=== PATIENT | male | born 1955 | race Caucasian/White ===

== ENCOUNTER 2025-11-07 12:31 | Inpatient (IN) ==
--- NOTE | 2025-11-07 13:14 | XRay Report ---
SINGLE VIEW CHEST CLINICAL HISTORY: Dyspnea FINDINGS: An AP, portable, semierect chest radiograph is compared to chest x-ray and chest CT dated . A 2-lead cardiac pacemaker is in place. Leads project over the right atrial appendage and r ight ventricle. The heart is enlarged and no definite atherosclerotic calcification of the thoracic a abrahan. There is pulmonary vascular congestion with interstitial edema. Small pleural effusions are jose antonio pected with bibasilar consolidation. No pneumothorax is seen. The skeletal structures are osteopenic. The bony thorax is grossly intact. Arthritic change is seen in the shoulders. IMPRESSION: 1. Cardiomegaly and cardiac pacemaker with evidence of congestive failure and pulmonary edema. 2. Small pleural effusions with dependent consolidation. ACT 112: Negative or not required by law. Electronically signed by: Jeramy Orona M.D. 11/07/2025 1:12 PM
--- NOTE | 2025-11-07 13:16 | Emergency Department Note ---
Impression & Plan Acute on chronic hypoxic respiratory failure, Decompensated heart failure with preserved ejection fraction (HFpEF), Anemia, MARIAA (acute kidney injury) ED Provider Note NAME: SAMANTA SPIVEY AGE: 70 SEX: M : 1955 ARRIVES VIA: Ambulance INFORMANT: Patient, ED PROVIDER(S): Sean Souza MD CHIEF COMPLAINT: Shortness of breath MEDICAL DECISION MAKING: Blood work shows a white count of 7 with a hemoglobin of 8.2, platelet count kidney function is elevated at 1.88. Troponin of 34 with a BNP of 218. Patient did receive IV Lasix. Given patient's concern of shortness of breath and possible volume overload such as CHF exacerbation I did speak the on-call hospitalist service and the patient was admitted to medicine service. Critical Care: I have personally spent 35 minutes of critical care time in direct management of this patient. This includes bedside care, interpretation of diagnostic studies, and testing, discussion with consultants, patient, and family members, and other require inpatient management activities. This 35 minutes is in excess of all separately billable procedures. Discussion w/ other healthcare providers: Teresa Dickerson PA-C with Dr. Chen patient presents Prior /Outside records reviewed: None Differential diagnosis: Differential disc Diagnostics, as interpreted by me: ECG: V paced rhythm, rate 79 wide QRS left lower branch block pattern. No obvious STEMI based on Sgarbossa criteria Cardiac monitoring: An order was placed for continuous cardiac monitoring. The monitor shows a rate of with rhythm. Patient was placed on pulse oximetry Medical decision rules: None Imaging studies: I informally interpreted the patient's chest x-ray concerning for pulmonary edema with formal report to follow. HPI: Patient presents into the ER via ambulance for shortness of breath. He stated that he couldn't breath which prompted calling 911. Reports that he can breathe better now. He reports that in the ambulance they gave him oxygen. He says that his shortness of breath started 5-6 weeks ago and was also in the hospital and was diagnosed with COPD and pneumonia. For the past 5-6 weeks he has been using 2L of oxygen at home. He does have a pacemaker but is not sure if it has an IED with it. Denies any added salt in diet. He also states that he can lay on his back. He does admit to leg swelling but could not tell me if it is at baseline or not. Denies fever, chest pain, PND, lightheadedness, blurry vision, N/V/D, and orthostatic hypotension. PAST MEDICAL HISTORY: See Below PAST SURGICAL HISTORY: See Below SOCIAL HISTORY: See Below HOME MEDICATIONS: See Below ALLERGIES: See Below VITALS: See Below PHYSICAL EXAMINATION: GENERAL: NAD, non-toxic. Nasal cannula in place. EYE EXAM: Normal conjunctiva. PERRL, no anisocoria and EOM's grossly intact w/o pain. OROPHARYNX: Moist mucus membranes, grossly normal dentition. NECK: Trachea midline, no stridor. LUNGS: Bibasilar crackles. Normal chest wall mechanics. HEART: NSR, no MRG. ABDOMEN: Abdomen soft, non-tender, no masses, no rebound or guarding. BACK: No CVA TTP. SKIN: No rashes and no bruising. UPPER EXTREMITIES: Upper extremities are grossly normal. LOWER EXTREMITIES: Grossly normal, 1+ metric lower extremity edema without Ney erythema. Thema NEURO EXAM: Awake and alert, follows commands, no obvious facial asymmetry, normal speech, moves all 4 extremities. Past Med/Surg History Problem List (Updated 11/11/25 @ 12:53 by Sean Souza MD) MARIAA (acute kidney injury) (Acute) Acute on chronic diastolic heart failure with preserved ejection fraction Acute on chronic hypoxic respiratory failure (Acute) Chronic hypoxic respiratory failure Anemia (Acute) Decompensated heart failure with preserved ejection fraction (HFpEF) (Acute) Medical History COPD (chronic obstructive pulmonary disease) CKD (chronic kidney disease), stage III History of subdural hematoma History of CVA (cerebrovascular accident) Combined systolic and diastolic congestive heart failure Paroxysmal atrial fibrillation DM (diabetes mellitus), type 2 Surgical History Pacemaker 2019 [place] [facility] [place] Pres[facility] of Watchman left atrial appendage closure device Perc closure transcath left atrial appendage w/endocardial implant (Bilateral) by Dr. Meeks 03/02/25 Incisional hernia s/p repair 04[place]11 [place] [facility] [place]P cardiac pacemaker procedure History of craniotomy Social History Smoking Status: Never smoker Hx Alcohol Use: No Hx Substance Use: No Preferred Language: Burkinan Communication Ability: Effective Creeler Required: No Beliefs That Will Affect Care: None Current Living Situation: Alone Current Living Situation Comment: Lives Alone Other Information That Helps Us Care for You: No Feels Safe at Home: Yes Safety Concerns: Feels Safe At This Time Assistive Devices: None Assistive Devices Comment: oxygen 2L at baseline Allergies Allergies Allergy/AdvReac Type Severity Reaction Status Date / Time Penicillins Allergy Unknown UNKNOWN Verified 07/02/15 00:43 Home Meds Home Medications Medication Instructions Recorded Confirmed amlodipine 10 mg tablet 10 mg PO DAILY 11/07/25 11/07/25 ascorbic acid (vitamin C) 500 mg 500 mg PO DAILY 11/07/25 11/07/25 chewable tablet (Vitamin C) aspirin 81 mg chewable tablet 81 mg PO DAILY 11/07/25 11/07/25 atorvastatin 40 mg tablet 40 mg PO DAILY 11/07/25 11/07/25 carvedilol 25 mg tablet 25 mg PO BID 11/07/25 11/07/25 cetirizine 10 mg tablet 10 mg PO DAILY 11/07/25 11/07/25 clopidogrel 75 mg tablet 75 mg PO DAILY 11/07/25 11/07/25 empagliflozin 25 mg tablet 25 mg PO DAILY 11/07/25 11/07/25 (Jardiance) famotidine 20 mg tablet 20 mg PO BID 11/07/25 11/07/25 ferrous sulfate 325 mg (65 mg 325 mg PO TID 11/07/25 11/07/25 iron) tablet folic acid 1 mg tablet 1 mg PO DAILY 11/07/25 11/07/25 furosemide 20 mg tablet 20 mg PO DAILY Edema 11/07/25 11/07/25 insulin degludec 100 unit/mL (3 18 unit subcut DAILY 11/07/25 11/07/25 mL) subcutaneous pen (Tresiba FlexTouch U-100 insulin) montelukast 10 mg tablet 10 mg PO HS 11/07/25 11/07/25 omeprazole 20 mg capsule,delayed 20 mg PO DAILY 11/07/25 11/07/25 release semaglutide 0.25 mg or 0.5 mg (2 0.5 mg subcut WK 11/07/25 11/07/25 mg/3 mL) subcutaneous pen injector (Ozempic) tiotropium bromide 2.5 2 inh inhalation DAILY 11/07/25 11/07/25 mcg/actuation mist for inhalation (Spiriva Respimat) Results & Data (ED) Vital Signs Vital Signs - 24 hr 11/07/25 12:45 11/07/25 12:45 11/07/25 12:45 Temperature 36.5 C Temperature Source Oral Pulse Rate Pulse Rate [Apical] 74 Pulse Rhythm Pulse Rhythm [Apical] Regular Pulse Strength Pulse Strength [Apical] Normal Respiratory Rate 19 Respiratory Effort / Characteristics Spontaneous Labored Spontaneous Labored Respiratory Depth Normal Respiratory Pattern Regular Regular Blood Pressure Blood Pressure [Right Arm] 142/74 H Blood Pressure Mean Blood Pressure Mean [Right Arm] 96 Blood Pressure Position Blood Pressure Position [Right Arm] Sitting Pulse Oximetry 93 93 Oxygen Delivery Method Nasal Cannula Nasal Cannula Nasal Cannula Oxygen Flow Rate 4 4 4 Sepsis Recent Fever Within 48 Hours Sepsis New/Unexplained Change in Mental Status Sepsis Action Taken by Nursing 11/07/25 12:47 11/07/25 12:53 11/07/25 13:02 Temperature 36.6 C Temperature Source Oral Pulse Rate 61 74 62 Pulse Rate [Apical] Pulse Rhythm Regular Regular Pulse Rhythm [Apical] Pulse Strength Normal Pulse Strength [Apical] Respiratory Rate 19 23 Respiratory Effort / Characteristics Spontaneous Labored Respiratory Depth Normal Respiratory Pattern Regular Blood Pressure 142/74 H Blood Pressure [Right Arm] Blood Pressure Mean 96 Blood Pressure Mean [Right Arm] Blood Pressure Position Sitting Blood Pressure Position [Right Arm] Pulse Oximetry 93 93 Oxygen Delivery Method Nasal Cannula Nasal Cannula Oxygen Flow Rate 4 4 Sepsis Recent Fever Within 48 Hours No Sepsis New/Unexplained Change in Mental Status N/A Sepsis Action Taken by Nursing No Action Required Home Medications Current Medication List: was personally reviewed by me Laboratory Data Attestation: I reviewed the patient's lab results. 11/11/25 05:14 11/11/25 05:14 Lab Results 11/07/25 Range/Units 12:50 WBC 7.29 (4.8-10.8) K/ul RBC 2.58 L (4.70-6.10) M/uL Hgb 8.2 L (14.0-18.0) g/dL Hct 26.5 L (42.0-52.0) % MCV 102.7 H (80.0-100.0) fL MCH 31.8 (25.0-34.0) pg MCHC 30.9 L (32.0-36.0) g/dL RDW Std Deviation 57.1 H (36.4-46.3) fL RDW Coeff of [place] 15.3 H (11.5-14.5) % Plt Count 220 (130-400) K/uL MPV 10.4 (9.4-12.4) fL Immature Gran % (Auto) 0.4 % Neut % (Auto) 79.5 % Lymph % (Auto) 8.8 % Hayes % (Auto) 8.2 % Eos % (Auto) 2.6 % Baso % (Auto) 0.5 % Neut # (Auto) 5.79 (1.40-6.50) K/uL Lymph # (Auto) 0.64 L (1.20-3.40) K/uL Hayes # (Auto) 0.60 H (0.11-0.59) K/uL Eos # (Auto) 0.19 (0.00-0.50) K/uL Baso # (Auto) 0.04 (0.00-0.20) K/uL Immature Gran # (Auto) 0.03 (0.01-0.20) K/uL Sodium 147 H (136-145) mmol/L Potassium 4.9 (3.5-5.1) mmol/L Chloride 112 H (98-107) mmol/L Carbon Dioxide 32 (21-32) mmol/L Anion Gap 3 (3-11) BUN 31 H (6-23) mg/dl Creatinine 1.88 H (0.6-1.4) mg/dl Est Cr Clr Drug Dosing 45.8 ml/min eGFR 37.96 BUN/Creatinine Ratio 16.5 (10-20) Glucose 119 H (70-99(Fasting)) mg/dl Calcium 8.8 (8.6-10.3) mg/dl Total Bilirubin 0.6 (0.2-1.0) mg/dl AST 14 (13-39) U/L ALT 10 (7-52) U/L Alkaline Phosphatase 92 (34-104) U/L Troponin I High Sens 34.1 H (0-20) pg/ml B-Natriuretic Peptide 218 H (0-100) pg/ml Total Protein 5.8 L (6.0-8.3) gm/dl Albumin 3.5 (3.4-5.0) gm/dl Globulin 2.3 L (2.5-4.0) gm/dl Albumin/Globulin Ratio 1.5 (0.9-2) Administered Medications Albuterol (Albut/Ipratrop 3mg/0.5mg Neb 3 Ml Vial) 3 ml NEB Q6R [facility]; Protocol Stop: 12/08/25 12:59 Last Admin: 11/11/25 07:23 Dose: 3 ml Documented By: Admin: 11/11/25 01:47 Dose: Not Given Documented By: Admin: 11/10/25 20:06 Dose: 3 ml Documented By: Admin: 11/10/25 12:07 Dose: 3 ml Documented By: Admin: 11/10/25 07:09 Dose: 3 ml Documented By: Admin: 11/10/25 01:06 Dose: Not Given Documented By: Admin: 11/09/25 20:40 Dose: 3 ml Documented By: Admin: 11/09/25 13:22 Dose: 3 ml Documented By: Admin: 11/09/25 07:05 Dose: 3 ml Documented By: Admin: 11/09/25 00:11 Dose: 3 ml Documented By: Admin: 11/08/25 19:43 Dose: 3 ml Documented By: Admin: 11/08/25 11:59 Dose: 3 ml Documented By: MARK Amlodipine Besylate (Amlodipine Besylate 5 Mg Tab) 5 mg PO DAILY [facility] Stop: 12/10/25 08:59 Last Admin: 11/11/25 08:58 Dose: 5 mg Documented By: Admin: 11/10/25 08:56 Dose: 5 mg Documented By: GIANFRANCO Ascorbic Acid (Ascorbic Acid 500 Mg Tab) 500 mg PO DAILY [facility] Stop: 12/08/25 08:59 Last Admin: 11/11/25 08:59 Dose: 500 mg Documented By: Admin: 11/10/25 08:56 Dose: 500 mg Documented By: Admin: 11/09/25 08:54 Dose: 500 mg Documented By: MARIA R Admin: 11/08/25 09:46 Dose: 500 mg Documented By: FRANTZ Aspirin (Aspirin 81 Mg Chew) 81 mg PO DAILY [facility] Stop: 12/08/25 08:59 Last Admin: 11/11/25 09:06 Dose: 81 mg Documented By: Admin: 11/10/25 08:57 Dose: 81 mg Documented By: Admin: 11/09/25 09:01 Dose: 81 mg Documented By: MARIA R Admin: 11/08/25 09:45 Dose: 81 mg Documented By: FRANTZ Atorvastatin Calcium (Atorvastatin 40 Mg Tab) 40 mg PO DAILY [facility] Stop: 12/08/25 08:59 Last Admin: 11/11/25 08:59 Dose: 40 mg Documented By: Admin: 11/10/25 08:57 Dose: 40 mg Documented By: Admin: 11/09/25 08:54 Dose: 40 mg Documented By: MARIA R Admin: 11/08/25 09:46 Dose: 40 mg Documented By: FRANTZ Carvedilol (Carvedilol 25 Mg Tab) 25 mg PO BIDM [facility] Stop: 12/07/25 20:59 Last Admin: 11/11/25 08:58 Dose: 25 mg Documented By: Admin: 11/10/25 17:43 Dose: 25 mg Documented By: Admin: 11/10/25 08:56 Dose: 25 mg Documented By: Admin: 11/09/25 17:54 Dose: 25 mg Documented By: MARIA R Cetirizine HCl (Cetirizine Hcl 10 Mg Tablet) 10 mg PO DAILY [facility] Stop: 12/08/25 08:59 Last Admin: 11/11/25 08:58 Dose: 10 mg Documented By: Admin: 11/10/25 08:57 Dose: 10 mg Documented By: Admin: 11/09/25 08:54 Dose: 10 mg Documented By: MARIA R Admin: 11/08/25 09:46 Dose: 10 mg Documented By: FRANTZ Famotidine (Famotidine 20 Mg Tab) 20 mg PO BID [facility] Stop: 12/07/25 20:59 Last Admin: 11/11/25 09:06 Dose: 20 mg Documented By: Admin: 11/10/25 20:59 Dose: 20 mg Documented By: Admin: 11/10/25 08:58 Dose: 20 mg Documented By: Admin: 11/09/25 20:21 Dose: 20 mg Documented By: Admin: 11/09/25 09:01 Dose: 20 mg Documented By: MARIA R Admin: 11/08/25 19:41 Dose: 20 mg Documented By: Admin: 11/08/25 09:46 Dose: 20 mg Documented By: Admin: 11/07/25 22:00 Dose: 20 mg Documented By: MCKENZIE Ferrous Sulfate (Ferrous Sulfate 325 Mg Tab) 325 mg PO DAILY [facility] Stop: 12/08/25 08:59 Last Admin: 11/11/25 08:58 Dose: 325 mg Documented By: Admin: 11/10/25 08:56 Dose: 325 mg Documented By: Admin: 11/09/25 08:53 Dose: 325 mg Documented By: MARIA R Admin: 11/08/25 09:47 Dose: 325 mg Documented By: FRANTZ Folic Acid (Folic Acid 1 Mg Tab) 1 mg PO DAILY [facility] Stop: 12/08/25 08:59 Last Admin: 11/11/25 08:58 Dose: 1 mg Documented By: Admin: 11/10/25 08:57 Dose: 1 mg Documented By: Admin: 11/09/25 08:54 Dose: 1 mg Documented By: MARIA R Admin: 11/08/25 09:47 Dose: 1 mg Documented By: FRANTZ Furosemide (Furosemide 40 Mg/4 Ml Vial) 40 mg IV BID [facility] Stop: 12/11/25 08:59 Last Admin: 11/11/25 09:00 Dose: 40 mg Documented By: Insulin Aspart (Insulin Aspart Per Unit Charge) 0 units SC ACHS [facility] Stop: 12/07/25 16:29 Last Admin: 11/11/25 12:27 Dose: 10 units Documented By: EUNICE Co-signed By: MICKIE Admin: 11/11/25 08:00 Dose: 5 units Documented By: EUNICE Co-signed By: RUTHANN Admin: 11/10/25 20:52 Dose: Not Given Documented By: Admin: 11/10/25 17:43 Dose: 4 units Documented By: GIANFRANCO Co-signed By: ASHWIN Admin: 11/10/25 12:37 Dose: Not Given Documented By: Admin: 11/10/25 08:53 Dose: 3 units Documented By: GIANFRANCO Co-signed By: MAGNO Admin: 11/09/25 20:19 Dose: Not Given Documented By: Admin: 11/09/25 17:53 Dose: 2 units Documented By: MARIA R Co-signed By: ASHWIN Admin: 11/09/25 12:29 Dose: 3 units Documented By: WS Co-signed By: EP Admin: 11/09/25 08:56 Dose: 3 units Documented By: MARIA R Co-signed By: EP Admin: 11/08/25 21:21 Dose: 1 units Documented By: CONSTANTINO Co-signed By: ZAIN Admin: 11/08/25 17:41 Dose: 1 units Documented By: CECILIA Co-signed By: NM Admin: 11/08/25 13:01 Dose: Not Given Documented By: FRANTZ Co-signed By: CARLITOS Admin: 11/08/25 09:02 Dose: Not Given Documented By: AK Co-signed By: GIANFRANCO Admin: 11/07/25 21:47 Dose: Not Given Documented By: Admin: 11/07/25 18:11 Dose: 1 units Documented By: Co-signed By: dst Insulin Glargine (Lantus Per Unit Charge) 10 units SQ DAILY [facility] Stop: 12/11/25 08:59 Last Admin: 11/11/25 09:08 Dose: 10 units Documented By: EUNICE Co-signed By: RUTHANN Miscellaneous (Carbohydrates For Hypoglycemia ) 15 - 30 gm PO UD PRN PRN Reason: Hypoglycemia Protocol Stop: 12/07/25 15:25 Last Admin: 11/08/25 02:00 Dose: 30 gm Documented By: [facility] Admin: 11/07/25 21:09 Dose: 24 gm Documented By: [facility] Admin: 11/07/25 20:38 Dose: 30 gm Documented By: [facility] Montelukast Sodium (Montelukast Sodium 10 Mg Tablet) 10 mg PO HS [facility] Stop: 12/07/25 20:59 Last Admin: 11/10/25 21:01 Dose: 10 mg Documented By: DAFrancine Admin: 11/09/25 20:21 Dose: 10 mg Documented By: Admin: 11/08/25 19:41 Dose: 10 mg Documented By: Admin: 11/07/25 22:00 Dose: 10 mg Documented By: [facility] Pantoprazole Sodium (Pantoprazole 40 Mg Tab) 40 mg PO DAILY [facility] Stop: 12/08/25 08:59 Last Admin: 11/11/25 08:58 Dose: 40 mg Documented By: Admin: 11/10/25 08:57 Dose: 40 mg Documented By: Admin: 11/09/25 08:54 Dose: 40 mg Documented By: MARIA R Admin: 11/08/25 09:47 Dose: 40 mg Documented By: FRANTZ Umeclidinium [place] (Umeclidinium [place] 62.5mcg/Blister 7 Puffs/Inhaler) 1 puffs INH DAILY [facility] Stop: 12/08/25 08:59 Last Admin: 11/11/25 08:55 Dose: 1 puffs Documented By: Admin: 11/10/25 08:57 Dose: 1 puffs Documented By: Admin: 11/09/25 09:02 Dose: 1 puffs Documented By: MARIA R Admin: 11/08/25 09:47 Dose: 1 puffs Documented By: FRANTZ Discontinued Medications Amlodipine Besylate (Amlodipine Besylate 5 Mg Tab) 10 mg PO DAILY [facility] Stop: 12/08/25 08:59 Last Admin: 11/09/25 08:54 Dose: 10 mg Documented By: MARIA R Admin: 11/08/25 09:46 Dose: 10 mg Documented By: FRANTZ Carvedilol (Carvedilol 25 Mg Tab) 25 mg PO BID [facility] Stop: 12/07/25 20:59 Last Admin: 11/09/25 08:53 Dose: 25 mg Documented By: MARIA R Admin: 11/08/25 19:41 Dose: 25 mg Documented By: Admin: 11/08/25 09:46 Dose: 25 mg Documented By: Admin: 11/07/25 22:00 Dose: 25 mg Documented By: MCKENZIE Empagliflozin (Empagliflozin 25 Mg Tab) 25 mg PO DAILY [facility] Stop: 12/08/25 08:59 Last Admin: 11/09/25 08:54 Dose: 25 mg Documented By: MARIA R Furosemide (Furosemide 40 Mg/4 Ml Vial) 40 mg IV ONE ONE Stop: 11/07/25 13:36 Last Admin: 11/07/25 15:57 Dose: Not Given Documented By: MARTIN Furosemide (Furosemide 40 Mg/4 Ml Vial) 40 mg IV ONE ONE Stop: 11/07/25 15:55 Last Admin: 11/07/25 16:04 Dose: 40 mg Documented By: MARTIN Furosemide (Furosemide Inj 20 Mg/2 Ml Vial) 20 mg IV ONE ONE Stop: 11/07/25 21:01 Last Admin: 11/07/25 22:00 Dose: 20 mg Documented By: MCKENZIE Furosemide (Furosemide 40 Mg/4 Ml Vial) 40 mg IV DAILY [facility] Stop: 12/08/25 08:59 Last Admin: 11/08/25 09:51 Dose: 40 mg Documented By: FRANTZ Furosemide (Furosemide 40 Mg/4 Ml Vial) 40 mg IV ONE ONE Stop: 11/08/25 16:28 Last Admin: 11/08/25 17:34 Dose: 40 mg Documented By: CECILIA Furosemide (Furosemide 40 Mg/4 Ml Vial) 40 mg IV ONE ONE Stop: 11/10/25 16:13 Last Admin: 11/10/25 17:43 Dose: 40 mg Documented By: GIANFRANCO Furosemide (Furosemide Inj 20 Mg/2 Ml Vial) 20 mg IV ONE ONE Stop: 11/11/25 00:21 Last Admin: 11/11/25 00:49 Dose: 20 mg Documented By: MAICO Dextrose (D5w) 1,000 mls @ 40 mls/hr IV .Q24H [facility] Stop: 11/11/25 03:14 Last Infusion: 11/09/25 00:49 Dose: Infused Documented By: Infusion: 11/08/25 17:27 Dose: 0 mls/hr Documented By: Admin: 11/08/25 04:15 Dose: 40 mls/hr Documented By: MCKENZIE Iron Sucrose 300 mg/ Sodium (Chloride) 265 mls @ 176.667 mls/hr IV TODAY ONE Stop: 11/09/25 10:44 Last Admin: 11/09/25 10:47 Dose: Not Given Documented By: MARIA R Methylprednisolone 40 mg/ (Syringe) 0.64 mls @ 1.5 mls/min IV BID [facility] Stop: 12/10/25 20:59 Last Admin: 11/11/25 08:57 Dose: 1.5 mls/min Documented By: Admin: 11/10/25 21:00 Dose: 1.5 mls/min Documented By: MAICO Insulin Glargine (Lantus Per Unit Charge) 5 units SQ DAILY [facility] Stop: 12/09/25 08:59 Last Admin: 11/10/25 08:53 Dose: 5 units Documented By: GIANFRANCO Co-signed By: MAGNO Admin: 11/09/25 08:57 Dose: 5 units Documented By: MARIA R Co-signed By: ASHWIN Imaging Data Radiologist's Impression: Chest X-Ray 11/07/25 12:55 SINGLE VIEW CHEST CLINICAL HISTORY: Dyspnea FINDINGS: An AP, portable, semierect chest radiograph is compared to chest x-ray and chest CT dated 07/02/2015. A 2-lead cardiac pacemaker is in place. Leads project over the right atrial appendage and right ventricle. The heart is enlarged and no definite atherosclerotic calcification of the thoracic aorta. There is pulmonary vascular congestion with interstitial edema. Small pleural effusions are suspected with bibasilar consolidation. No pneumothorax is seen. The skeletal structures are osteopenic. The bony thorax is grossly intact. Arthritic change is seen in the shoulders. IMPRESSION: 1. Cardiomegaly and cardiac pacemaker with evidence of congestive failure and pulmonary edema. 2. Small pleural effusions with dependent consolidation. ACT 112: Negative or not required by law. Electronically signed by: Jeramy Orona M.D. 11/07/2025 1:12 PM Discharge Plan Visit Data Chief Complaint: Shortness of Breath/Dyspnea Stated Complaint: FLUID RETENTION ED Provider: Sean Souza Discharge Problem: Acute on chronic hypoxic respiratory failure, Decompensated heart failure with preserved ejection fraction (HFpEF), Anemia, MARIAA (acute kidney injury) Patient Disposition: Admitted As Inpatient Condition: Good Discharge Instructions Interventions: ED Discharge Assessment Last Done: 11/07/25 16:10 Discharge Problem: Anemia Qualifiers: Anemia type: unspecified type Qualified Code(s): D64.9 - Anemia, unspecified
[2025-11-07 13:19] LABS: Hematocrit (blood only) 26.5 % (42.0-52.0); Hemoglobin 8.2 g/dL (14.0-18.0); Immature Granulocytes # (auto) 0.03 K/uL (0.01-0.20); Immature Granulocytes % (auto) 0.4 %; Mean Corpuscular Hemoglobin 31.8 pg (25.0-34.0); Mean Corpuscular Volume 102.7 fL (80.0-100.0); Platelet Count 220 K/uL (130-400); RDW Standard Deviation 57.1 fL (36.4-46.3); Red Blood Count 2.58 M/uL (4.70-6.10); White Blood Count 7.29 K/ul (4.8-10.8)
[2025-11-07 13:45] LABS: Alanine Aminotransferase 10.0 U/L (7-52); Albumin Globulin Ratio 1.5 (0.9-2); Albumin Level 3.5 gm/dl (3.4-5.0); Alkaline Phosphatase 92.0 U/L (34-104); Anion Gap 3.0 (3-11); Bilirubin,Total 0.6 mg/dl (0.2-1.0); Blood Urea Nitrogen 31.0 mg/dl (6-23); Calcium 8.8 mg/dl (8.6-10.3); Carbon Dioxide 32.0 mmol/L (21-32); Chloride 112.0 mmol/L (98-107); Creatinine Clr Calc Pharmacy 45.8 ml/min; Globulin 2.3 gm/dl (2.5-4.0); Glucose 119.0 mg/dl (70-99(Fasting)); Potassium 4.9 mmol/L (3.5-5.1); Sodium 147.0 mmol/L (136-145); Total Protein 5.8 gm/dl (6.0-8.3)
--- NOTE | 2025-11-07 14:14 | History & Physical Report ---
Date of Service November 07, 2025 Assessment & Plan (1) Chronic hypoxic respiratory failure: (2) Decompensated heart failure with preserved ejection fraction (HFpEF): (3) Anemia: (4) CKD (chronic kidney disease), stage III: (5) History of CVA (cerebrovascular accident): (6) Combined systolic and diastolic congestive heart failure: (7) Paroxysmal atrial fibrillation: (8) DM (diabetes mellitus), type 2: Plan This is a 70yo M with PMH of combined systolic and diastolic HF, type 2 diabetes, hypertension, COPD, heart block s/p pacemaker placement, paroxysmal atrial fibrillation, history of CVA, CKD 3, chronic hypoxic respiratory failure on 2L NC and other medical problems listed below who presents from home with increased shortness of breath and lower extremity swelling x 4 weeks. Acute on chronic respiratory failure Decompensated HFpEF Discharged from hospitalization at [place] for PNA in August 2025 with new 2 L O2 requirement, has continued to require at home In ED today, initially requiring 3-4 L for comfort, weaning as tolerated CXR reviewed - cardiomegaly and cardiac pacemaker with evidence of congestive failure and pulmonary edema Recent echo from 10/26/25, similar compared to previous echo from Nov 2023. EF remains 50-54%, with septal motion is abnormal consistent with right ventricular pacemaker. The left atrium is moderately enlarged BNP 218, HS trop 34.1 -> 39.8 ECG with paced rhythm Given 40mg IV Lasix in ED, plan for add'l 20mg this evening Strict I&Os, daily weights, low Na diet Routine cards consult Anemia, macrocytic Hgb 8-9 since August, was closer to 10 prior to that Was on DAPT for Watchman device placed in February, instructed to dc plavix last month per chart review but patient ? still taking - discontinue plavix Has been supplementing with iron TID per patient ? continue at daily dose Iron studies, Vit B12 and folate in AM CKD 3 Cr 1.88, baseline Cr~2. Follows with Dr. Bauman in clinic Presence of Watchman left atrial appendage closure device Dc plavix per interventional cards note instructions, continue aspirin 81mg daily indefinitely S/p pacemaker placement in 2018 Type 2 diabetes A1c 6.4 in 08/2025 Hold home agents SSI while in-patient Glycemic consult placed due to hypoglycemic episode - appreciate recs for OP regimen BSG ACHS DVT Ppx: SCDs for now Code status: FULL PCP: Opal Galeas Dispo: Admitted to PCU Patient seen in collaboration with Dr. Chen. Please see addendum. I spent a total of 75 minutes coordinating, documenting, and providing care for this patient excluding time spent in the performance of separately billed services or time spent by another provider/QHP. History of Present Illness Chief Complaint: SOB Primary Care Provider: Reji Love MD This is a 70yo M with PMH of combined systolic and diastolic HF, type 2 diabetes, hypertension, COPD, heart block s/p pacemaker placement, paroxysmal atrial fibrillation, history of CVA, CKD 3, chronic hypoxic respiratory failure on 2L NC and other medical problems listed below who presents from home with increased shortness of breath and lower extremity swelling x 4 weeks. Ever since patient was admitted to [facility] in August for pneumonia, has felt more short of breath. Was discharged from that admission on 2 L nasal cannula O2, which she has remained on at home. Patient continues to feel short of breath, which is exacerbated by movement and feels generally weak and fatigued compared to the past. Had a Watchman device implanted by Dr. Meeks in February of this year and was instructed via [employer] to discontinue Plavix last month. Patient is unsure if he is still taking this or not. He manages his own medications. He was started by his agronomy advisor on Lasix 20 mg twice daily, per chart review. However, patient states he has been taking 20 mg daily at home, last dose this morning. Denies any fever, chills, nasal congestion, sore throat or wheezing. No headache, chest pain pain or palpitations. No nausea, vomiting, abdominal pain, dysuria, diarrhea or constipation. Ambulates with a walker at home but admittedly does not use it. Last echo performed 10/26/25 and was stable as compared to previous echo from Nov 2023. EF remains 50-54%, with septal motion is abnormal consistent with right ventricular pacemaker. The left atrium is moderately enlarged. Allergies Allergy/AdvReac Type Severity Reaction Status Date / Time Penicillins Allergy Unknown UNKNOWN Verified 07/02/15 00:43 Home Medications Medication Instructions Recorded Confirmed Type amlodipine 10 mg tablet 10 mg PO DAILY 11/07/25 11/07/25 History ascorbic acid (vitamin C) 500 mg 500 mg PO DAILY 11/07/25 11/07/25 History chewable tablet (Vitamin C) aspirin 81 mg chewable tablet 81 mg PO DAILY 11/07/25 11/07/25 History atorvastatin 40 mg tablet 40 mg PO DAILY 11/07/25 11/07/25 History carvedilol 25 mg tablet 25 mg PO BID 11/07/25 11/07/25 History cetirizine 10 mg tablet 10 mg PO DAILY 11/07/25 11/07/25 History clopidogrel 75 mg tablet 75 mg PO DAILY 11/07/25 11/07/25 History empagliflozin 25 mg tablet 25 mg PO DAILY 11/07/25 11/07/25 History (Jardiance) famotidine 20 mg tablet 20 mg PO BID 11/07/25 11/07/25 History ferrous sulfate 325 mg (65 mg 325 mg PO TID 11/07/25 11/07/25 History iron) tablet folic acid 1 mg tablet 1 mg PO DAILY 11/07/25 11/07/25 History furosemide 20 mg tablet 20 mg PO DAILY Edema 11/07/25 11/07/25 History insulin degludec 100 unit/mL (3 18 unit subcut DAILY 11/07/25 11/07/25 History mL) subcutaneous pen (Tresiba FlexTouch U-100 insulin) montelukast 10 mg tablet 10 mg PO HS 11/07/25 11/07/25 History omeprazole 20 mg capsule,delayed 20 mg PO DAILY 11/07/25 11/07/25 History release semaglutide 0.25 mg or 0.5 mg (2 0.5 mg subcut WK 11/07/25 11/07/25 History mg/3 mL) subcutaneous pen injector (Ozempic) tiotropium bromide 2.5 2 inh inhalation DAILY 11/07/25 11/07/25 History mcg/actuation mist for inhalation (Spiriva Respimat) Past Med/Surg History Problem List (Updated 11/07/25 @ 15:51 by Teresa Dickerson PA-C) Chronic hypoxic respiratory failure Anemia Decompensated heart failure with preserved ejection fraction (HFpEF) Medical History (Updated 11/07/25 @ 15:51 by Teresa Dickerson PA-C) CKD (chronic kidney disease), stage III History of subdural hematoma History of CVA (cerebrovascular accident) Combined systolic and diastolic congestive heart failure Paroxysmal atrial fibrillation DM (diabetes mellitus), type 2 Surgical History (Updated 11/07/25 @ 15:47 by Teresa Dickerson PA-C) Pacemaker 2019 S/P small bowel resection @ [facility] [place], 2019 Presence of Watchman left atrial appendage closure device Perc closure transcath left atrial appendage w/endocardial implant (Bilateral) by Dr. Meeks 03/02/25 Incisional hernia s/p repair 04/11 at [facility] [place] S/P cardiac pacemaker procedure History of craniotomy Social History Smoking Status: Never smoker Hx Alcohol Use: No Hx Substance Use: No Preferred Language: Cameroonian Communication Ability: Effective Can Feeder Required: No Beliefs That Will Affect Care: None Current Living Situation: Alone Current Living Situation Comment: Lives Alone Other Information That Helps Us Care for You: No Feels Safe at Home: Yes Safety Concerns: Feels Safe At This Time Assistive Devices: Oxygen - Continuous Assistive Devices Comment: oxygen 2L at baseline Review of Systems Review of Systems: At least ten systems reviewed and negative except as noted in the HPI. Physical Exam Physical Exam: General Appearance: WD/WN, vitals as above, NAD, sitting up in bed, pleasant, conversational dyspnea Head: normocephalic, atraumatic Eyes: normal inspection, PERRL, conjunctivae normal, anicteric sclerae ENT: external ear and nose normal Neck: normal visual inspection Respiratory: increased respiratory effort, bibasilar rales, no wheeze or, rhonchi Cardiovascular: RRR, 1+ BLE edema Chest: normal inspection of chest Abdomen/GI: normal bowel sounds, soft, nontender, no hepatosplenomegaly Extremities/Musculoskeletal: no cyanosis or clubbing, extremities motor stre ngth 5/5 Neurologic: PERRL, EOMI, accommodation nl, no face palsy, no dysarthria, CN's II-XI intact bilaterally and moves all extremities Psychiatric: A+Ox3, poor insight Skin: normal color, warm/dry Results & Data Results & Data Vital Signs (Past 12 Hours) Vital Signs Temp Pulse Pulse Resp BP BP Pulse Ox 11/07/25 13:02 62 23 93 11/07/25 12:53 36.6 C 74 19 142/74 H 93 11/07/25 12:47 61 11/07/25 12:45 36.5 C 74 19 142/74 H 93 11/07/25 12:45 93 11/07/25 12:45 O2 Del Method O2 Flow Rate 11/07/25 13:02 Nasal Cannula 4 11/07/25 12:53 Nasal Cannula 4 11/07/25 12:47 11/07/25 12:45 Nasal Cannula 4 11/07/25 12:45 Nasal Cannula 4 11/07/25 12:45 Nasal Cannula 4 Laboratory Results Short CBC 11/07/25 Range/Units 12:50 WBC 7.29 (4.8-10.8) K/ul Hgb 8.2 L (14.0-18.0) g/dL Hct 26.5 L (42.0-52.0) % Plt Count 220 (130-400) K/uL BMP 11/07/25 12:50 Sodium 147 H Potassium 4.9 Chloride 112 H Carbon Dioxide 32 BUN 31 H Creatinine 1.88 H Glucose 119 H Calcium 8.8 Liver Function 11/07/25 Range/Units 12:50 Total Bilirubin 0.6 (0.2-1.0) mg/dl AST 14 (13-39) U/L ALT 10 (7-52) U/L Alkaline Phosphatase 92 (34-104) U/L Albumin 3.5 (3.4-5.0) gm/dl Diagnostic Findings Chest X-Ray 11/07/25 12:55 SINGLE VIEW CHEST CLINICAL HISTORY: Dyspnea FINDINGS: An AP, portable, semierect chest radiograph is compared to chest x-ray and chest CT dated 07/02/2015. A 2-lead cardiac pacemaker is in place. Leads project over the right atrial appendage and right ventricle. The heart is enlarged and no definite atherosclerotic calcification of the thoracic aorta. There is pulmonary vascular congestion with interstitial edema. Small pleural effusions are suspected with bibasilar consolidation. No pneumothorax is seen. The skeletal structures are osteopenic. The bony thorax is grossly intact. Arthritic change is seen in the shoulders. IMPRESSION: 1. Cardiomegaly and cardiac pacemaker with evidence of congestive failure and pulmonary edema. 2. Small pleural effusions with dependent consolidation. ACT 112: Negative or not required by law. Electronically signed by: Jeramy Orona M.D. 11/07/2025 1:12 PM Supervising Physician Co-Signing Physician Notes Attending Addendum: Case reviewed with the advanced practitioner. I have personally performed a history and physical examination on the patient. I have reviewed the advanced practitioner's documentation on the date of service referenced in note, and I agree with, and take responsibility for the plan of care. please refer to her notes for full details patient seen and examined, records reviewed by myself as well on exam, patient seen resting in bed, comfortable states he feels ok overall breathing is somewhat improving denies cough, sputum production, fever/chills, chest pain no other symptoms VS noted and reviewed oriented x3, not in distress, speaks in sentences with no effort nor accessory muscle use normal rate, regular rhythm, no murmurs (+) mild rales at the bases non distended, soft, nontender (+) grade 1 lower ext edema, No erythema, warmth no neuro deficits all labs, imaging noted and reviewed ASSESSMENT AND PLAN> ACUTE ON CHRONIC HFrEF EXACERBATION ACUTE HYPOXIA SECONDARY TO ABOVE Lasix 40mg IV given at the ER, another 20mg IV ordered for tonight re-evaluate in AM Recent echo from 10/26/25, similar compared to previous echo from Nov 2023. EF remains 50-54%, with septal motion is abnormal consistent with right ventricular pacemaker. The left atrium is moderately enlarged Cardiology service consulted ANEMIA check anemia panel other diagnoses and plan of care as per advanced practitioner's notes I spent a total of 45 minutes coordinating, documenting, and providing care for this patient, excluding time spent in the performance of separately billed services or time spent by another provider/QHP. Frankie Chen MD
[2025-11-07] MEDS ORDERED: GLUCOSE 10 TAB/TUBE PO PRN (15:26)
[2025-11-07] MEDS ORDERED: GLUCAGON FOR INJ 1 MG VIAL SQ PRN (15:26)
[2025-11-07] MEDS ORDERED: GLUCOSE 40% GEL 15 GM TUBE PO PRN (15:26)
[2025-11-07] MEDS ORDERED: DEXTROSE 50% 50 ML SYRINGE IV PRN (15:26)
[2025-11-07] MEDS: FUROSEMIDE 40 MG/4 ML VIAL IV ONE ×2 (15:57→16:04)
[2025-11-07] MEDS ORDERED: PHARMACY GLYCEMIC MGMT CONSULT PRN (16:16)
[2025-11-07] MEDS ORDERED: POLYETHYLENE (MIRALAX) 17 GM PACK PO PRN (16:32)
[2025-11-07] MEDS ORDERED: ACETAMINOPHEN 325 MG TAB PO PRN (16:32)
[2025-11-07] MEDS ORDERED: ONDANSETRON INJ 2 MG/ML 2 ML VIAL IV PRN (16:32)
[2025-11-07] MEDS ORDERED: INFLUENZA VACC TS2025-26(65y+)/PF (IIV3) 0.5mL Syr IM ONE (17:11)
[2025-11-07] MEDS ORDERED: PNEUMOCOCCAL VACCINE (PCV20) 20-VAL CONJ-DIP CRM/PF 0.5 ML SYR IM ONE (17:11)
[2025-11-07] MEDS: INSULIN ASPART PER UNIT CHARGE SC SCH (18:11)
[2025-11-07] MEDS: CARBOHYDRATES FOR HYPOGLYCEMIA PO PRN (20:38)
[2025-11-07] MEDS ORDERED: LANTUS PER UNIT CHARGE SQ SCH (21:00)
[2025-11-07] MEDS: FAMOTIDINE 20 MG TAB PO SCH (22:00)
[2025-11-07] MEDS: FUROSEMIDE INJ 20 MG/2 ML VIAL IV ONE (22:00)
[2025-11-07] MEDS: MONTELUKAST SODIUM 10 MG TABLET PO SCH (22:00)
[2025-11-08] MEDS: DEXTROSE 5% 1,000 ML IV SCH (04:15)
[2025-11-08 05:58] LABS: Hematocrit (blood only) 28.2 % (42.0-52.0); Hemoglobin 8.5 g/dL (14.0-18.0); Mean Corpuscular Hemoglobin 31.3 pg (25.0-34.0); Mean Corpuscular Volume 103.7 fL (80.0-100.0); Platelet Count 225 K/uL (130-400); RDW Standard Deviation 58.0 fL (36.4-46.3); Red Blood Count 2.72 M/uL (4.70-6.10); White Blood Count 7.11 K/ul (4.8-10.8)
[2025-11-08 06:12] LABS: Anion Gap 5.0 (3-11); Blood Urea Nitrogen 34.0 mg/dl (6-23); Calcium 9.1 mg/dl (8.6-10.3); Carbon Dioxide 32.0 mmol/L (21-32); Chloride 108.0 mmol/L (98-107); Creatinine Clr Calc Pharmacy 42.6 ml/min; Glucose 87.0 mg/dl (70-99(Fasting)); Iron 31.0 mcg/dl (35-175); Magnesium 2.1 mg/dl (1.7-2.4); Potassium 5.0 mmol/L (3.5-5.1); Sodium 145.0 mmol/L (136-145); Total Iron Binding Cap Calc 267.0 mcg/dl (250-450); Transferrin 191.0 mg/dl (200-360); Transferrin (FE) Percent Satur 12.0 % (20-50)
[2025-11-08 06:40] LABS: Folate (Folic Acid),Ser orPlas > 22.30 ng/ml (>5.38)
[2025-11-08 06:41] LABS: Vitamin B12 270 pg/ml (180-914)
[2025-11-08 07:28] LABS: Hemoglobin A1C 6.7 % (4.5-5.6)
--- NOTE | 2025-11-08 07:56 | Hospitalist Progress Note ---
Date of Service November 08, 2025 Assessment & Plan (1) Acute on chronic hypoxic respiratory failure: (2) Acute on chronic diastolic heart failure with preserved ejection fraction: (3) COPD (chronic obstructive pulmonary disease): (4) Paroxysmal atrial fibrillation: (5) CKD (chronic kidney disease), stage III: (6) Anemia: (7) DM (diabetes mellitus), type 2: Plan This is a 70yo M with PMH of combined systolic and diastolic HF, type 2 diabetes, hypertension, COPD, heart block s/p pacemaker placement, paroxysmal atrial fibrillation, history of CVA, CKD 3, chronic hypoxic respiratory failure on 2L NC and other medical problems listed below who presents from home with i ncreased shortness of breath and lower extremity swelling x 4 weeks. Acute on chronic respiratory failure Acute on chronic HFpEF Discharged from hospitalization at [place] for COPD exacerbation secondary to PNA in Jul 2025 with new 2L O2 requirement Patient presenting with worsening SOB, edema, increased O2 requirement CXR reviewed - cardiomegaly and cardiac pacemaker with evidence of congestive failure and pulmonary edema TTE on 10/26/25 with EF 50-54%, septal motion is abnormal consistent with right ventricular pacemaker, left atrium is moderately enlarged -> similar compared to prior in Nov 2023 BNP 218 Currently on 3L O2-> try to wean to baseline of 2L as able Continue IV lasix 40mg daily for now (prescribed 20mg daily by PCP in Aug for LE edema) Continue daily weights, I&Os, low salt diet Cardiology following COPD Patient denies fevers and cough (although nursing notes productive cough), no leukocytosis Exacerbation possible but presentation likely due to CHF more than COPD Continue home Spiriva inhaler Add duonebs q6hr due to decreased air entry Follow up with Pulmonology as scheduled in November Paroxysmal A fib History of complete heart block s/p dual chamber pacemaker (2018) Presence of Watchman left atrial appendage closure device Rate controlled No longer on anticoagulation since presence of Watchman left atrial appendage closure device Continue baby aspirin and Coreg Macrocytic anemia Hgb 8-9 since August, was closer to 10 prior to that Started on iron supplementation during hospitalization at [place] PCP notes possible need for IV iron due to CKD and poor absorption of oral iron B12 and folate WNL Monitor CBC CKD [address] Bauman Creatinine at baseline of ~2.0 Avoid nephrotoxic agents as able Monitor renal function Type 2 diabetes A1c 6.7 Hold home agents BSG ACHS and SSI while inpatient Glycemic consult placed due to hypoglycemic episode - appreciate recs for OP regimen DVT Prophylaxis: SCDs Code Status: FULL CODE PCP: Reji Love Disposition: PT/OT recommending rehab at discharge Patient seen in collaboration with Dr. Rojas. Please see addendum. I spent a total of 60 minutes coordinating, documenting and providing care for this patient excluding time spent in the performance of separately billed services or time spent by another provider/QHP. Admission and Anticipated Discharge Date Admission Date: November 07, 2025 Supervising Physician Co-Signing Physician Notes Attending addendum: The patient was seen and examined in telemetry unit He was admitted with increasing shortness of breath and weakness and also leg swelling Noted to have combination of CHF on top of COPD and paroxysmal atrial fibrillation Has been feeling little better since admission Upon examination Sitting on a recliner without any acute distress Remains hemodynamically stable and requiring 3 L to maintain saturation Chestdecreased breath sounds bilaterally the lower area mainly with crackles at the bases. No wheezing HeartS1-S2 regular Abdomenbenign Extremitiesbilateral swelling of the legs with 1+ edema His admission labs, EKG and imaging studies reviewed Has a acute on chronic hypoxic respiratory failure complicated by acute on chronic diastolic heart failure , atrial fibrillation and also COPD Does not have any COPD exacerbationWill continue with nebulized bronchodilator and he is usual inhalers Has been getting intravenous Lasix for fluid overload/acute on chronic diastolic CHF He usually takes 2 L of oxygen at home and now requiring 3 which is expected to improve Agree with assessment and plan as outlined above by Batsheva SPEAR and take the full responsibility of care in the hospital Total time taken to see the patient, examining him, reviewing medications and labs and planning care was [address] Mary Rojas Subjective Patient seen resting in bed Reports he woke up feeling foggy Is unsure if his breathing is improved or not Denies dizziness, cough, chest pain, abdominal pain, N/V/D Review of Systems Review of Systems: All systems reviewed & are unremarkable except as noted in HPI & below Physical Exam Physical Exam: General/Psych: obese, sitting up in bed, NAD, conversing easily Head: normocephalic, atraumatic Eyes: normal inspection, PERRL, conjunctivae pink Neck: normal visual inspection, trachea midline Respiratory: normal respiratory effort, lungs with decreased air entry and slight crackles, no wheezing, no accessory muscle use Cardiovascular: regular rate and rhythm, +murmur Extremities: no cyanosis or clubbing, normal peripheral pulses, 2+ BLE edema Abdomen/GI: normal bowel sounds, soft, nontender Neurologic/MSK: A+Ox3, motor strength 5/5, moves all extremities Skin: no rashes, normal color, warm and dry Results & Data Results & Data Vital Signs (Past 12 Hours) Vital Signs Temp Pulse Pulse Resp BP Pulse Ox O2 Del Method 11/08/25 07:00 36.5 C 63 18 126/65 97 Nasal Cannula 11/08/25 02:38 37.4 C 88 20 122/78 96 Room Air 11/07/25 22:44 37.3 C 80 20 136/88 96 Nasal Cannula 11/07/25 21:34 80 11/07/25 20:50 Nasal Cannula O2 Flow Rate 11/08/25 07:00 3 11/08/25 02:38 11/07/25 22:44 11/07/25 21:34 11/07/25 20:50 3 Laboratory Results Short CBC 11/07/25 11/08/25 Range/Units 12:50 05:22 WBC 7.29 7.11 (4.8-10.8) K/ul Hgb 8.2 L 8.5 L (14.0-18.0) g/dL Hct 26.5 L 28.2 L (42.0-52.0) % Plt Count 220 225 (130-400) K/uL BMP 11/07/25 11/08/25 12:50 05:22 Sodium 147 H 145 Potassium 4.9 5.0 Chloride 112 H 108 H Carbon Dioxide 32 32 BUN 31 H 34 H Creatinine 1.88 H 2.02 H Glucose 119 H 87 Calcium 8.8 9.1 Liver Function 11/07/25 Range/Units 12:50 Total Bilirubin 0.6 (0.2-1.0) mg/dl AST 14 (13-39) U/L ALT 10 (7-52) U/L Alkaline Phosphatase 92 (34-104) U/L Albumin 3.5 (3.4-5.0) gm/dl I have independently reviewed and interpreted patient's labs including CBC, BMP, Mag, A1C, anemia panel Medications Administered Current Inpatient Medications Acetaminophen (Acetaminophen 325 Mg Tab) 650 mg PO Q4H PRN PRN Reason: Pain or Fever Stop: 12/07/25 16:31 Albuterol (Albut/Ipratrop 3mg/0.5mg Neb 3 Ml Vial) 3 ml NEB Q6R [facility]; Protocol Stop: 12/08/25 12:59 Amlodipine Besylate (Amlodipine Besylate 5 Mg Tab) 10 mg PO DAILY G[facility]IAN Stop: 12/08/25 08:59 Last Admin: 11/08/25 09:46 Dose: 10 mg Ascorbic Acid (Ascorbic Acid 500 Mg Tab) 500 mg PO DAILY GILLIAN Stop: 12/08/25 08:59 Last Admin: 11/08/25 09:46 Dose: 500 mg Aspirin (Aspirin 81 Mg Chew) 81 mg PO DAILY [facility] Stop: 12/08/25 08:59 Last Admin: 11/08/25 09:45 Dose: 81 mg Atorvastatin Calcium (Atorvastatin 40 Mg Tab) 40 mg PO DAILY [facility] Stop: 12/08/25 08:59 Last Admin: 11/08/25 09:46 Dose: 40 mg Carvedilol (Carvedilol 25 Mg Tab) 25 mg PO BID [facility] Stop: 12/07/25 20:59 Last Admin: 11/08/25 09:46 Dose: 25 mg Cetirizine HCl (Cetirizine Hcl 10 Mg Tablet) 10 mg PO DAILY [facility] Stop: 12/08/25 08:59 Last Admin: 11/08/25 09:46 Dose: 10 mg Dextrose (Dextrose 50% 50 Ml Syringe) 25 - 50 ml IV UD PRN; Protocol PRN Reason: Hypoglycemia Protocol Stop: 12/07/25 15:25 Empagliflozin (Empagliflozin 25 Mg Tab) 25 mg PO DAILY [facility] Stop: 12/08/25 08:59 Famotidine (Famotidine 20 Mg Tab) 20 mg PO BID [facility] Stop: 12/07/25 20:59 Last Admin: 11/08/25 09:46 Dose: 20 mg Ferrous Sulfate (Ferrous Sulfate 325 Mg Tab) 325 mg PO DAILY [facility] Stop: 12/08/25 08:59 Last Admin: 11/08/25 09:47 Dose: 325 mg Folic Acid (Folic Acid 1 Mg Tab) 1 mg PO DAILY [facility] Stop: 12/08/25 08:59 Last Admin: 11/08/25 09:47 Dose: 1 mg Furosemide (Furosemide 40 Mg/4 Ml Vial) 40 mg IV DAILY [facility] Stop: 12/08/25 08:59 Last Admin: 11/08/25 09:51 Dose: 40 mg Glucagon (Glucagon For Inj 1 Mg Vial) 1 mg SQ UD PRN; Protocol PRN Reason: Hypoglycemia Protocol Stop: 12/07/25 15:25 Glucose (Glucose 40% Gel 15 Gm Tube) 15 - 30 gm PO UD PRN; Protocol PRN Reason: Hypoglycemia Protocol Stop: 12/07/25 15:25 Glucose (Glucose 10 Tab/Tube) 4 - 8 tab PO UD PRN; Protocol PRN Reason: Hypoglycemia Protocol Stop: 12/07/25 15:25 Dextrose (D5w) 1,000 mls @ 40 mls/hr IV .Q24H [facility]IAN Stop: 11/11/25 03:14 Last Admin: 11/08/25 04:15 Dose: 40 mls/hr Insulin Aspart (Insulin Aspart Per Unit Charge) 0 units SC ACHS [facility]ILLIAN Stop: 12/07/25 16:29 Last Admin: 11/08/25 09:02 Dose: Not Given Miscellaneous (Carbohydrates For Hypoglycemia ) 15 - 30 gm PO UD PRN PRN Reason: Hypoglycemia Protocol Stop: 12/07/25 15:25 Last Admin: 11/08/25 02:00 Dose: 30 gm Miscellaneous Information (Pharmacy Glycemic Mgmt Consult) 1 each N/A UD PRN; Protocol PRN Reason: Consult Stop: 12/07/25 16:15 Montelukast Sodium (Montelukast Sodium 10 Mg Tablet) 10 mg PO HS GILLIAN Stop: 12/07/25 20:59 Last Admin: 11/07/25 22:00 Dose: 10 mg Ondansetron HCl (Ondansetron Inj 2 Mg/Ml 2 Ml Vial) 4 mg IV Q6H PRN PRN Reason: Nausea Stop: 12/07/25 16:31 Pantoprazole Sodium (Pantoprazole 40 Mg Tab) 40 mg PO DAILY GILLIAN Stop: 12/08/25 08:59 Last Admin: 11/08/25 09:47 Dose: 40 mg Polyethylene Glycol (Polyethylene (Miralax) 17 Gm Pack) 17 gm PO DAILY PRN PRN Reason: Constipation Stop: 12/07/25 16:31 Umeclidinium [place] (Umeclidinium [place] 62.5mcg/Blister 7 Puffs/Inhaler) 1 puffs INH DAILY GILLIAN Stop: 12/08/25 08:59 Last Admin: 11/08/25 09:47 Dose: 1 puffs
[2025-11-08] MEDS: ASPIRIN 81 MG CHEW PO SCH (09:45)
[2025-11-08] MEDS: CETIRIZINE HCL 10 MG TABLET PO SCH (09:46)
[2025-11-08] MEDS: ASCORBIC ACID 500 MG TAB PO SCH (09:46)
[2025-11-08] MEDS: ATORVASTATIN 40 MG TAB PO SCH (09:46)
[2025-11-08] MEDS: UMECLIDINIUM BROMIDE 62.5MCG/BLISTER 7 PUFFS/INHALER INH SCH (09:47)
[2025-11-08] MEDS: FOLIC ACID 1 MG TAB PO SCH (09:47)
[2025-11-08] MEDS: FERROUS SULFATE 325 MG TAB PO SCH (09:47)
[2025-11-08] MEDS: FUROSEMIDE 40 MG/4 ML VIAL IV SCH (09:51)
--- NOTE | 2025-11-08 10:44 | Pharmacy Report ---
Pharmacy Glycemic Short Note 2 - Date of Service November 08, 2025 - Glycemic Short BSG Results (Last 24 hours): 11/07/25 11/07/25 11/07/25 12:50 16:09 16:54 Glucose 119 H POC Glucose 52 L* 78 11/07/25 11/07/25 11/07/25 20:33 21:06 21:25 Glucose POC Glucose 42 L* 66 L* 72 11/08/25 11/08/25 11/08/25 01:58 02:28 05:22 Glucose 87 POC Glucose 60 L* 70 11/08/25 08:10 Glucose POC Glucose 114 H OUTPATIENT ANTIDIABETIC REGIMEN: * Tresiba 18 units SQ Q AM * Novolog 4 units SQ TID with meals * Jardiance 25mg PO daily * Ozempic 0.5mg SQ weekly HbA1c: 6.7% on 11/08/25 ASSESSMENT: * Ole is a 70 year old male who was presented yesterday with increased shortness of breath and lower extremity swelling x 4 weeks. Pharmacy was consulted for glycemic management while he is admitted. * Patient was hypoglycemic on admit (BSG 52 mg/dL) and dropped to 42mg/dL at HS. Unclear what/how much insulin was used prior to arrival. A conservative insulin regimen was started at that time utilizing only the correction factor (no carb coverage). * Fasting BSG was still below goal this morning. Will not start him on basal insulin at this time and will continue bolus insulin regimen without change. PLAN FOR INPATIENT GLYCEMIC CONTROL: * Hold outpatient diabetes medications * Basal insulin * Hold for now * Bolus insulin * NovoLog per scale ACHS or Q6hrs while NPO * Goal Range: Low 140 mg/dL - High 180 mg/dL * Correction Factor: 35 mg/dL/unit * Nutritional / Prandial insulin per carb ratio: NONE
[2025-11-08] MEDS: ALBUT/IPRATROP 3MG/0.5MG NEB 3 ML VIAL NEB SCH (11:59)
--- NOTE | 2025-11-08 12:02 | Cardiology Consultation ---
Date of Consultation November 08, 2025 Assessment & Plan (1) Acute on chronic diastolic heart failure with preserved ejection fraction: (2) Acute on chronic hypoxic respiratory failure: (3) Anemia: (4) CKD (chronic kidney disease), stage III: Plan Patient is a 70 year old male admitted to [facility] with symptoms of worsening SOB, edema, weight gain consistent with acute on chronic HFpEF and acute on chronic respiratory failure with hypoxia. Long history of underlying COPD/tobacco abuse and HFpEF. He does not take diuretics on a regular basis. Echo last week with preserved LVEF, no significant valvular disease Acute HFpEF -He received several doses of IV lasix since admission with good urine outputs. -Volume status improving -Repeat furosemide 40 mg IV x1 dose today -Monitor I+O's -Daily weight with standing scale -Monitor renal function - creatinine at 2.0 today (increase from 1.8 yesterday). Per review of outpatient labs, creatinine ranges 1.8-2.2 over the last few years. PAF - becoming more persistent -Medtronic pacemaker with recent interrogation showing 75% burden of afib. Rates controlled -Continue carvedilol -No longer on anticoagulation due to presence of watchman device -continue ASA COPD -Likely underlying exacerbation contributing to his dyspnea/hypoxia as well -continue nebs/inhalers Case discussed with Dr. Gillis I spent a total of 60 minutes on the date of service in preparation, delivery, and documentation of the care provided to this patient, excluding any time spent in the performance of separately billed services. Rose Ruvalcaba PA-C Department of Cardiology, [facility] This chart was completed in part utilizing Speech Voice Recognition Software. Grammatical errors, random word insertions, pronoun errors, and incomplete sentences are an occasional consequence of this system due to software limitations, ambient noise, and hardware issues. Any formal questions or concerns about the content, text, or information contained within the body of this dictation should be directly addressed to the provider for clarification. History of Present Illness Reason for Consultation: SOB; Acute HFpEF Requesting Physician: Juan Pablo Hospitalist Attending Physician: Dr. Gillis History of Present Illness Patient is a complex 70 year old male who admitted to [facility] with complaints of worsening SOB, weight gain, LE edema. Follows with [facility] in [place]. Last visit in Dec [address] Bar Patient admitted to [facility] with worsening SOB and volume overload. Chest xray with evidence of small b/l pleural effusions Started on IV furosemide in the ER He reports weight gain of approx 6-10 lbs over the last few months. No chest pain. Since admission, patient reports frequent urination/outputs. SOB improving. Edema remains persistent. Hbg 8.2 on admission. No evidence of acute GI bleed. Chronic anemia noted. He is off AC and now plavix since watchman device implanted. He completed the 6 months of plavix. Now on ASA only. History includes: Paroxysmal Afib (CHADS2-Vasc score 5) - on Eliquis Hx of complete heart block s/p dual chamber pacemaker (Medtronic on 01/19/2019) Hypertensive heart disease with HF mildly reduced LVEF and CKD stage 3a -LVEF 45-49% by echo 01/13/2023 -LVEF 50-54% by echo 12/06/2024 COPD DM type 2 (A1c 8.7 on 10/27/2024) - non-insulin injectables Hx of stroke Dyslipidemia Lung nodule (12/2022) -surveillance Hx of tobacco use Negative nuclear stress test in 2022 Fall in Nov 2023 with subdural hematoma requiring craniotomy S/P Watchman device implanted February 2025 CKD with baseline creatinine 1.8-2.2 per review of outpatient notes Allergies Allergy/AdvReac Type Severity Reaction Status Date / Time Penicillins Allergy Unknown UNKNOWN Verified 07/02/15 00:43 Home Medications Medication Instructions Recorded Confirmed Type amlodipine 10 mg tablet 10 mg PO DAILY 11/07/25 11/07/25 History ascorbic acid (vitamin C) 500 mg 500 mg PO DAILY 11/07/25 11/07/25 History chewable tablet (Vitamin C) aspirin 81 mg chewable tablet 81 mg PO DAILY 11/07/25 11/07/25 History atorvastatin 40 mg tablet 40 mg PO DAILY 11/07/25 11/07/25 History carvedilol 25 mg tablet 25 mg PO BID 11/07/25 11/07/25 History cetirizine 10 mg tablet 10 mg PO DAILY 11/07/25 11/07/25 History clopidogrel 75 mg tablet 75 mg PO DAILY 11/07/25 11/07/25 History empagliflozin 25 mg tablet 25 mg PO DAILY 11/07/25 11/07/25 History (Jardiance) famotidine 20 mg tablet 20 mg PO BID 11/07/25 11/07/25 History ferrous sulfate 325 mg (65 mg 325 mg PO TID 11/07/25 11/07/25 History iron) tablet folic acid 1 mg tablet 1 mg PO DAILY 11/07/25 11/07/25 History furosemide 20 mg tablet 20 mg PO DAILY Edema 11/07/25 11/07/25 History insulin degludec 100 unit/mL (3 18 unit subcut DAILY 11/07/25 11/07/25 History mL) subcutaneous pen (Tresiba FlexTouch U-100 insulin) montelukast 10 mg tablet 10 mg PO HS 11/07/25 11/07/25 History omeprazole 20 mg capsule,delayed 20 mg PO DAILY 11/07/25 11/07/25 History release semaglutide 0.25 mg or 0.5 mg (2 0.5 mg subcut WK 11/07/25 11/07/25 History mg/3 mL) subcutaneous pen injector (Ozempic) tiotropium bromide 2.5 2 inh inhalation DAILY 11/07/25 11/07/25 History mcg/actuation mist for inhalation (Spiriva Respimat) Patient History Medical History CKD (chronic kidney disease), stage III History of subdural hematoma History of CVA (cerebrovascular accident) Combined systolic and diastolic congestive heart failure Paroxysmal atrial fibrillation DM (diabetes mellitus), type 2 Surgical History Pacemaker 2019 S/P small bowel resection [place] [facility] [place] Presence of Watchman left atrial appendage closure device Perc closure transcath left atrial appendage w/endocardial implant (Bilateral) by Dr. Meeks 03/02/25 Incisional hernia s/p repair 04/11 at [facility] [place] S/P cardiac pacemaker procedure History of craniotomy Social History Smoking Status: Never smoker Hx Alcohol Use: No Hx Substance Use: No Preferred Language: French Communication Ability: Effective Biochemistry Technologist Required: No Beliefs That Will Affect Care: None Current Living Situation: Alone Current Living Situation Comment: Lives Alone Other Information That Helps Us Care for You: No Feels Safe at Home: Yes Safety Concerns: Feels Safe At This Time Assistive Devices: None Assistive Devices Comment: oxygen 2L at baseline Review of Systems Review of Systems: All systems reviewed & are unremarkable except as noted in HPI & below Physical Exam Constitutional: WD/WN, vitals as above average body habitus; no acute distress Neck: trachea midline, no thyromegaly Respiratory: no labored breathing Auscultation: + diminished lung sounds and + crackles Cardiovascular: Rate/Rhythm: regular rate and regular rhythm Heart Sounds: + murmur (II/ systolic murmur LSB) Vessels: + JVD Extremities: + edema (2+ edema to thighs) Gastrointestinal (Abdomen): normal bowel sounds, soft, nontender, no hepatosplenomegaly Neurologic: PERRL, EOMI, accommodation nl, no face palsy, no dysarthria Results & Data Vital Signs (Past 12 Hours) Vital Signs Temp Pulse Resp BP Pulse Ox O2 Del Method O2 Flow Rate 11/08/25 10:49 36.5 C 61 18 121/69 91 Nasal Cannula 3 11/08/25 10:30 Nasal Cannula 3 11/08/25 07:00 36.5 C 63 18 126/65 97 Nasal Cannula 3 11/08/25 02:38 37.4 C 88 20 122/78 96 Room Air Laboratory Results Cardiac Enzymes 11/07/25 11/07/25 11/07/25 Range/Units 12:50 14:57 19:24 AST 14 (13-39) U/L Troponin I High Sens 34.1 H 39.8 H 33.2 H (0-20) pg/ml B-Natriuretic Peptide 218 H (0-100) pg/ml Coagulation 11/07/25 Range/Units 12:50 B-Natriuretic Peptide 218 H (0-100) pg/ml CBC 11/07/25 11/08/25 Range/Units 12:50 05:22 WBC 7.29 7.11 (4.8-10.8) K/ul RBC 2.58 L 2.72 L (4.70-6.10) M/uL Hgb 8.2 L 8.5 L (14.0-18.0) g/dL Hct 26.5 L 28.2 L (42.0-52.0) % Plt Count 220 225 (130-400) K/uL Neut # (Auto) 5.79 (1.40-6.50) K/uL Lymph # (Auto) 0.64 L (1.20-3.40) K/uL [place] # (Auto) 0.60 H (0.11-0.59) K/uL Eos # (Auto) 0.19 (0.00-0.50) K/uL Baso # (Auto) 0.04 (0.00-0.20) K/uL Comprehensive Metabolic Panel 11/07/25 11/08/25 Range/Units 12:50 05:22 Sodium 147 H 145 (136-145) mmol/L Potassium 4.9 5.0 (3.5-5.1) mmol/L Chloride 112 H 108 H (98-107) mmol/L Carbon Dioxide 32 32 (21-32) mmol/L BUN 31 H 34 H (6-23) mg/dl Creatinine 1.88 H 2.02 H (0.6-1.4) mg/dl Glucose 119 H 87 (70-99(Fasting)) mg/dl Calcium 8.8 9.1 (8.6-10.3) mg/dl AST 14 (13-39) U/L ALT 10 (7-52) U/L Alkaline Phosphatase 92 (34-104) U/L Total Protein 5.8 L (6.0-8.3) gm/dl Albumin 3.5 (3.4-5.0) gm/dl Intake and Output 11/07/25 11/08/25 11/08/25 22:59 06:59 14:59 Output Total 715 / 715 300 / 300 Balance -715 / -715 -300 / -300 Output: Urine 715 / 715 300 / 300 Other: # Unmeasured Voids 1 Weight 111.8 kg 111 kg Weight Measurement Method Built in [facility] Diagnostic Findings Telemetry reviewed: likely afib with chronic ventricular paced rhythm. Rates controlled in the 60's EKG reviewed: Ventricular paced at 62 bmp no acute changes Chest X-Ray 11/07/25 12:55 SINGLE VIEW CHEST CLINICAL HISTORY: Dyspnea FINDINGS: An AP, portable, semierect chest radiograph is compared to chest x-ray and chest CT dated 07/02/2015. A 2-lead cardiac pacemaker is in place. Leads project over the right atrial appendage and right ventricle. The heart is enlarged and no definite atherosclerotic calcification of the thoracic aorta. There is pulmonary vascular congestion with interstitial edema. Small pleural effusions are suspected with bibasilar consolidation. No pneumothorax is seen. The skeletal structures are osteopenic. The bony thorax is grossly intact. Arthritic change is seen in the shoulders. IMPRESSION: 1. Cardiomegaly and cardiac pacemaker with evidence of congestive failure and pulmonary edema. 2. Small pleural effusions with dependent consolidation. ACT 112: Negative or not required by law. Electronically signed by: Jeramy Orona M.D. 11/07/2025 1:12 PM Prior outside data reviewed: Echo reviewed from 10/26/25: Normal LVEF at 50-54% Septal motion is abnormal consistent wiht RV pacemaker LA is moderately enlarged aortic valve is mildly calcified without stenosis moderate MAC LumiFoldtronic device interrogation reviewed dated Aug 2025: Appropriate funciton and battery longevity of 4.4 years 9% atrial paced, 93 ventricular paced; 75% burden of afib. (controlled rates) Medications Administered Current Inpatient Medications Acetaminophen (Acetaminophen 325 Mg Tab) 650 mg PO Q4H PRN PRN Reason: Pain or Fever Stop: 12/07/25 16:31 Albuterol (Albut/Ipratrop 3mg/0.5mg Neb 3 Ml Vial) 3 ml NEB Q6R COUNT INCLUDES THE [facility]; Protocol Stop: 12/08/25 12:59 Last Admin: 11/08/25 11:59 Dose: 3 ml Amlodipine Besylate (Amlodipine Besylate 5 Mg Tab) 10 mg PO DAILY COUNT INCLUDES THE [facility] Stop: 12/08/25 08:59 Last Admin: 11/08/25 09:46 Dose: 10 mg Ascorbic Acid (Ascorbic Acid 500 Mg Tab) 500 mg PO DAILY COUNT INCLUDES THE [facility] Stop: 12/08/25 08:59 Last Admin: 11/08/25 09:46 Dose: 500 mg Aspirin (Aspirin 81 Mg Chew) 81 mg PO DAILY COUNT INCLUDES THE [facility] Stop: 12/08/25 08:59 Last Admin: 11/08/25 09:45 Dose: 81 mg Atorvastatin Calcium (Atorvastatin 40 Mg Tab) 40 mg PO DAILY COUNT INCLUDES THE [facility] Stop: 12/08/25 08:59 Last Admin: 11/08/25 09:46 Dose: 40 mg Carvedilol (Carvedilol 25 Mg Tab) 25 mg PO BID COUNT INCLUDES THE [facility] Stop: 12/07/25 20:59 Last Admin: 11/08/25 09:46 Dose: 25 mg Cetirizine HCl (Cetirizine Hcl 10 Mg Tablet) 10 mg PO DAILY GILLIAN Stop: 12/08/25 08:59 Last Admin: 11/08/25 09:46 Dose: 10 mg Dextrose (Dextrose 50% 50 Ml Syringe) 25 - 50 ml IV UD PRN; Protocol PRN Reason: Hypoglycemia Protocol Stop: 12/07/25 15:25 Empagliflozin (Empagliflozin 25 Mg Tab) 25 mg PO DAILY GILLIAN Stop: 12/08/25 08:59 Famotidine (Famotidine 20 Mg Tab) 20 mg PO BID GILLIAN Stop: 12/07/25 20:59 Last Admin: 11/08/25 09:46 Dose: 20 mg Ferrous Sulfate (Ferrous Sulfate 325 Mg Tab) 325 mg PO DAILY GILLIAN Stop: 12/08/25 08:59 Last Admin: 11/08/25 09:47 Dose: 325 mg Folic Acid (Folic Acid 1 Mg Tab) 1 mg PO DAILY GILLIAN Stop: 12/08/25 08:59 Last Admin: 11/08/25 09:47 Dose: 1 mg Furosemide (Furosemide 40 Mg/4 Ml Vial) 40 mg IV DAILY GILLIAN Stop: 12/08/25 08:59 Last Admin: 11/08/25 09:51 Dose: 40 mg Glucagon (Glucagon For Inj 1 Mg Vial) 1 mg SQ UD PRN; Protocol PRN Reason: Hypoglycemia Protocol Stop: 12/07/25 15:25 Glucose (Glucose 40% Gel 15 Gm Tube) 15 - 30 gm PO UD PRN; Protocol PRN Reason: Hypoglycemia Protocol Stop: 12/07/25 15:25 Glucose (Glucose 10 Tab/Tube) 4 - 8 tab PO UD PRN; Protocol PRN Reason: Hypoglycemia Protocol Stop: 12/07/25 15:25 Dextrose (D5w) 1,000 mls @ 40 mls/hr IV .Q24H COUNT INCLUDES THE [facility] Stop: 11/11/25 03:14 Last Admin: 11/08/25 04:15 Dose: 40 mls/hr Insulin Aspart (Insulin Aspart Per Unit Charge) 0 units SC ACHS COUNT INCLUDES THE [facility] Stop: 12/07/25 16:29 Last Admin: 11/08/25 09:02 Dose: Not Given Miscellaneous (Carbohydrates For Hypoglycemia ) 15 - 30 gm PO UD PRN PRN Reason: Hypoglycemia Protocol Stop: 12/07/25 15:25 Last Admin: 11/08/25 02:00 Dose: 30 gm Miscellaneous Information (Pharmacy Glycemic Mgmt Consult) 1 each N/A UD PRN; Protocol PRN Reason: Consult Stop: 12/07/25 16:15 Montelukast Sodium (Montelukast Sodium 10 Mg Tablet) 10 mg PO HS GILLIAN Stop: 12/07/25 20:59 Last Admin: 11/07/25 22:00 Dose: 10 mg Ondansetron HCl (Ondansetron Inj 2 Mg/Ml 2 Ml Vial) 4 mg IV Q6H PRN PRN Reason: Nausea Stop: 12/07/25 16:31 Pantoprazole Sodium (Pantoprazole 40 Mg Tab) 40 mg PO DAILY GILLIAN Stop: 12/08/25 08:59 Last Admin: 11/08/25 09:47 Dose: 40 mg Polyethylene Glycol (Polyethylene (Miralax) 17 Gm Pack) 17 gm PO DAILY PRN PRN Reason: Constipation Stop: 12/07/25 16:31 Umeclidinium Sugar Tree (Umeclidinium Sugar [place] 62.5mcg/Blister 7 Puffs/Inhaler) 1 puffs INH DAILY COUNT INCLUDES THE [facility] Stop: 12/08/25 08:59 Last Admin: 11/08/25 09:47 Dose: 1 puffs PG Care Time/CCT Total # of Minutes Spent Total Time Spent with Patient: Total time spent is greater than 50% in coordination of care (as documented) at patient's floor/unit and/or counseling patient: 60 minutes Coding Level of Care Code 79255 INT INP/OBS CARE 3/75MIN Diagnoses Acute on chronic diastolic heart failure with preserved ejection fraction I50.33 Acute on chronic hypoxic respiratory failure J96.21 Anemia D64.9 CKD (chronic kidney disease), stage III N18.30
--- NOTE | 2025-11-08 13:16 | Communication Note ---
Date of Service: November 08, 2025 Cardiology consultation addendum Patient was seen and personally examined. Inpatient and prior outpatient records reviewed in detail. Care and management discussed with advanced provider as above, personally endorsed 70-year-old male presents with mixed hypoxic respiratory failure. Longstanding underlying chronic obstructive lung disease and prior hospitalization for pneumonia in July 2025. Findings today consistent with acute on chronic heart failure with minimally reduced ejection fraction EF 50% superimposed on chronic lung disease. Patient previously on diuretic but discontinued in April 2025 due to renal insufficiency on laboratory testing Plan as outlined above. Physical examination consistent with volume overload in addition to underlying lung disease chest x-ray with mild pulmonary edema will continue IV furosemide Daily weights follow renal function. Oxygen supplementation. Cardiology will continue to follow
[2025-11-08] MEDS: FUROSEMIDE 40 MG/4 ML VIAL IV ONE (17:34)
--- NOTE | 2025-11-08 18:45 | Communication Note ---
Date of Service: November 08, 2025 Asked to evaluate the patient as he has been having hallucinations. Inquired about any symptoms and the patient mentioned that he is not having any symptoms and feeling better He mentioned no headache, no visual disturbances, no numbness tingling involving the extremities and no nausea and/or vomiting He has been feeling much better since admission and denies any significant symptoms. Ask about if he has been seeing anything that is not in the room, he mention nothing of that sort. Was advised to report any unusual symptoms to the nurse. Will Observe and continue with current management. DR Mary Rojas
--- NOTE | 2025-11-08 22:44 | Electrocardiogram Report ---
Test Reason : Blood Pressure : */* mmHG Vent. Rate : 62 BPM Atrial Rate : 52 BPM P-R Int : * ms QRS Dur : 182 ms QT Int : 498 ms P-R-T Axes : * -52 114 degrees QTcB Int : 505 ms Ventricular-paced rhythm Abnormal ECG When compared with ECG of 01-Jul-2015 23:52, Electronic ventricular pacemaker has replaced Sinus rhythm Confirmed by Magdiel Starks ([id number]) on 11/08/2025 10:43:40 PM Referred By: REFERRED SELF Confirmed By: Magdiel Starks
[2025-11-09 05:56] LABS: Hematocrit (blood only) 24.0 % (42.0-52.0); Hemoglobin 7.5 g/dL (14.0-18.0); Mean Corpuscular Hemoglobin 31.8 pg (25.0-34.0); Mean Corpuscular Volume 101.7 fL (80.0-100.0); Platelet Count 202 K/uL (130-400); RDW Standard Deviation 56.8 fL (36.4-46.3); Red Blood Count 2.36 M/uL (4.70-6.10); White Blood Count 6.59 K/ul (4.8-10.8)
[2025-11-09 06:15] LABS: Anion Gap 6.0 (3-11); Blood Urea Nitrogen 40.0 mg/dl (6-23); Calcium 8.5 mg/dl (8.6-10.3); Carbon Dioxide 31.0 mmol/L (21-32); Chloride 107.0 mmol/L (98-107); Creatinine Clr Calc Pharmacy 33.8 ml/min; Glucose 138.0 mg/dl (70-99(Fasting)); Magnesium 1.9 mg/dl (1.7-2.4); Potassium 5.0 mmol/L (3.5-5.1); Sodium 144.0 mmol/L (136-145)
--- NOTE | 2025-11-09 06:37 | Communication Note ---
Date of Service: November 09, 2025 A.m. hemoglobin noted to be 7.5 from 8.5 yesterday as per RN. No overt bleed. AP Progressive anemia Recheck H&H after 4 hours Defer decision for blood transfusion to a.m. provider.
[2025-11-09 07:58] LABS: Hematocrit (blood only) 24.5 % (42.0-52.0); Hemoglobin 7.8 g/dL (14.0-18.0)
[2025-11-09] MEDS: EMPAGLIFLOZIN 25 MG TAB PO SCH (08:54)
[2025-11-09] MEDS: LANTUS PER UNIT CHARGE SQ SCH (08:57)
[2025-11-09] MEDS: IRON SUCROSE 300 MG in SODIUM CHLORIDE 0.9% 250 ML IV ONE (10:47)
--- NOTE | 2025-11-09 11:55 | Cardiology Progress Note ---
Date of Service November 09, 2025 Assessment & Plan (1) Acute on chronic diastolic heart failure with preserved ejection fraction: (2) Acute on chronic hypoxic respiratory failure: (3) Anemia: (4) CKD (chronic kidney disease), stage III: Plan Patient is a 70 year old male admitted to [facility] with symptoms of worsening SOB, edema, weight gain consistent with acute on chronic HFpEF and acute on chronic respiratory failure with hypoxia. Long history of underlying COPD/tobacco abuse and HFpEF. He does not take diuretics on a regular basis. Echo last week with preserved LVEF, no significant valvular disease Acute HFpEF -He received several doses of IV lasix since admission with good urine outputs. -Volume status improving -Repeat furosemide 40 mg IV x1 dose today -Monitor I+O's -Daily weight with standing scale -Monitor renal function - creatinine at 2.0 today (increase from 1.8 yesterday). Per review of outpatient labs, creatinine ranges 1.8-2.2 over the last few years. PAF - becoming more persistent -Medtronic pacemaker with recent interrogation showing 75% burden of afib. Rates controlled -Continue carvedilol -No longer on anticoagulation due to presence of watchman device -continue ASA COPD -Likely underlying exacerbation contributing to his dyspnea/hypoxia as well -continue nebs/inhalers 11/09/2025 Complex 70-year-old male admitted with mixed respiratory failure with decompensated congestive heart failure superimposed on chronic obstructive lung disease, anemia, chronic renal insufficiency Minimal response to IV diuretics with worsening creatinine. Recommendations: Reduce amlodipine to 5 mg/day to aid in lower extremity edema Would hold Jardiance given declining renal function Suspect requires higher dosing of diuretic but would request nephrology aid in management Continue oxygen supplementation Treat anemia as initiated Admission and Anticipated Discharge Date Admission Date: November 07, 2025 Subjective Patient seen and examined, chart, medications, telemetry reviewed Slight improvement lower extremity edema per patient. No chest pains or discomfort no dizziness or lightheadedness. With diuresis renal function has declined. Hemoglobin 7.8 this morning Blood pressure controlled Review of Systems Review of Systems: All systems reviewed & are unremarkable except as noted in Subjective Physical Exam Constitutional: WD/WN, vitals as above + obese; no acute distress Neck: trachea midline, no thyromegaly Respiratory: no labored breathing Auscultation: + diminished lung sounds and + crackles Cardiovascular: Rate/Rhythm: regular rate and regular rhythm Heart Sounds: + murmur (II/ systolic murmur LSB) Extremities: + edema (2+ edema to thighs) Gastrointestinal (Abdomen): normal bowel sounds, soft, nontender, no hepatosplenomegaly Neurologic: PERRL, EOMI, accommodation nl, no face palsy, no dysarthria Results & Data Vital Signs (Past 12 Hours) Vital Signs Temp Pulse Resp BP Pulse Ox O2 Del Method O2 Flow Rate 11/09/25 08:50 Nasal Cannula 3 11/09/25 07:30 37 C 78 18 122/89 95 Room Air 11/09/25 07:03 78 20 92 Nasal Cannula 4 11/09/25 02:38 36.3 C L 60 20 119/68 90 Nasal Cannula 3 11/09/25 00:11 63 18 93 Nasal Cannula 3 Laboratory Results Laboratory Results - last 24 hr 11/08/25 11/08/25 11/08/25 12:14 17:04 20:29 WBC RBC Hgb Hct MCV MCH MCHC RDW Std Deviation RDW Coeff of [place] Plt Count MPV Sodium Potassium Chloride Carbon Dioxide Anion Gap BUN Creatinine Est Cr Clr Drug Dosing eGFR BUN/Creatinine Ratio Glucose POC Glucose 126 H 201 H 201 H Calcium Magnesium Blood Type Blood Type Recheck Antibody Screen 11/09/25 11/09/25 11/09/25 05:17 07:42 08:00 WBC 6.59 RBC 2.36 L Hgb 7.5 L 7.8 L Hct 24.0 L 24.5 L MCV 101.7 H MCH 31.8 MCHC 31.3 L RDW Std Deviation 56.8 H RDW Coeff of [place] 15.2 H Plt Count 202 MPV 10.6 Sodium 144 Potassium 5.0 Chloride 107 Carbon Dioxide 31 Anion Gap 6 BUN 40 H Creatinine 2.54 H D Est Cr Clr Drug Dosing 33.8 eGFR 26.45 BUN/Creatinine Ratio 15.7 Glucose 138 H POC Glucose 143 H Calcium 8.5 L Magnesium 1.9 Blood Type A Positive Blood Type Recheck A Positive Antibody Screen NEGATIVE PG Care Time/CCT Total # of Minutes Spent Total Time Spent with Patient: Total time spent is greater than 50% in coordination of care (as documented) at patient's floor/unit and/or counseling patient: Coding Level of Care Code 00020 SUB INP/OBS CARE 3/50MIN Diagnoses Acute on chronic diastolic heart failure with preserved ejection fraction I50.33 Acute on chronic hypoxic respiratory failure J96.21 Anemia D64.9 CKD (chronic kidney disease), stage III N18.30
--- NOTE | 2025-11-09 12:31 | Pharmacy Report ---
Pharmacy Glycemic Short Note 2 - Date of Service November 09, 2025 - Glycemic Short BSG Results (Last 24 hours): 11/08/25 11/08/25 11/09/25 17:04 20:29 05:17 Glucose 138 H POC Glucose 201 H 201 H 11/09/25 11/09/25 08:00 12:01 Glucose POC Glucose 143 H 138 H OUTPATIENT ANTIDIABETIC REGIMEN: * Tresiba 18 units SQ Q AM * Novolog 4 units SQ TID with meals * Jardiance 25mg PO daily * Ozempic 0.5mg SQ weekly HbA1c: 6.7% on 11/08/25 ASSESSMENT: 11/09/25: * Blood sugars elevated yesterday with correction factor only, will add carb ratio today * Fasting blood sugar of 143 mg/dL this morning - will restart low-dose basal insulin today * Worsening MARIAA (SCr 2.54 mg/dL today) - empagliflozin given this AM, but now on hold 11/08/25: * Ole is a 70 year old male who was presented yesterday with increased shortness of breath and lower extremity swelling x 4 weeks. Pharmacy was consulted for glycemic management while he is admitted. * Patient was hypoglycemic on admit (BSG 52 mg/dL) and dropped to 42mg/dL at HS. Unclear what/how much insulin was used prior to arrival. A conservative insulin regimen was started at that time utilizing only the correction factor (no carb coverage). * Fasting BSG was still below goal this morning. Will not start him on basal insulin at this time and will continue bolus insulin regimen without change. PLAN FOR INPATIENT GLYCEMIC CONTROL: * Empagliflozin 25 mg PO daily (on hold currently due to MARIAA) * Basal insulin * Lantus 5 units SC daily * Bolus insulin * NovoLog per scale ACHS or Q6hrs while NPO * Goal Range: Low 120 mg/dL - High 180 mg/dL * Correction Factor: 45 mg/dL/unit * Nutritional / Prandial insulin per carb ratio: 15 g/unit
--- NOTE | 2025-11-09 12:52 | Hospitalist Progress Note ---
Date of Service November 09, 2025 Assessment & Plan (1) Acute on chronic hypoxic respiratory failure: (2) Acute on chronic diastolic heart failure with preserved ejection fraction: (3) COPD (chronic obstructive pulmonary disease): (4) Paroxysmal atrial fibrillation: (5) CKD (chronic kidney disease), stage III: (6) Anemia: (7) DM (diabetes mellitus), type 2: Plan This is a 70yo M with PMH of combined systolic and diastolic HF, type 2 diabetes, hypertension, COPD, heart block s/p pacemaker placement, paroxysmal atrial fibrillation, history of CVA, CKD 3, chronic hypoxic respiratory failure on 2L NC and other medical problems listed below who presents from home with i ncreased shortness of breath and lower extremity swelling x 4 weeks. Acute on chronic respiratory failure Acute on chronic HFpEF Discharged from hospitalization at [place] for COPD exacerbation secondary to PNA in Jul 2025 with new 2L O2 requirement Patient presenting with worsening SOB, edema, increased O2 requirement CXR reviewed - cardiomegaly and cardiac pacemaker with evidence of congestive failure and pulmonary edema TTE on 10/26/25 with EF 50-54%, septal motion is abnormal consistent with right ventricular pacemaker, left atrium is moderately enlarged -> similar compared to prior in Nov 2023 BNP 218 Currently on 3L O2-> try to wean to baseline of 2L as able Initially on IV lasix 40mg daily(prescribed 20mg daily by PCP in Aug for LE edema) Given pts uptrending cr will consult nephro to help assist with diuresis Cardiology decreasing amlodipine to 5mg daily Continue daily weights, I&Os, low salt diet Cardiology following COPD Patient denies fevers and cough (although nursing notes productive cough), no leukocytosis Exacerbation possible but presentation likely due to CHF more than COPD Continue home Spiriva inhaler Add duonebs q6hr due to decreased air entry Follow up with Pulmonology as scheduled in November Paroxysmal A fib History of complete heart block s/p dual chamber pacemaker (2018) Presence of Watchman left atrial appendage closure device Rate controlled No longer on anticoagulation since presence of Watchman left atrial appendage closure device Continue baby aspirin and Coreg Macrocytic anemia Hgb 8-9 since August, was closer to 10 prior to that Started on iron supplementation during hospitalization at [facility] PCP notes possible need for IV iron due to CKD and poor absorption of oral iron B12 and folate WNL Hfb 7.8 today - will infuse IV Venofer today, will consider additional dosing tomorrow MARIAA/CKD [address] Bauman Creatinine at baseline of ~2.0 cr up to 2.58 in setting of diuresis Avoid nephrotoxic agents as able Monitor renal function, will consult nephro Type 2 diabetes A1c 6.7 Hold home agents , jardiance placed on hold given uptrending renal function on 11/09 BSG ACHS and SSI while inpatient Glycemic consult placed due to hypoglycemic episode - appreciate recs for OP regimen DVT Prophylaxis: SCDs Code Status: FULL CODE PCP: Reji Love Disposition: PT/OT recommending rehab at discharge Patient seen in collaboration with Dr. Rojas. Please see addendum. I spent a total of 50 minutes coordinating, documenting and providing care for this patient excluding time spent in the performance of separately billed services or time spent by another provider/QHP. Admission and Anticipated Discharge Date Admission Date: November 07, 2025 Supervising Physician Co-Signing Physician Notes Attending addendum: The patient was seen and examined in telemetry unit He was admitted with increasing shortness of breath and weakness and also leg swelling Noted to have combination of CHF on top of COPD and paroxysmal atrial fibrillation Has been feeling little better since admission Upon examination Sitting on a recliner without any acute distress Remains hemodynamically stable and requiring 3 L to maintain saturation Chestdecreased breath sounds bilaterally the lower area mainly with crackles at the bases. No wheezing HeartS1-S2 regular Abdomenbenign Extremitiesbilateral swelling of the legs with 1+ edema His admission labs, EKG and imaging studies reviewed Has a acute on chronic hypoxic respiratory failure complicated by acute on chronic diastolic heart failure , atrial fibrillation and also COPD Does not have any COPD exacerbationWill continue with nebulized bronchodilator and he is usual inhalers Has been getting intravenous Lasix for fluid overload/acute on chronic diastolic CHF He usually takes 2 L of oxygen at home and now requiring 3 which is expected to improve Agree with assessment and plan as outlined above by Batsheva SPEAR and take the full responsibility of care in the hospital Total time taken to see the patient, examining him, reviewing medications and labs and planning care was [address] Mary Rojas 11/09/2025 The patient was seen and examined in telemetry unit He was noted to be confused by the nursing staff but during examination he seemed quite oriented in time place and person Has weakness but denies any other significant symptoms His examination was unremarkable and stable hemodynamically He was convinced to take intravenous Venofer for iron deficiency anemia He has had physical therapy and recommended rehab therapy but he has been refusing Will coordinate with manager rn case for discharge planning Agree with assessment plan as outlined above by Anabel Nuñez PA-C and take the full responsibility of care in the hospital Total time taken to see the patient, examining him, explaining the results and also plan for care was [address] Mary Diaz Pt seen in room 461-2. He tells me he, "isn't allowed to leave this place." Denies f/c/s, chest pain, sob, n/v. Feels his swelling is similar. He wants to go home. Discussed with nursing who felt he was more confused. Review of Systems Review of Systems: All systems reviewed & are unremarkable except as noted in HPI & below Physical Exam Physical Exam: Gen: Elderly, M, sitting at bedside, NAD, A&O x2, person, place, not time HEENT: Normocephalic, atraumatic, conjunctivae moist, sclerae anicteric, mucous membranes moist. Lung: Clear to Auscultation bilaterally, no wheezes/rales/rhonchi Heart: Regular rate, regular rhythm, no murmurs, rubs, or gallops Abdomen: Soft, NT, ND +BS x 4 Extremities: +2 lower ext edema Skin: Warm, no rash, negative turgor. Results & Data Results & Data Vital Signs (Past 12 Hours) Vital Signs Temp Pulse Resp BP Pulse Ox O2 Del Method O2 Flow Rate 11/09/25 12:00 37 C 61 14 113/68 97 Room Air 11/09/25 08:50 Nasal Cannula 3 11/09/25 07:30 37 C 78 18 122/89 95 Room Air 11/09/25 07:03 78 20 92 Nasal Cannula 4 11/09/25 02:38 36.3 C L 60 20 119/68 90 Nasal Cannula 3 Laboratory Results I have independently reviewed and interpreted patient's cbc, bmp, mag Medications Administered Medication List Albuterol (Albut/Ipratrop 3mg/0.5mg Neb 3 Ml Vial) 3 ml NEB Q6R [facility]; Protocol Stop: 12/08/25 12:59 Last Admin: 11/09/25 07:05 Dose: 3 ml Documented By: Admin: 11/09/25 00:11 Dose: 3 ml Documented By: Admin: 11/08/25 19:43 Dose: 3 ml Documented By: Admin: 11/08/25 11:59 Dose: 3 ml Documented By: MARK Ascorbic Acid (Ascorbic Acid 500 Mg Tab) 500 mg PO DAILY GILLIAN Stop: 12/08/25 08:59 Last Admin: 11/09/25 08:54 Dose: 500 mg Documented By: MARIA R Admin: 11/08/25 09:46 Dose: 500 mg Documented By: FRANTZ Aspirin (Aspirin 81 Mg Chew) 81 mg PO DAILY GILLIAN Stop: 12/08/25 08:59 Last Admin: 11/09/25 09:01 Dose: 81 mg Documented By: MARIA R Admin: 11/08/25 09:45 Dose: 81 mg Documented By: FRANTZ Atorvastatin Calcium (Atorvastatin 40 Mg Tab) 40 mg PO DAILY GILLIAN Stop: 12/08/25 08:59 Last Admin: 11/09/25 08:54 Dose: 40 mg Documented By: MARIA R Admin: 11/08/25 09:46 Dose: 40 mg Documented By: FRANTZ Cetirizine HCl (Cetirizine Hcl 10 Mg Tablet) 10 mg PO DAILY GILLIAN Stop: 12/08/25 08:59 Last Admin: 11/09/25 08:54 Dose: 10 mg Documented By: MARIA R Admin: 11/08/25 09:46 Dose: 10 mg Documented By: FRANTZ Empagliflozin (Empagliflozin 25 Mg Tab) 25 mg PO DAILY GILLIAN Stop: 12/08/25 08:59 Last Admin: 11/09/25 08:54 Dose: 25 mg Documented By: MARIA R Famotidine (Famotidine 20 Mg Tab) 20 mg PO BID GILLIAN Stop: 12/07/25 20:59 Last Admin: 11/09/25 09:01 Dose: 20 mg Documented By: MARIA R Admin: 11/08/25 19:41 Dose: 20 mg Documented By: Admin: 11/08/25 09:46 Dose: 20 mg Documented By: Admin: 11/07/25 22:00 Dose: 20 mg Documented By: MCKENZIE Ferrous Sulfate (Ferrous Sulfate 325 Mg Tab) 325 mg PO DAILY GILLIAN Stop: 12/08/25 08:59 Last Admin: 11/09/25 08:53 Dose: 325 mg Documented By: MARIA R Admin: 11/08/25 09:47 Dose: 325 mg Documented By: FRANTZ Folic Acid (Folic Acid 1 Mg Tab) 1 mg PO DAILY GILLIAN Stop: 12/08/25 08:59 Last Admin: 11/09/25 08:54 Dose: 1 mg Documented By: MARIA R Admin: 11/08/25 09:47 Dose: 1 mg Documented By: FRANTZ Furosemide (Furosemide 40 Mg/4 Ml Vial) 40 mg IV DAILY GILLIAN Stop: 12/08/25 08:59 Last Admin: 11/08/25 09:51 Dose: 40 mg Documented By: FRANTZ Insulin Aspart (Insulin Aspart Per Unit Charge) 0 units SC ACHS GILLIAN Stop: 12/07/25 16:29 Last Admin: 11/09/25 12:29 Dose: 3 units Documented By: MARIA R Co-signed By: EP Admin: 11/09/25 08:56 Dose: 3 units Documented By: MARIA R Co-signed By: EP Admin: 11/08/25 21:21 Dose: 1 units Documented By: CONSTANTINO Co-signed By: AMC Admin: 11/08/25 17:41 Dose: 1 units Documented By: KJL Co-signed By: NM Admin: 11/08/25 13:01 Dose: Not Given Documented By: FRANTZ Co-signed By: DTT Admin: 11/08/25 09:02 Dose: Not Given Documented By: FRANTZ Co-signed By: CA Admin: 11/07/25 21:47 Dose: Not Given Documented By: Admin: 11/07/25 18:11 Dose: 1 units Documented By: JR Co-signed By: dst Insulin Glargine (Lantus Per Unit Charge) 5 units SQ DAILY GILLIAN Stop: 12/09/25 08:59 Last Admin: 11/09/25 08:57 Dose: 5 units Documented By: MARIA R Co-signed By: ASHWIN Miscellaneous (Carbohydrates For Hypoglycemia ) 15 - 30 gm PO UD PRN PRN Reason: Hypoglycemia Protocol Stop: 12/07/25 15:25 Last Admin: 11/08/25 02:00 Dose: 30 gm Documented By: Admin: 11/07/25 21:09 Dose: 24 gm Documented By: Admin: 11/07/25 20:38 Dose: 30 gm Documented By: CAMILAC Montelukast Sodium (Montelukast Sodium 10 Mg Tablet) 10 mg PO HS GILLIAN Stop: 12/07/25 20:59 Last Admin: 11/08/25 19:41 Dose: 10 mg Documented By: Admin: 11/07/25 22:00 Dose: 10 mg Documented By: MCKENZIE Pantoprazole Sodium (Pantoprazole 40 Mg Tab) 40 mg PO DAILY GILLIAN Stop: 12/08/25 08:59 Last Admin: 11/09/25 08:54 Dose: 40 mg Documented By: MARIA R Admin: 11/08/25 09:47 Dose: 40 mg Documented By: FRANTZ Umeclidinium Green[place] (Umeclidinium Green[place] 62.5mcg/Blister 7 Puffs/Inhaler) 1 puffs INH DAILY GILLIAN Stop: 12/08/25 08:59 Last Admin: 11/09/25 09:02 Dose: 1 puffs Documented By: MARIA R Admin: 11/08/25 09:47 Dose: 1 puffs Documented By: FRANTZ Discontinued Medications Amlodipine Besylate (Amlodipine Besylate 5 Mg Tab) 10 mg PO DAILY GILLIAN Stop: 12/08/25 08:59 Last Admin: 11/09/25 08:54 Dose: 10 mg Documented By: MARIA R Admin: 11/08/25 09:46 Dose: 10 mg Documented By: FRANTZ Carvedilol (Carvedilol 25 Mg Tab) 25 mg PO BID GILLIAN Stop: 12/07/25 20:59 Last Admin: 11/09/25 08:53 Dose: 25 mg Documented By: MARIA R Admin: 11/08/25 19:41 Dose: 25 mg Documented By: Admin: 11/08/25 09:46 Dose: 25 mg Documented By: Admin: 11/07/25 22:00 Dose: 25 mg Documented By: MCKENZIE Furosemide (Furosemide 40 Mg/4 Ml Vial) 40 mg IV ONE ONE Stop: 11/07/25 13:36 Last Admin: 11/07/25 15:57 Dose: Not Given Documented By: MARTIN Furosemide (Furosemide 40 Mg/4 Ml Vial) 40 mg IV ONE ONE Stop: 11/07/25 15:55 Last Admin: 11/07/25 16:04 Dose: 40 mg Documented By: MARTIN Furosemide (Furosemide Inj 20 Mg/2 Ml Vial) 20 mg IV ONE ONE Stop: 11/07/25 21:01 Last Admin: 11/07/25 22:00 Dose: 20 mg Documented By: HDC Furosemide (Furosemide 40 Mg/4 Ml Vial) 40 mg IV ONE ONE Stop: 11/08/25 16:28 Last Admin: 11/08/25 17:34 Dose: 40 mg Documented By: CECILIA Dextrose (D5w) 1,000 mls @ 40 mls/hr IV .Q24H GILLIAN Stop: 11/11/25 03:14 Last Infusion: 11/09/25 00:49 Dose: Infused Documented By: Infusion: 11/08/25 17:27 Dose: 0 mls/hr Documented By: Admin: 11/08/25 04:15 Dose: 40 mls/hr Documented By: HDC Iron Sucrose 300 mg/ Sodium (Chloride) 265 mls @ 176.667 mls/hr IV TODAY ONE Stop: 11/09/25 10:44 Last Admin: 11/09/25 10:47 Dose: Not Given Documented By: MARIA R
--- NOTE | 2025-11-09 21:40 | Electrocardiogram Report ---
Test Reason : Blood Pressure : */* mmHG Vent. Rate : 79 BPM Atrial Rate : 80 BPM P-R Int : * ms QRS Dur : 180 ms QT Int : 448 ms P-R-T Axes : * -44 112 degrees QTcB Int : 513 ms Ventricular-paced rhythm Abnormal ECG When compared with ECG of 01-Jul-2015 23:52, Electronic ventricular pacemaker has replaced Sinus rhythm Confirmed by Magdiel Starks ([id number]) on 11/09/2025 9:40:05 PM Referred By: REFERRED SELF Confirmed By: Magdiel Starks
[2025-11-10 08:49] LABS: Hematocrit (blood only) 25.8 % (42.0-52.0); Hemoglobin 8.0 g/dL (14.0-18.0); Immature Granulocytes # (auto) 0.02 K/uL (0.01-0.20); Immature Granulocytes % (auto) 0.3 %; Mean Corpuscular Hemoglobin 31.4 pg (25.0-34.0); Mean Corpuscular Volume 101.2 fL (80.0-100.0); Platelet Count 207 K/uL (130-400); RDW Standard Deviation 57.8 fL (36.4-46.3); Red Blood Count 2.55 M/uL (4.70-6.10); White Blood Count 6.04 K/ul (4.8-10.8)
[2025-11-10 09:06] LABS: Anion Gap 7.0 (3-11); Blood Urea Nitrogen 46.0 mg/dl (6-23); Calcium 8.5 mg/dl (8.6-10.3); Carbon Dioxide 29.0 mmol/L (21-32); Chloride 106.0 mmol/L (98-107); Creatinine Clr Calc Pharmacy 30.2 ml/min; Glucose 130.0 mg/dl (70-99(Fasting)); Magnesium 1.9 mg/dl (1.7-2.4); Potassium 5.0 mmol/L (3.5-5.1); Sodium 142.0 mmol/L (136-145)
--- NOTE | 2025-11-10 13:30 | Pharmacy Report ---
Pharmacy Glycemic Short Note 2 - Date of Service November 10, 2025 - Glycemic Short BSG Results (Last 24 hours): 11/09/25 11/09/25 11/10/25 16:45 20:18 07:54 Glucose POC Glucose 90 125 H 127 H 11/10/25 11/10/25 08:29 11:04 Glucose 130 H POC Glucose 153 H OUTPATIENT ANTIDIABETIC REGIMEN: * Tresiba 18 units SQ Q AM * Novolog 4 units SQ TID with meals * Jardiance 25mg PO daily * Ozempic 0.5mg SQ weekly HbA1c: 6.7% on 11/08/25 ASSESSMENT: 11/10: * Patient received total of 13 units of insulin yesterday, of which 5 units were basal * Fasting BSG 130 mg/dL - continue same * No change to CF/CR. Will monitor Scr as continuing to trend upward, may need to loosen insulin parameters in future 11/09/25: * Blood sugars elevated yesterday with correction factor only, will add carb ratio today * Fasting blood sugar of 143 mg/dL this morning - will restart low-dose basal insulin today * Worsening MARIAA (SCr 2.54 mg/dL today) - empagliflozin given this AM, but now on hold 11/08/25: * Ole is a 70 year old male who was presented yesterday with increased shortness of breath and lower extremity swelling x 4 weeks. Pharmacy was consulted for glycemic management while he is admitted. * Patient was hypoglycemic on admit (BSG 52 mg/dL) and dropped to 42mg/dL at HS. Unclear what/how much insulin was used prior to arrival. A conservative insulin regimen was started at that time utilizing only the correction factor (no carb coverage). * Fasting BSG was still below goal this morning. Will not start him on basal insulin at this time and will continue bolus insulin regimen without change. PLAN FOR INPATIENT GLYCEMIC CONTROL: * Empagliflozin 25 mg PO daily (on hold currently due to MARIAA) * Basal insulin * Lantus 5 units SC daily * Bolus insulin * NovoLog per scale ACHS or Q6hrs while NPO * Goal Range: Low 120 mg/dL - High 180 mg/dL * Correction Factor: 45 mg/dL/unit * Nutritional / Prandial insulin per carb ratio: 15 g/unit
--- NOTE | 2025-11-10 13:47 | Hospitalist Progress Note ---
Date of Service November 10, 2025 Assessment & Plan (1) Acute on chronic hypoxic respiratory failure: (2) Acute on chronic diastolic heart failure with preserved ejection fraction: (3) COPD (chronic obstructive pulmonary disease): (4) Paroxysmal atrial fibrillation: (5) CKD (chronic kidney disease), stage III: (6) Anemia: (7) DM (diabetes mellitus), type 2: Plan This is a 70yo M with PMH of combined systolic and diastolic HF, type 2 diabetes, hypertension, COPD, heart block s/p pacemaker placement, paroxysmal atrial fibrillation, history of CVA, CKD 3, chronic hypoxic respiratory failure on 2L NC and other medical problems listed below who presents from home with i ncreased shortness of breath and lower extremity swelling x 4 weeks. Acute on chronic respiratory failure Acute on chronic HFpEF Discharged from hospitalization at [place] for COPD exacerbation secondary to PNA in Jul 2025 with new 2L O2 requirement Patient presenting with worsening SOB, edema, increased O2 requirement CXR reviewed - cardiomegaly and cardiac pacemaker with evidence of congestive failure and pulmonary edema TTE on 10/26/25 with EF 50-54%, septal motion is abnormal consistent with right ventricular pacemaker, left atrium is moderately enlarged -> similar compared to prior in Nov 2023 BNP 218 Currently on 3L O2-> try to wean to baseline of 2L as able Initially on IV lasix 40mg daily(prescribed 20mg daily by PCP in Aug for LE edema) Given pts uptrending cr will consult nephro to help assist with diuresis Cardiology decreasing amlodipine to 5mg daily Cr continues to trend upwards to 2.8, await nephro consult, will order urine studies Continue daily weights, I&Os, low salt diet Cardiology following COPD Patient denies fevers and cough (although nursing notes productive cough), no leukocytosis Exacerbation possible but presentation likely due to CHF more than COPD Continue home Spiriva inhaler Add duonebs q6hr due to decreased air entry Follow up with Pulmonology as scheduled in November Paroxysmal A fib History of complete heart block s/p dual chamber pacemaker (2018) Presence of Watchman left atrial appendage closure device Rate controlled No longer on anticoagulation since presence of Watchman left atrial appendage closure device Continue baby aspirin and Coreg Macrocytic anemia Hgb 8-9 since August, was closer to 10 prior to that Started on iron supplementation during hospitalization at [place] [facility] PCP notes possible need for IV iron due to CKD and poor absorption of oral iron B12 and folate WNL Hfb 7.8 today - will infuse IV Venofer today, will consider additional dosing tomorrow MRAIAA/CKD [address] Bauman Creatinine at baseline of ~2.0 cr 2.58 and now 2.8 today, last lasix was 11/08 Avoid nephrotoxic agents as able Monitor renal function, awaiting nephrology consultation Type 2 diabetes A1c 6.7 Hold home agents , jardiance placed on hold given uptrending renal function on 11/09 BSG ACHS and SSI while inpatient Glycemic consult placed due to hypoglycemic episode - appreciate recs for OP regimen DVT Prophylaxis: SCDs Code Status: FULL CODE PCP: Reji Love Disposition: PT/OT recommending rehab at discharge Patient seen in collaboration with Dr. Rojas. Please see addendum. I spent a total of 46 minutes coordinating, documenting and providing care for this patient excluding time spent in the performance of separately billed services or time spent by another provider/QHP. Admission and Anticipated Discharge Date Admission Date: November 07, 2025 Supervising Physician Co-Signing Physician Notes Attending addendum: The patient was seen and examined in telemetry unit He was admitted with increasing shortness of breath and weakness and also leg swelling Noted to have combination of CHF on top of COPD and paroxysmal atrial fibrillation Has been feeling little better since admission Upon examination Sitting on a recliner without any acute distress Remains hemodynamically stable and requiring 3 L to maintain saturation Chestdecreased breath sounds bilaterally the lower area mainly with crackles at the bases. No wheezing HeartS1-S2 regular Abdomenbenign Extremitiesbilateral swelling of the legs with 1+ edema His admission labs, EKG and imaging studies reviewed Has a acute on chronic hypoxic respiratory failure complicated by acute on chronic diastolic heart failure , atrial fibrillation and also COPD Does not have any COPD exacerbationWill continue with nebulized bronchodilator and he is usual inhalers Has been getting intravenous Lasix for fluid overload/acute on chronic diastolic CHF He usually takes 2 L of oxygen at home and now requiring 3 which is expected to improve Agree with assessment and plan as outlined above by Batsheva SPEAR and take the full responsibility of care in the hospital Total time taken to see the patient, examining him, reviewing medications and labs and planning care was [address] Mary Rojas 11/09/2025 The patient was seen and examined in telemetry unit He was noted to be confused by the nursing staff but during examination he seemed quite oriented in time place and person Has weakness but denies any other significant symptoms His examination was unremarkable and stable hemodynamically He was convinced to take intravenous Venofer for iron deficiency anemia He has had physical therapy and recommended rehab therapy but he has been refusing Will coordinate with casework specialist for discharge planning Agree with assessment plan as outlined above by Anabel Nuñez PA-C and take the full responsibility of care in the hospital Total time taken to see the patient, examining him, explaining the results and also plan for care was [address] Mary Rojas 11/10/2025 The patient was seen and examined in telemetry unit He has been more wheezy and requiring more oxygen to maintain saturation Denies any shortness of breath at rest and remains hemodynamically stable Examination of the chest showed minimal wheezing but no crackles Will add Solu-Medrol 40 mg twice daily and continue current management Agree with assessment and plan as outlined above by Willow Nuñez PA-C and take the full responsibility of care in the hospital Total time taken to see the patient, examining him, reviewing the chart and medications and planning of care was [address] Mary Rojas Subjective Pt seen in room 461-2. Pt is resting in bed. Offers no concerns today. Denies f/c/s, chest pain, sob, n/v. He is tolerating diet. Review of Systems Review of Systems: All systems reviewed & are unremarkable except as noted in HPI & below Physical Exam Physical Exam: Gen: Elderly, M, sitting at bedside, NAD, A&O x3, person, place, not time HEENT: Normocephalic, atraumatic, conjunctivae moist, sclerae anicteric, mucous membranes moist. Lung: Clear to Auscultation bilaterally, diminished BS at bases, no wheezes/rales/rhonchi Heart: Regular rate, regular rhythm, no murmurs, rubs, or gallops Abdomen: Soft, NT, ND +BS x 4 Extremities: +1 lower ext edema Skin: Warm, no rash, negative turgor. Results & Data Results & Data Vital Signs (Past 12 Hours) Vital Signs Temp Pulse Pulse Pulse Resp BP Pulse Ox 11/10/25 12:30 36.4 C L 87 18 125/68 92 11/10/25 12:08 72 18 11/10/25 08:00 60 11/10/25 08:00 11/10/25 07:09 60 18 100 11/10/25 07:00 36.6 C 60 16 117/70 100 11/10/25 04:18 36.7 C 75 20 133/64 90 O2 Del Method O2 Flow Rate 11/10/25 12:30 Nasal Cannula 6 11/10/25 12:08 Nasal Cannula 3 11/10/25 08:00 11/10/25 08:00 Nasal Cannula 6 11/10/25 07:09 Nasal Cannula 6 11/10/25 07:00 Nebulizer 6 11/10/25 04:18 Nasal Cannula 6.0 Laboratory Results Short CBC 11/10/25 Range/Units 08:29 WBC 6.04 (4.8-10.8) K/ul Hgb 8.0 L (14.0-18.0) g/dL Hct 25.8 L (42.0-52.0) % Plt Count 207 (130-400) K/uL BMP 11/10/25 08:29 Sodium 142 Potassium 5.0 Chloride 106 Carbon Dioxide 29 BUN 46 H Creatinine 2.82 H Glucose 130 H Calcium 8.5 L I have independently reviewed and interpreted patient's cbc, bmp Medications Administered Current Inpatient Medications Acetaminophen (Acetaminophen 325 Mg Tab) 650 mg PO Q4H PRN PRN Reason: Pain or Fever Stop: 12/07/25 16:31 Albuterol (Albut/Ipratrop 3mg/0.5mg Neb 3 Ml Vial) 3 ml NEB Q6R [facility]; Protocol Stop: 12/08/25 12:59 Last Admin: 11/10/25 12:07 Dose: 3 ml Amlodipine Besylate (Amlodipine Besylate 5 Mg Tab) 5 mg PO DAILY [facility] Stop: 12/10/25 08:59 Last Admin: 11/10/25 08:56 Dose: 5 mg Ascorbic Acid (Ascorbic Acid 500 Mg Tab) 500 mg PO DAILY [facility] Stop: 12/08/25 08:59 Last Admin: 11/10/25 08:56 Dose: 500 mg Aspirin (Aspirin 81 Mg Chew) 81 mg PO DAILY [facility] Stop: 12/08/25 08:59 Last Admin: 11/10/25 08:57 Dose: 81 mg Atorvastatin Calcium (Atorvastatin 40 Mg Tab) 40 mg PO DAILY [facility] Stop: 12/08/25 08:59 Last Admin: 11/10/25 08:57 Dose: 40 mg Carvedilol (Carvedilol 25 Mg Tab) 25 mg PO BIDM [facility] Stop: 12/07/25 20:59 Last Admin: 11/10/25 08:56 Dose: 25 mg Cetirizine HCl (Cetirizine Hcl 10 Mg Tablet) 10 mg PO DAILY [facility] Stop: 12/08/25 08:59 Last Admin: 11/10/25 08:57 Dose: 10 mg Dextrose (Dextrose 50% 50 Ml Syringe) 25 - 50 ml IV UD PRN; Protocol PRN Reason: Hypoglycemia Protocol Stop: 12/07/25 15:25 Empagliflozin (Empagliflozin 25 Mg Tab) 25 mg PO DAILY [facility] Stop: 12/08/25 08:59 Last Admin: 11/09/25 08:54 Dose: 25 mg Famotidine (Famotidine 20 Mg Tab) 20 mg PO BID [facility] Stop: 12/07/25 20:59 Last Admin: 11/10/25 08:58 Dose: 20 mg Ferrous Sulfate (Ferrous Sulfate 325 Mg Tab) 325 mg PO DAILY [facility] Stop: 12/08/25 08:59 Last Admin: 11/10/25 08:56 Dose: 325 mg Folic Acid (Folic Acid 1 Mg Tab) 1 mg PO DAILY [facility] Stop: 12/08/25 08:59 Last Admin: 11/10/25 08:57 Dose: 1 mg Furosemide (Furosemide 40 Mg/4 Ml Vial) 40 mg IV DAILY [facility] Stop: 12/08/25 08:59 Last Admin: 11/08/25 09:51 Dose: 40 mg Glucagon (Glucagon For Inj 1 Mg Vial) 1 mg SQ UD PRN; Protocol PRN Reason: Hypoglycemia Protocol Stop: 12/07/25 15:25 Glucose (Glucose 40% Gel 15 Gm Tube) 15 - 30 gm PO UD PRN; Protocol PRN Reason: Hypoglycemia Protocol Stop: 12/07/25 15:25 Glucose (Glucose 10 Tab/Tube) 4 - 8 tab PO UD PRN; Protocol PRN Reason: Hypoglycemia Protocol Stop: 12/07/25 15:25 Insulin Aspart (Insulin Aspart Per Unit Charge) 0 units SC ACHS [facility] Stop: 12/07/25 16:29 Last Admin: 11/10/25 12:37 Dose: Not Given Insulin Glargine (Lantus Per Unit Charge) 5 units SQ DAILY [facility] Stop: 12/09/25 08:59 Last Admin: 11/10/25 08:53 Dose: 5 units Miscellaneous (Carbohydrates For Hypoglycemia ) 15 - 30 gm PO UD PRN PRN Reason: Hypoglycemia Protocol Stop: 12/07/25 15:25 Last Admin: 11/08/25 02:00 Dose: 30 gm Miscellaneous Information (Pharmacy Glycemic Mgmt Consult) 1 each N/A UD PRN; Protocol PRN Reason: Consult Stop: 12/07/25 16:15 Montelukast Sodium (Montelukast Sodium 10 Mg Tablet) 10 mg PO HS [facility] Stop: 12/07/25 20:59 Last Admin: 11/09/25 20:21 Dose: 10 mg Ondansetron HCl (Ondansetron Inj 2 Mg/Ml 2 Ml Vial) 4 mg IV Q6H PRN PRN Reason: Nausea Stop: 12/07/25 16:31 Pantoprazole Sodium (Pantoprazole 40 Mg Tab) 40 mg PO DAILY [facility] Stop: 12/08/25 08:59 Last Admin: 11/10/25 08:57 Dose: 40 mg Polyethylene Glycol (Polyethylene (Miralax) 17 Gm Pack) 17 gm PO DAILY PRN PRN Reason: Constipation Stop: 12/07/25 16:31 Umeclidinium Victoria (Umeclidinium Victoria 62.5mcg/Blister 7 Puffs/Inhaler) 1 puffs INH DAILY [facility] Stop: 12/08/25 08:59 Last Admin: 11/10/25 08:57 Dose: 1 puffs
--- NOTE | 2025-11-10 14:50 | Cardiology Progress Note ---
Date of Service November 10, 2025 Assessment & Plan (1) Acute on chronic diastolic heart failure with preserved ejection fraction: (2) Acute on chronic hypoxic respiratory failure: (3) Anemia: (4) CKD (chronic kidney disease), stage III: Plan Patient is a 70 year old male admitted to [facility] with symptoms of worsening SOB, edema, weight gain consistent with acute on chronic HFpEF and acute on chronic respiratory failure with hypoxia. Long history of underlying COPD/tobacco abuse and HFpEF. He does not take diuretics on a regular basis. Echo last week with preserved LVEF, no significant valvular disease Acute HFpEF -He received several doses of IV lasix since admission with good urine outputs. -Volume status improving -Repeat furosemide 40 mg IV x1 dose today -Monitor I+O's -Daily weight with standing scale -Monitor renal function - creatinine at 2.0 today (increase from 1.8 yesterday). Per review of outpatient labs, creatinine ranges 1.8-2.2 over the last few years. PAF - becoming more persistent -[employer] pacemaker with recent interrogation showing 75% burden of afib. Rates controlled -Continue carvedilol -No longer on anticoagulation due to presence of watchman device -continue ASA COPD -Likely underlying exacerbation contributing to his dyspnea/hypoxia as well -continue nebs/inhalers 11/09/2025 Complex 70-year-old male admitted with mixed respiratory failure with decompensated congestive heart failure superimposed on chronic obstructive lung disease, anemia, chronic renal insufficiency Minimal response to IV diuretics with worsening creatinine. Recommendations: Reduce amlodipine to 5 mg/day to aid in lower extremity edema Would hold Jardiance given declining renal function Suspect requires higher dosing of diuretic but would request nephrology aid in management Continue oxygen supplementation Treat anemia as initiate 11/10/2025 Mixed respiratory failure with underlying pulmonary disease as well as decompensated congestive heart failure increasing lower extremity edema. Edema has improved with mild diuresis Amlodipine decreased due to edema,. Renal insufficiency has worsened with diuresis Recommendations continue to hold diuretics for time being Assess pulmonary status would not titrate oxygen to 6 L unless hypoxia persistent. Assess for CO2 retention Admission and Anticipated Discharge Date Admission Date: November 07, 2025 Subjective Patient seen and examined, chart, medications, telemetry reviewed Clinically feels improved. Lower extremity edema less pronounced after 2 kg weight loss. Diuretics on hold due to increasing creatinine Blood pressures Oxygen upward titration Review of Systems Review of Systems: All systems reviewed & are unremarkable except as noted in Subjective Results & Data Vital Signs (Past 12 Hours) Vital Signs Temp Pulse Pulse Pulse Resp BP Pulse Ox 11/10/25 12:30 36.4 C L 87 18 125/68 92 11/10/25 12:08 72 18 11/10/25 08:00 60 11/10/25 08:00 11/10/25 07:09 60 18 100 11/10/25 07:00 36.6 C 60 16 117/70 100 11/10/25 04:18 36.7 C 75 20 133/64 90 O2 Del Method O2 Flow Rate 11/10/25 12:30 Nasal Cannula 6 11/10/25 12:08 Nasal Cannula 3 11/10/25 08:00 11/10/25 08:00 Nasal Cannula 6 11/10/25 07:09 Nasal Cannula 6 11/10/25 07:00 Nebulizer 6 11/10/25 04:18 Nasal Cannula 6.0 Laboratory Results Laboratory Results - last 24 hr 11/09/25 11/09/25 11/10/25 16:45 20:18 07:54 WBC RBC Hgb Hct MCV MCH MCHC RDW Std Deviation RDW Coeff of Victoria Plt Count MPV Immature Gran % (Auto) Neut % (Auto) Lymph % (Auto) [place] % (Auto) Eos % (Auto) Baso % (Auto) Neut # (Auto) Lymph # (Auto) [place] # (Auto) Eos # (Auto) Baso # (Auto) Immature Gran # (Auto) Sodium Potassium Chloride Carbon Dioxide Anion Gap BUN Creatinine Est Cr Clr Drug Dosing eGFR BUN/Creatinine Ratio Glucose POC Glucose 90 125 H 127 H Calcium Magnesium 11/10/25 11/10/25 08:29 11:04 WBC 6.04 RBC 2.55 L Hgb 8.0 L Hct 25.8 L MCV 101.2 H MCH 31.4 MCHC 31.0 L RDW Std Deviation 57.8 H RDW Coeff of [place] 15.5 H Plt Count 207 MPV 10.0 Immature Gran % (Auto) 0.3 Neut % (Auto) 75.7 Lymph % (Auto) 12.9 [place] % (Auto) 7.3 Eos % (Auto) 3.3 Baso % (Auto) 0.5 Neut # (Auto) 4.57 Lymph # (Auto) 0.78 L [place] # (Auto) 0.44 Eos # (Auto) 0.20 Baso # (Auto) 0.03 Immature Gran # (Auto) 0.02 Sodium 142 Potassium 5.0 Chloride 106 Carbon Dioxide 29 Anion Gap 7 BUN 46 H Creatinine 2.82 H Est Cr Clr Drug Dosing 30.2 eGFR 23.34 BUN/Creatinine Ratio 16.3 Glucose 130 H POC Glucose 153 H Calcium 8.5 L Magnesium 1.9 PG Care Time/CCT Total # of Minutes Spent Total Time Spent with Patient: Total time spent is greater than 50% in coordination of care (as documented) at patient's floor/unit and/or counseling patient: Coding Level of Care Code 16757 SUB INP/OBS CARE 3/50MIN Diagnoses Acute on chronic diastolic heart failure with preserved ejection fraction I50.33 Acute on chronic hypoxic respiratory failure J96.21 Anemia D64.9 CKD (chronic kidney disease), stage III N18.30
--- NOTE | 2025-11-10 15:38 | XRay Report ---
TWO VIEW CHEST CLINICAL HISTORY: Congestive heart failure.. FINDINGS: PA and lateral chest radiographs are compared to study dated 11/07/2025 and correlated with chest CT dated 07/02/2015. A 2-lead cardiac pacemaker is unchanged in position. A left atrial occlusi on device is in place. The heart is enlarged noting atherosclerotic calcification of the thoracic aor ta. There is pulmonary vascular congestion with mild interstitial edema. There are small pleural effu sions with dependent consolidation. There is no pneumothorax. The skeletal structures are osteopenic. The bony thorax appears intact. Atherosclerotic calcification is seen in the carotid bulbs. IMPRESSION: 1. Cardiomegaly and cardiac pacemaker with evidence of congestive failure and mild pulmonary edema. 2. Small pleural effusions with dependent consolidation. ACT 112: Negative or not required by law. Electronically signed by: Jeramy Orona M.D. 11/10/2025 3:37 PM
--- NOTE | 2025-11-10 16:13 | Communication Note ---
Date of Service: November 10, [address] Bauman via TT. CXR ordered with evidence of continued CHF. Per Dr. Bauman okay to give IV lasix; therefore 40mg IV lasix ordered. Per Dr. Rojas IV solumedrol 40mg BID started for COPD as well. Await formal nephro consult which Dr. Bauman stated would occur later today. Jamila Marx PA-C
--- NOTE | 2025-11-10 17:32 | Nephrology Consultation ---
Date of Consultation November 10, 2025 Assessment & Plan (1) MARIAA (acute kidney injury): Creat has been rising last few days from 1.88 to 2.88 now. However this is not from lasix--he has had hardly any diuresis--on average about 1000 ml per day of urine is hardly diuresis. even now has clear e/o fluid overload. MARIAA is most likely ATN in the setting of CHF/Hypoxia/resp failure. this is why we are seeing clear pattern of daily rise in creatinine. with underlying CKD he is prone for that. Check UA and also urine PCR. making urine and not really acting like Obstruction. Stop jardiance, JETHRO, ARB, NSAID if any. Avoid contrast agents. will continue with lasix 40 iv bid---got one dose just now. daily labs. I and O charting. (2) CKD (chronic kidney disease), stage III: baseline CKD 3B from mmultiple issues. Current creat hgher than baseline of around 2. (3) Acute on chronic hypoxic respiratory failure: Sig decline since pneumonia adx in . even now needing high 02. Not a lot of Diuresis so far. Consider CT chest also to evaluate for underlying Pulm issues also. but for now will assume mainly related with CHF Plan time spent 62 mins History of Present Illness Reason for Consultation: MARIAA on CKD with CHF Attending Physician: Judy Rojas MD History of Present Illness 70/M with baseline CKD 3B ( creat varies but around 2) . Has combined systolic and diastolic HF, type 2 diabetes, hypertension, COPD, heart block s/p pacemaker placement, paroxysmal atrial fibrillation, history of CVA, CKD 3B, chronic hypoxic respiratory failure on 2L NC and other medical problems listed below who presents from home with increased shortness of breath and lower extremity swelling x 4 weeks. Ppatient was admitted to [facility] in August for pneumonia and has felt more short of breath since then. Was discharged from that admission on 2 L nasal cannula O2, which he has remained on at home. Patient continues to feel short of breath, which is exacerbated by movement. He manages his own medications. He was started on Lasix 20 mg twice daily, per chart review. However, patient states he has been taking 20 mg daily at home. Denies any fever, chills, nasal congestion, sore throat or wheezing. No headache, chest pain pain or palpitations. No nausea, vomiting, abdominal pain, dysuria, diarrhea or constipation. Ambulates with a walker at home but admittedly does not use it. Last echo performed 10/26/25 and was stable as compared to previous echo from Nov 2023. EF remains 50-54%, with septal motion is abnormal consistent with right ventricular pacemaker. The left atrium is moderately enlarged. Since admission has been getting some iv lasix but not much response and CXR not improved. However creat is slowly rising and is now 2.88 up from 1.88 few days ago on Admission. He feels slightly better though. urine output has been about 1000 ml/day so not really brisk ROS--12 Systems reviewed and is otherwise negative. See HPI Physical Exam Physical Exam: Elderly male, some resp distress. Weak. AAox 3 HEENT: Normocephalic, atraumatic, mucous membranes moist. Lung: b/l prolonged exp, wheeze and some rhonchi heard Heart: Regular rate, regular rhythm, no murmurs Abdomen: Soft, NT Extremities: +1 lower ext edema Skin: Warm, no rash, negative turgor. Allergies Allergy/AdvReac Type Severity Reaction Status Date / Time Penicillins Allergy Unknown UNKNOWN Verified 07/02/15 00:43 Home Medications Medication Instructions Recorded Confirmed Type amlodipine 10 mg tablet 10 mg PO DAILY 11/07/25 11/07/25 History ascorbic acid (vitamin C) 500 mg 500 mg PO DAILY 11/07/25 11/07/25 History chewable tablet (Vitamin C) aspirin 81 mg chewable tablet 81 mg PO DAILY 11/07/25 11/07/25 History atorvastatin 40 mg tablet 40 mg PO DAILY 11/07/25 11/07/25 History carvedilol 25 mg tablet 25 mg PO BID 11/07/25 11/07/25 History cetirizine 10 mg tablet 10 mg PO DAILY 11/07/25 11/07/25 History clopidogrel 75 mg tablet 75 mg PO DAILY 11/07/25 11/07/25 History empagliflozin 25 mg tablet 25 mg PO DAILY 11/07/25 11/07/25 History (Jardiance) famotidine 20 mg tablet 20 mg PO BID 11/07/25 11/07/25 History ferrous sulfate 325 mg (65 mg 325 mg PO TID 11/07/25 11/07/25 History iron) tablet folic acid 1 mg tablet 1 mg PO DAILY 11/07/25 11/07/25 History furosemide 20 mg tablet 20 mg PO DAILY Edema 11/07/25 11/07/25 History insulin degludec 100 unit/mL (3 18 unit subcut DAILY 11/07/25 11/07/25 History mL) subcutaneous pen (Tresiba FlexTouch U-100 insulin) montelukast 10 mg tablet 10 mg PO HS 11/07/25 11/07/25 History omeprazole 20 mg capsule,delayed 20 mg PO DAILY 11/07/25 11/07/25 History release semaglutide 0.25 mg or 0.5 mg (2 0.5 mg subcut WK 11/07/25 11/07/25 History mg/3 mL) subcutaneous pen injector (Ozempic) tiotropium bromide 2.5 2 inh inhalation DAILY 11/07/25 11/07/25 History mcg/actuation mist for inhalation (Spiriva Respimat) Patient History Medical History COPD (chronic obstructive pulmonary disease) CKD (chronic kidney disease), stage III History of subdural hematoma History of CVA (cerebrovascular accident) Combined systolic and diastolic congestive heart failure Paroxysmal atrial fibrillation DM (diabetes mellitus), type 2 Surgical History Pacemaker 2019 S/P small bowel resection @ [facility] [place], 2019 Presence of Watchman left atrial appendage closure device Perc closure transcath left atrial appendage w/endocardial implant (Bilateral) by Dr. Meeks 03/02/25 Incisional hernia s/p repair 04/11 at [facility] [place] S/P cardiac pacemaker procedure History of craniotomy Social History Smoking Status: Never smoker Hx Alcohol Use: No Hx Substance Use: No Preferred Language: Danish Communication Ability: Effective School Lunch Manager Required: No Beliefs That Will Affect Care: None Current Living Situation: Alone Current Living Situation Comment: Lives Alone Other Information That Helps Us Care for You: No Feels Safe at Home: Yes Safety Concerns: Feels Safe At This Time Assistive Devices: None Assistive Devices Comment: oxygen 2L at baseline Results & Data Vital Signs (Past 12 Hours) Vital Signs Temp Pulse Pulse Pulse Resp BP Pulse Ox 11/10/25 16:00 11/10/25 15:55 36.2 C L 59 L 20 110/60 98 11/10/25 12:30 36.4 C L 87 18 125/68 92 11/10/25 12:08 72 18 11/10/25 08:00 60 11/10/25 08:00 11/10/25 07:09 60 18 100 11/10/25 07:00 36.6 C 60 16 117/70 100 O2 Del Method O2 Del Method O2 Flow Rate O2 Flow Rate 11/10/25 16:00 Nasal Cannula 4 11/10/25 15:55 Nasal Cannula 4 11/10/25 12:30 Nasal Cannula 6 11/10/25 12:08 Nasal Cannula 3 11/10/25 08:00 11/10/25 08:00 Nasal Cannula 6 11/10/25 07:09 Nasal Cannula 6 11/10/25 07:00 Nebulizer 6 Diagnostic Findings CBC renal panel CXR--11/07 and then today 11/10--CHF
[2025-11-10 17:33] LABS: Appearance Urine Cloudy (Clear); Bacteria Urine Automated None Seen (None Seen); Cast Urine Automated 0-2 /lpf (0-2); Epithelial Cell Urine Auto 0-2 /hpf (0-2); Glucose Urine UA 3+ (Negative); RBC Urine Automated >20 /hpf (0-2); WBC Urine Automated >50 /hpf (0-5)
[2025-11-10] MEDS: FUROSEMIDE 40 MG/4 ML VIAL IV ONE (17:43)
[2025-11-10 18:33] LABS: Protein Creatinine Ratio Urine 1.0 (0-0.2); Total Protein Urine Random 86.7 mg/dl (0-11.9)
[2025-11-11] MEDS: FUROSEMIDE INJ 20 MG/2 ML VIAL IV ONE (00:49)
[2025-11-11 05:27] LABS: Hematocrit (blood only) 24.9 % (42.0-52.0); Hemoglobin 7.8 g/dL (14.0-18.0); Mean Corpuscular Hemoglobin 31.6 pg (25.0-34.0); Mean Corpuscular Volume 100.8 fL (80.0-100.0); Platelet Count 212 K/uL (130-400); RDW Standard Deviation 57.3 fL (36.4-46.3); Red Blood Count 2.47 M/uL (4.70-6.10); White Blood Count 5.88 K/ul (4.8-10.8)
[2025-11-11 05:42] LABS: Anion Gap 8.0 (3-11); Blood Urea Nitrogen 50.0 mg/dl (6-23); Calcium 8.7 mg/dl (8.6-10.3); Carbon Dioxide 27.0 mmol/L (21-32); Chloride 106.0 mmol/L (98-107); Creatinine Clr Calc Pharmacy 28.3 ml/min; Glucose 222.0 mg/dl (70-99(Fasting)); Magnesium 1.9 mg/dl (1.7-2.4); Potassium 5.6 mmol/L (3.5-5.1); Sodium 141.0 mmol/L (136-145)
[2025-11-11] MEDS: FUROSEMIDE 40 MG/4 ML VIAL IV SCH ×2 (09:00→20:21)
[2025-11-11] MEDS: LANTUS PER UNIT CHARGE SQ SCH (09:08)
--- NOTE | 2025-11-11 15:30 | Nephrology Progress Note ---
Date of Service November 11, 2025 Assessment & Plan Admission and Anticipated Discharge Date Admission Date: November 07, 2025 Subjective Assessment & Plan (1) MARIAA (acute kidney injury): Creat has been rising last few days from 1.88 to 2.88 to 3 now. However this is not from lasix--he has had hardly any diuresis--on average about 1000 ml per day of urine is hardly diuresis. even now has clear e/o fluid overload. MARIAA is sec to ATN in the setting of CHF/Hypoxia/resp failure. this is why we are seeing clear pattern of daily rise in creatinine. with underlying CKD he is prone for that. Not much urine with 40 iv--raise the dose to 80 bid. K is also high now so add lokelma 10 tid also Check UA and also urine PCR--1 gm proteinuria and active sediment. making urine and not really acting like Obstruction. Stop jardiance, JETHRO, ARB, NSAID if any. Avoid contrast agents. daily labs. I and O charting.\ (2) CKD (chronic kidney disease), stage III: baseline CKD 3B from multiple issues. Current creat higher than baseline of around 2. (3) Acute on chronic hypoxic respiratory failure: Sig decline since pneumonia adx in . even now needing high 02. Not a lot of Diuresis so far. Consider CT chest also to evaluate for underlying Pulm issues also. but for now will assume mainly related with CHF S--no new issues. still SOB with exertion. Making urine but not a lot. labs worse ROS--12 Systems reviewed and is otherwise negative. See HPI Physical Exam Physical Exam: Elderly male, some resp distress. Weak. AAox 3 HEENT: Normocephalic, atraumatic, mucous membranes moist. Lung: b/l prolonged exp, wheeze and some rhonchi heard Heart: Regular rate, regular rhythm, no murmurs Abdomen: Soft, NT Extremities: +1 lower ext edema Skin: Warm, no rash, negative turgor. Results & Data Vital Signs (Past 12 Hours) Vital Signs Temp Pulse Pulse Resp BP BP Pulse Ox 11/11/25 15:03 60 11/11/25 12:53 70 18 95 11/11/25 12:07 36.6 C 60 17 128/69 93 11/11/25 11:42 90 11/11/25 09:57 91 11/11/25 08:38 36.7 C 61 18 126/70 97 11/11/25 07:49 11/11/25 07:49 92 11/11/25 07:23 60 16 96 11/11/25 07:19 71 11/11/25 07:16 94 11/11/25 04:08 36.5 C 75 20 150/72 H 94 O2 Del Method O2 Flow Rate 11/11/25 15:03 11/11/25 12:53 Nasal Cannula 5 11/11/25 12:07 Nasal Cannula 5 11/11/25 11:42 Nasal Cannula 5 11/11/25 09:57 Nasal Cannula 6 11/11/25 08:38 Nasal Cannula 4 11/11/25 07:49 Oxymask 4 11/11/25 07:49 Oxymask 4 11/11/25 07:23 Oxymask 8 11/11/25 07:19 11/11/25 07:16 Oxymask 8 11/11/25 04:08 Oxymask 10
--- NOTE | 2025-11-11 15:33 | Hospitalist Progress Note ---
Date of Service November 11, 2025 Assessment & Plan (1) MARIAA (acute kidney injury): (2) Acute on chronic diastolic heart failure with preserved ejection fraction: (3) Acute on chronic hypoxic respiratory failure: (4) Anemia: Plan This is a 70yo M with PMH of combined systolic and diastolic HF, type 2 diabetes, hypertension, COPD, heart block s/p pacemaker placement, paroxysmal atrial fibrillation, history of CVA, CKD 3, chronic hypoxic respiratory failure on 2L NC and other medical problems listed below who presents from home with increased shortness of breath and lower extremity swelling x 4 weeks. Acute on chronic respiratory failure Acute on chronic HFpEF Discharged from hospitalization at [place] for COPD exacerbation secondary to PNA in Jul 2025 with new 2L O2 requirement Patient presenting with worsening SOB, edema, increased O2 requirement CXR reviewed - cardiomegaly and cardiac pacemaker with evidence of congestive failure and pulmonary edema TTE on 10/26/25 with EF 50-54%, septal motion is abnormal consistent with right v entricular pacemaker, left atrium is moderately enlarged -> similar compared to prior in Nov 2023 Currently on 3L O2-> try to wean to baseline of 2L as able Initially on IV lasix 40mg daily (prescribed 20mg daily by PCP in Aug for LE edema) but have increased as per nephro due to concurrent CHF and ATN Cardiology decreasing amlodipine to 5mg daily Continue daily weights, I&Os, low salt diet COPD Patient denies fevers and cough (although nursing notes productive cough), no leukocytosis Exacerbation possible but presentation likely due to CHF more than COPD Continue home Spiriva inhaler Add duonebs q6hr due to decreased air entry Follow up with Pulmonology as scheduled in November Trialed steroids but felt to be more consistent with cardiac etiology Paroxysmal A fib History of complete heart block s/p dual chamber pacemaker (2018) Presence of Watchman left atrial appendage closure device Rate controlled No longer on anticoagulation since presence of Watchman left atrial appendage closure device Continue baby aspirin and Coreg Macrocytic anemia Hgb 8-9 since August, was closer to 10 prior to that Started on iron supplementation during hospitalization at [place] PCP notes possible need for IV iron due to CKD and poor absorption of oral iron, s/p Venofer x 1 on 11/09 B12 and folate WNL Hgb 7.8 today MARIAA 2/2 ATN superimposed on CKD [address] Bauman, feels Cr trend is 2/2 ATN in setting of underlying CKD, hypoxia, CHF Creatinine at baseline of ~2.0 During admission, Cr up-trending from 1.88 -> 2.88 -> 3.01 today Lasix increased from 40 to 80mg BID to increase urine output, per nephro Jardiance held, not on JETHRO, ARB or nsaids Strict I&Os Hyperkalemia K 5.6 today, repeat BMP this afternoon with augmented lasix dose 10mg TID Lokelma added by nephro Monitor Type 2 diabetes A1c 6.7 Hold home agents , Jardiance placed on hold BSG ACHS and SSI while inpatient Glycemic consult placed due to hypoglycemic episode - appreciate recs for OP regimen DVT Prophylaxis: SCDs Code Status: FULL CODE PCP: Reji Love Disposition: PT/OT recommending rehab at discharge, patient decided whether or not he will be agreeable to inpatient rehab vs home services once medically sta ble Patient seen in collaboration with Dr. Rojas. Please see addendum. I spent a total of 50 minutes coordinating, documenting and providing care for this patient excluding time spent in the performance of separately billed services or time spent by another provider/QHP. Admission and Anticipated Discharge Date Admission Date: November 07, 2025 Supervising Physician Co-Signing Physician Notes Attending addendum: The patient was seen and examined in telemetry unit He was admitted with increasing shortness of breath and weakness and also leg swelling Noted to have combination of CHF on top of COPD and paroxysmal atrial fibrillation Has been feeling little better since admission Upon examination Sitting on a recliner without any acute distress Remains hemodynamically stable and requiring 3 L to maintain saturation Chestdecreased breath sounds bilaterally the lower area mainly with crackles at the bases. No wheezing HeartS1-S2 regular Abdomenbenign Extremitiesbilateral swelling of the legs with 1+ edema His admission labs, EKG and imaging studies reviewed Has a acute on chronic hypoxic respiratory failure complicated by acute on chronic diastolic heart failure , atrial fibrillation and also COPD Does not have any COPD exacerbationWill continue with nebulized bronchodilator and he is usual inhalers Has been getting intravenous Lasix for fluid overload/acute on chronic diastolic CHF He usually takes 2 L of oxygen at home and now requiring 3 which is expected to improve Agree with assessment and plan as outlined above by Batsheva SPEAR and take the full responsibility of care in the hospital Total time taken to see the patient, examining him, reviewing medications and labs and planning care was [address] Mary Rojas 11/09/2025 The patient was seen and examined in telemetry unit He was noted to be confused by the nursing staff but during examination he seemed quite oriented in time place and person Has weakness but denies any other significant symptoms His examination was unremarkable and stable hemodynamically He was convinced to take intravenous Venofer for iron deficiency anemia He has had physical therapy and recommended rehab therapy but he has been refusing Will coordinate with case liner for discharge planning Agree with assessment plan as outlined above by Anabel Nuñez PA-C and take the full responsibility of care in the hospital Total time taken to see the patient, examining him, explaining the results and also plan for care was [address] Mary Rojas 11/10/2025 The patient was seen and examined in telemetry unit He has been more wheezy and requiring more oxygen to maintain saturation Denies any shortness of breath at rest and remains hemodynamically stable Examination of the chest showed minimal wheezing but no crackles Will add Solu-Medrol 40 mg twice daily and continue current management Agree with assessment and plan as outlined above by Willow Nuñez PA-C and take the full responsibility of care in the hospital Total time taken to see the patient, examining him, reviewing the chart and medications and planning of care was [address] Mary Rojas 11/11/2025 The patient was seen and examined in telemetry unit in presence of the family members He has been stable from his shortness of breath following giving Lasix He will be getting more Lasix for the next day or 2 He denies any other significant symptoms Will continue PT and OT and most likely the patient will be going to short-term rehab and he seems to be agreeable This was discussed in detail with the family members the daughter and the [id number] case he qualifies for going home he will have home PT He is examinations remain unremarkable Agree with assessment and plan as outlined above by Teresa Dickerson PA-C and take the full responsible care in the hospital I spent a total of 20 minutes seeing the patient, going over the medications and planning of care and discussion with the family members and specialist DR Mary Rojas Subjective Seen and examined in 461-2. Breathing slightly improved from yesterday. Discouraged about hospitalization. No new findings overnight. Making more urine today. Review of Systems Review of Systems: At least ten systems reviewed and negative except as noted in the HPI. Physical Exam Physical Exam: Gen: WD/WN, NAD, sitting up at side of bed, A&O x3 HEENT: Normocephalic, atraumatic Lung: Clear to Auscultation bilaterally but diminished at bases Heart: Regular rate, regular rhythm Abdomen: Soft, NT, ND +BS x 4 Extremities: 1+ edema Skin: Warm, no rash Results & Data Results & Data Vital Signs (Past 12 Hours) Vital Signs Temp Pulse Pulse Resp BP BP Pulse Ox 11/11/25 15:03 60 11/11/25 12:53 70 18 95 11/11/25 12:07 36.6 C 60 17 128/69 93 11/11/25 11:42 90 11/11/25 09:57 91 11/11/25 08:38 36.7 C 61 18 126/70 97 11/11/25 07:49 11/11/25 07:49 92 11/11/25 07:23 60 16 96 11/11/25 07:19 71 11/11/25 07:16 94 11/11/25 04:08 36.5 C 75 20 150/72 H 94 O2 Del Method O2 Flow Rate 11/11/25 15:03 11/11/25 12:53 Nasal Cannula 5 11/11/25 12:07 Nasal Cannula 5 11/11/25 11:42 Nasal Cannula 5 11/11/25 09:57 Nasal Cannula 6 11/11/25 08:38 Nasal Cannula 4 11/11/25 07:49 Oxymask 4 11/11/25 07:49 Oxymask 4 11/11/25 07:23 Oxymask 8 11/11/25 07:19 11/11/25 07:16 Oxymask 8 11/11/25 04:08 Oxymask 10 Laboratory Results Short CBC 11/11/25 Range/Units 05:14 WBC 5.88 (4.8-10.8) K/ul Hgb 7.8 L (14.0-18.0) g/dL Hct 24.9 L (42.0-52.0) % Plt Count 212 (130-400) K/uL BMP 11/11/25 05:14 Sodium 141 Potassium 5.6 H Chloride 106 Carbon Dioxide 27 BUN 50 H Creatinine 3.01 H Glucose 222 H Calcium 8.7 Urine 11/10/25 Range/Units 17:05 Urine Color Yellow Urine Appearance Cloudy A (Clear) Urine pH 5.0 (4.5-7.5) Ur Specific [place] 1.020 (1.000-1.030) Urine Protein 2+ H (Negative) Urine Glucose (UA) 3+ H (Negative) Diagnostic Findings Chest X-Ray 11/07/25 12:55 SINGLE VIEW CHEST CLINICAL HISTORY: Dyspnea FINDINGS: An AP, portable, semierect chest radiograph is compared to chest x-ray and chest CT dated 07/02/2015. A 2-lead cardiac pacemaker is in place. Leads project over the right atrial appendage and right ventricle. The heart is enlarged and no definite atherosclerotic calcification of the thoracic aorta. There is pulmonary vascular congestion with interstitial edema. Small pleural effusions are suspected with bibasilar consolidation. No pneumothorax is seen. The skeletal structures are osteopenic. The bony thorax is grossly intact. Arthritic change is seen in the shoulders. IMPRESSION: 1. Cardiomegaly and cardiac pacemaker with evidence of congestive failure and pulmonary edema. 2. Small pleural effusions with dependent consolidation. ACT 112: Negative or not required by law. Electronically signed by: Jeramy Orona M.D. 11/07/2025 1:12 PM Chest X-Ray 11/10/25 14:28 TWO VIEW CHEST CLINICAL HISTORY: Congestive heart failure.. FINDINGS: PA and lateral chest radiographs are compared to study dated 11/07/2025 and correlated with chest CT dated 07/02/2015. A 2-lead cardiac pacemaker is unchanged in position. A left atrial occlusion device is in place. The heart is enlarged noting atherosclerotic calcification of the thoracic aorta. There is pulmonary vascular congestion with mild interstitial edema. There are small pleural effusions with dependent consolidation. There is no pneumothorax. The skeletal structures are osteopenic. The bony thorax appears intact. Atherosclerotic calcification is seen in the carotid bulbs. IMPRESSION: 1. Cardiomegaly and cardiac pacemaker with evidence of congestive failure and mild pulmonary edema. 2. Small pleural effusions with dependent consolidation. ACT 112: Negative or not required by law. Electronically signed by: Jeramy Orona M.D. 11/10/2025 3:37 PM (4) Anemia Anemia type: unspecified type Qualified Code(s): D64.9 - Anemia, unspecified
--- NOTE | 2025-11-11 15:48 | Cardiology Progress Note ---
Date of Service November 11, 2025 Assessment & Plan (1) Acute on chronic diastolic heart failure with preserved ejection fraction: (2) Acute on chronic hypoxic respiratory failure: (3) Anemia: (4) CKD (chronic kidney disease), stage III: Plan Patient is a 70 year old male admitted to [facility] with symptoms of worsening SOB, edema, weight gain consistent with acute on chronic HFpEF and acute on chronic respiratory failure with hypoxia. Long history of underlying COPD/tobacco abuse and HFpEF. He does not take diuretics on a regular basis. Echo last week with preserved LVEF, no significant valvular disease Acute HFpEF -He received several doses of IV lasix since admission with good urine outputs. -Volume status improving -Repeat furosemide 40 mg IV x1 dose today -Monitor I+O's -Daily weight with standing scale -Monitor renal function - creatinine at 2.0 today (increase from 1.8 yesterday). Per review of outpatient labs, creatinine ranges 1.8-2.2 over the last few years. PAF - becoming more persistent -[employer] pacemaker with recent interrogation showing 75% burden of afib. Rates controlled -Continue carvedilol -No longer on anticoagulation due to presence of watchman device -continue ASA COPD -Likely underlying exacerbation contributing to his dyspnea/hypoxia as well -continue nebs/inhalers 11/09/2025 Complex 70-year-old male admitted with mixed respiratory failure with decompensated congestive heart failure superimposed on chronic obstructive lung disease, anemia, chronic renal insufficiency Minimal response to IV diuretics with worsening creatinine. Recommendations: Reduce amlodipine to 5 mg/day to aid in lower extremity edema Would hold Jardiance given declining renal function Suspect requires higher dosing of diuretic but would request nephrology aid in management Continue oxygen supplementation Treat anemia as initiate 11/10/2025 Mixed respiratory failure with underlying pulmonary disease as well as decompensated congestive heart failure increasing lower extremity edema. Edema has improved with mild diuresis Amlodipine decreased due to edema,. Renal insufficiency has worsened with diuresis Recommendations continue to hold diuretics for time being Assess pulmonary status would not titrate oxygen to 6 L unless hypoxia persistent. Assess for CO2 retention 11/11/2025: -patient is resting comfortably without acute concern. O2 sats stable on 4-5LPM supplemental O2, but do drop quickly when he removes his Oxygen. remains asymptomatic. -Nephrology on consult and have restarted diuretics. Appreciate recommendations. Case has been discussed with Dr. Olsen. Further recommendations regarding plan of care as per her assessment. I spent a total of 30 minutes on the date of service in preparation, delivery, documentation of the care provided to the patient excluding any time spent in the performance of separately billed services. RAINER Jacques [facility] Admission and Anticipated Discharge Date Admission Date: November 07, 2025 Supervising Physician Co-Signing Physician Notes I have reviewed the advanced practitioner's documentation on the date of service referenced in note, and I agree with, and take responsibility for the plan of care. I spent a total of [10] minutes coordinating, documenting, and providing care for this patient excluding time spent in the performance of separately billed services or time spent by another provider. Subjective 11/11/2025: Patient seen and examined in follow up today. Feeling well from a cardiac perspective. Offers no acute concerns. patient currently saturating well on 4-5LPM nasal cannula. Nursing staff has reported that when he takes the O2 off his saturations seem to quickly drop; however, he remains asymptomatic. Labs, vitals, diagnostics, telemetry and documentation reviewed. Telemetry reviewed showing Paced, rates 60's. Review of Systems Review of Systems: All systems reviewed & are unremarkable except as noted in HPI & below Physical Exam Constitutional: well developed and well nourished Neck: normal visual inspection and trachea midline Respiratory: normal respiratory effort, lungs clear to auscultation Auscultation: no crackles, no rales, no rhonchi and no wheezes Cardiovascular: Rate/Rhythm: regular rate and regular rhythm (paced) Heart Sounds: normal S1 and normal S2 Vessels: dorsalis pedis pulses present; no JVD Extremities: + edema (+2 BLE) Skin: no rashes, warm and dry Psychiatric: A+Ox3, euthymic affect Results & Data Vital Signs (Past 12 Hours) Vital Signs Temp Pulse Pulse Resp BP BP Pulse Ox 11/11/25 15:03 60 11/11/25 12:53 70 18 95 11/11/25 12:07 36.6 C 60 17 128/69 93 11/11/25 11:42 90 11/11/25 09:57 91 11/11/25 08:38 36.7 C 61 18 126/70 97 11/11/25 07:49 11/11/25 07:49 92 11/11/25 07:23 60 16 96 11/11/25 07:19 71 11/11/25 07:16 94 11/11/25 04:08 36.5 C 75 20 150/72 H 94 O2 Del Method O2 Flow Rate 11/11/25 15:03 11/11/25 12:53 Nasal Cannula 5 11/11/25 12:07 Nasal Cannula 5 11/11/25 11:42 Nasal Cannula 5 11/11/25 09:57 Nasal Cannula 6 11/11/25 08:38 Nasal Cannula 4 11/11/25 07:49 Oxymask 4 11/11/25 07:49 Oxymask 4 11/11/25 07:23 Oxymask 8 11/11/25 07:19 11/11/25 07:16 Oxymask 8 11/11/25 04:08 Oxymask 10 Laboratory Results CBC 11/11/25 Range/Units 05:14 WBC 5.88 (4.8-10.8) K/ul RBC 2.47 L (4.70-6.10) M/uL Hgb 7.8 L (14.0-18.0) g/dL Hct 24.9 L (42.0-52.0) % Plt Count 212 (130-400) K/uL Comprehensive Metabolic Panel 11/11/25 Range/Units 05:14 Sodium 141 (136-145) mmol/L Potassium 5.6 H (3.5-5.1) mmol/L Chloride 106 (98-107) mmol/L Carbon Dioxide 27 (21-32) mmol/L BUN 50 H (6-23) mg/dl Creatinine 3.01 H (0.6-1.4) mg/dl Glucose 222 H (70-99(Fasting)) mg/dl Calcium 8.7 (8.6-10.3) mg/dl Intake and Output 11/11/25 11/11/25 11/11/25 06:59 14:59 22:59 Intake Total 760 / 760 Output Total 250 / 500 550 / 550 Balance -250 / -260 -550 / 210 760 / 210 Intake: Oral 760 / 760 Output: Urine 250 / 500 550 / 550 Other: Weight 108.8 kg Weight Measurement Method Standing Scale PG Care Time/CCT Total # of Minutes Spent Total Time Spent with Patient: Total time spent is greater than 50% in coordination of care (as documented) at patient's floor/unit and/or counseling patient: Coding Level of Care Code 06659 SUB INP/OBS CARE 350MIN Diagnoses Acute on chronic diastolic heart failure with preserved ejection fraction I50.33 Acute on chronic hypoxic respiratory failure J96.21 Anemia D64.9 Anemia type: unspecified type CKD (chronic kidney disease), stage III N18.30 Time Spent (min) 30 (3) Anemia Anemia type: unspecified type Qualified Code(s): D64.9 - Anemia, unspecified
[2025-11-11 16:33] LABS: Anion Gap 6.0 (3-11); Blood Urea Nitrogen 57.0 mg/dl (6-23); Calcium 8.8 mg/dl (8.6-10.3); Carbon Dioxide 29.0 mmol/L (21-32); Chloride 104.0 mmol/L (98-107); Creatinine Clr Calc Pharmacy 27.5 ml/min; Glucose 264.0 mg/dl (70-99(Fasting)); Potassium 5.3 mmol/L (3.5-5.1); Sodium 139.0 mmol/L (136-145)
[2025-11-11] MEDS: INSULIN ASPART PER UNIT CHARGE SC SCH (20:20)
[2025-11-11] MEDS: SODIUM ZIRCONIUM CYCLOSILICATE 10 GM PACKET PO SCH (20:21)
[2025-11-12 06:46] LABS: Hematocrit (blood only) 23.7 % (42.0-52.0); Hemoglobin 7.4 g/dL (14.0-18.0); Immature Granulocytes # (auto) 0.06 K/uL (0.01-0.20); Immature Granulocytes % (auto) 0.6 %; Mean Corpuscular Hemoglobin 31.2 pg (25.0-34.0); Mean Corpuscular Volume 100.0 fL (80.0-100.0); Platelet Count 226 K/uL (130-400); RDW Standard Deviation 56.2 fL (36.4-46.3); Red Blood Count 2.37 M/uL (4.70-6.10); White Blood Count 10.49 K/ul (4.8-10.8)
[2025-11-12 07:11] LABS: Anion Gap 8.0 (3-11); Blood Urea Nitrogen 63.0 mg/dl (6-23); Calcium 8.8 mg/dl (8.6-10.3); Carbon Dioxide 29.0 mmol/L (21-32); Chloride 103.0 mmol/L (98-107); Creatinine Clr Calc Pharmacy 27.5 ml/min; Glucose 217.0 mg/dl (70-99(Fasting)); Magnesium 2.0 mg/dl (1.7-2.4); Potassium 5.1 mmol/L (3.5-5.1); Sodium 140.0 mmol/L (136-145)
[2025-11-12 07:14] LABS: Ovalocytes 1+; Polychromasia 1+
--- NOTE | 2025-11-12 08:25 | Hospitalist Progress Note ---
Date of Service November 12, 2025 Assessment & Plan (1) Acute on chronic diastolic heart failure with preserved ejection fraction: (2) Acute on chronic hypoxic respiratory failure: (3) Anemia: (4) CKD (chronic kidney disease), stage III: Plan This is a 70yo M with PMH of combined systolic and diastolic HF, type 2 diabetes, hypertension, COPD, heart block s/p pacemaker placement, paroxysmal atrial fibrillation, history of CVA, CKD 3, chronic hypoxic respiratory failure on 2L NC and other medical problems listed below who presents from home with increased shortness of breath and lower extremity swelling x 4 weeks. Acute on chronic respiratory failure Acute on chronic HFpEF Discharged from hospitalization at [place] for COPD exacerbation secondary to PNA in Jul 2025 with new 2L O2 requirement Patient presenting with worsening SOB, edema, increased O2 requirement CXR reviewed - cardiomegaly and cardiac pacemaker with evidence of congestive failure and pulmonary edema TTE on 10/26/25 with EF 50-54%, septal motion is abnormal consistent with right ventricular pacemaker, left atrium is moderately enlarged -> similar compared to prior in Nov 2023 Currently on 3L O2-> try to wean to baseline of 2L as able Initially on IV lasix 40mg daily (prescribed 20mg daily by PCP in Aug for LE edema) but have increased as per nephro to 80mg IV BID due to concurrent CHF and ATN Cardiology decreased amlodipine to 5mg daily Continue daily weights (111kg -> 109), I&Os, low salt diet COPD Patient denies fevers and cough (although nursing notes productive cough), no leukocytosis Exacerbation possible but presentation likely due to CHF more than COPD Continue home Spiriva inhaler, duonebs q6hr due to decreased air entry Follow up with Pulmonology as scheduled in November Trialed steroids but felt to be more consistent with cardiac etiology, discontinued Paroxysmal A fib History of complete heart block s/p dual chamber pacemaker (2018) Presence of Watchman left atrial appendage closure device Rate controlled No longer on anticoagulation since presence of Watchman left atrial appendage closure device Continue baby aspirin and Coreg Multifactorial anemia Hgb 8-9 since August, was closer to 10 prior to that Started on iron supplementation during hospitalization at [facility], has been taking TID PCP notes possible need for IV iron due to CKD and poor absorption of oral iron, s/p Venofer x 1 on 11/09 B12 and folate WNL Hgb 7.4 today -> giving add'l dose of Venofer 11/12 MARIAA 2/2 ATN superimposed on CKD [address] Bauman, feels Cr trend is 2/2 ATN in setting of underlying CKD, hypoxia, CHF Creatinine at baseline of ~2.0 During admission, Cr up-trending from 1.88 -> 2.88 -> 3.01 today Lasix increased from 40 to 80mg BID to increase urine output, per nephro Jardiance held, not on JETHRO, ARB or nsaids Strict I&Os Hyperkalemia K 5.6 -> 5.1 in setting of augmented Lasix, Lokelma added per nephro Plan to dc lokelma once K <5, monitor Type 2 diabetes A1c 6.7 Hold home agents , Jardiance placed on hold BSG ACHS and SSI while inpatient Glycemic consult placed due to hypoglycemic episode - appreciate recs for OP regimen DVT Prophylaxis: SCDs Code Status: FULL CODE PCP: Reji Love Disposition: PT/OT recommending rehab at discharge, patient initially hesitant but agreeable now Patient seen in collaboration with Dr. Rojas. Please see addendum. I spent a total of 45 minutes coordinating, documenting and providing care for this patient excluding time spent in the performance of separately billed services or time spent by another provider/QHP. Admission and Anticipated Discharge Date Admission Date: November 07, 2025 Supervising Physician Co-Signing Physician Notes Attending addendum: The patient was seen and examined in telemetry unit He was admitted with increasing shortness of breath and weakness and also leg swelling Noted to have combination of CHF on top of COPD and paroxysmal atrial fibrillation Has been feeling little better since admission Upon examination Sitting on a recliner without any acute distress Remains hemodynamically stable and requiring 3 L to maintain saturation Chestdecreased breath sounds bilaterally the lower area mainly with crackles at the bases. No wheezing HeartS1-S2 regular Abdomenbenign Extremitiesbilateral swelling of the legs with 1+ edema His admission labs, EKG and imaging studies reviewed Has a acute on chronic hypoxic respiratory failure complicated by acute on chronic diastolic heart failure , atrial fibrillation and also COPD Does not have any COPD exacerbationWill continue with nebulized bronchodilator and he is usual inhalers Has been getting intravenous Lasix for fluid overload/acute on chronic diastolic CHF He usually takes 2 L of oxygen at home and now requiring 3 which is expected to improve Agree with assessment and plan as outlined above by Batsheva SPEAR and take the full responsibility of care in the hospital Total time taken to see the patient, examining him, reviewing medications and labs and planning care was [address] Mary Rojas 11/09/2025 The patient was seen and examined in telemetry unit He was noted to be confused by the nursing staff but during examination he seemed quite oriented in time place and person Has weakness but denies any other significant symptoms His examination was unremarkable and stable hemodynamically He was convinced to take intravenous Venofer for iron deficiency anemia He has had physical therapy and recommended rehab therapy but he has been refusing Will coordinate with spring encaser for discharge planning Agree with assessment plan as outlined above by Anabel Nuñez PA-C and take the full responsibility of care in the hospital Total time taken to see the patient, examining him, explaining the results and also plan for care was [address] Mary Rojas 11/10/2025 The patient was seen and examined in telemetry unit He has been more wheezy and requiring more oxygen to maintain saturation Denies any shortness of breath at rest and remains hemodynamically stable Examination of the chest showed minimal wheezing but no crackles Will add Solu-Medrol 40 mg twice daily and continue current management Agree with assessment and plan as outlined above by Willow Nuñez PA-C and take the full responsibility of care in the hospital Total time taken to see the patient, examining him, reviewing the chart and medications and planning of care was [address] Mary Rojas 11/11/2025 The patient was seen and examined in telemetry unit in presence of the family members He has been stable from his shortness of breath following giving Lasix He will be getting more Lasix for the next day or 2 He denies any other significant symptoms Will continue PT and OT and most likely the patient will be going to short-term rehab and he seems to be agreeable This was discussed in detail with the family members the daughter and the [id number] case he qualifies for going home he will have home PT He is examinations remain unremarkable Agree with assessment and plan as outlined above by Teresa Dickerson PA-C and take the full responsible care in the hospital I spent a total of 20 minutes seeing the patient, going over the medications and planning of care and discussion with the family members and specialist DR Mary Rojas 11/11/2025 The patient was seen and examined in telemetry unit He has been feeling much better but has been requiring more oxygen to maintain saturation Urine output remains low with current dose of Lasix Remains otherwise free from any distress at rest Still has minimal edema involving the legs and bibasilar crackles Her labs reviewed, medications reviewed He will be getting increasing dose of Lasix IV 80 mg twice daily for more diuresis Will get a nocturnal pulse oximetry to document the requirement of oxygen at nighttime Continue PT OT and will need placement Agree with assessment and plan as outlined above by Teresa Dickerson PA-C and take the full responsibility of care in the hospital I spent a total of 15 minutes examining the patient, discussion about the findings and also planning for the care and discussion with the specialist Dr Mary Rojas Subjective Seen and examined in 461-2. Breathing slightly improved today per patient. Wants to get OOB and shower today. Urine output increased. No F/C, CP, palpitations, N/V, abd pain, dysuria, diarrhea or constipation. Review of Systems Review of Systems: At least ten systems reviewed and negative except as noted in the HPI. Physical Exam Physical Exam: Gen: WD/WN, NAD, sitting up at side of bed, appears chronically ill, A&O x3 HEENT: Normocephalic, atraumatic Lung: Clear to Auscultation bilaterally but diminished at bases Heart: Regular rate, regular rhythm Abdomen: Soft, NT, ND +BS x 4 Extremities: 1+edema Skin: Warm, no rash Results & Data Results & Data Vital Signs (Past 12 Hours) Vital Signs Temp Pulse Resp BP Pulse Ox O2 Del Method O2 Flow Rate 11/12/25 08:13 36.4 C L 66 17 102/56 L 93 Oxymask 5 11/12/25 07:36 61 17 99 Oxymask 7 11/12/25 07:18 100 Oxymask 6 11/12/25 07:08 Oxymask 11/12/25 03:24 36.5 C 65 20 125/68 92 Oxymask 12 11/12/25 00:32 60 16 97 Oxymask 10 11/11/25 22:56 36.5 C 64 20 132/87 97 Oxymask 10 Laboratory Results Short CBC 11/12/25 Range/Units 06:12 WBC 10.49 (4.8-10.8) K/ul Hgb 7.4 L (14.0-18.0) g/dL Hct 23.7 L (42.0-52.0) % Plt Count 226 (130-400) K/uL BMP 11/11/25 11/12/25 15:48 06:12 Sodium 139 140 Potassium 5.3 H 5.1 Chloride 104 103 Carbon Dioxide 29 29 BUN 57 H 63 H Creatinine 3.09 H 3.09 H Glucose 264 H 217 H Calcium 8.8 8.8 Diagnostic Findings Chest X-Ray 11/07/25 12:55 SINGLE VIEW CHEST CLINICAL HISTORY: Dyspnea FINDINGS: An AP, portable, semierect chest radiograph is compared to chest x-ray and chest CT dated 07/02/2015. A 2-lead cardiac pacemaker is in place. Leads project over the right atrial appendage and right ventricle. The heart is enlarged and no definite atherosclerotic calcification of the thoracic aorta. There is pulmonary vascular congestion with interstitial edema. Small pleural effusions are suspected with bibasilar consolidation. No pneumothorax is seen. The skeletal structures are osteopenic. The bony thorax is grossly intact. Arthritic change is seen in the shoulders. IMPRESSION: 1. Cardiomegaly and cardiac pacemaker with evidence of congestive failure and pulmonary edema. 2. Small pleural effusions with dependent consolidation. ACT 112: Negative or not required by law. Electronically signed by: Jeramy Orona M.D. 11/07/2025 1:12 PM Chest X-Ray 11/10/25 14:28 TWO VIEW CHEST CLINICAL HISTORY: Congestive heart failure.. FINDINGS: PA and lateral chest radiographs are compared to study dated 11/07/2025 and correlated with chest CT dated 07/02/2015. A 2-lead cardiac pacemaker is unchanged in position. A left atrial occlusion device is in place. The heart is enlarged noting atherosclerotic calcification of the thoracic aorta. There is pulmonary vascular congestion with mild interstitial edema. There are small pleural effusions with dependent consolidation. There is no pneumothorax. The skeletal structures are osteopenic. The bony thorax appears intact. Atherosclerotic calcification is seen in the carotid bulbs. IMPRESSION: 1. Cardiomegaly and cardiac pacemaker with evidence of congestive failure and mild pulmonary edema. 2. Small pleural effusions with dependent consolidation. ACT 112: Negative or not required by law. Electronically signed by: Jeramy Orona M.D. 11/10/2025 3:37 PM (3) Anemia Anemia type: unspecified type Qualified Code(s): D64.9 - Anemia, unspecified
[2025-11-12] MEDS: LANTUS PER UNIT CHARGE SQ SCH (08:42)
[2025-11-12] MEDS: SOD PHOSPHATE/SOD BIPHOSPHATE ENEMA 132 ML BTL PR STA (12:15)
[2025-11-12] MEDS: IRON SUCROSE 300 MG in SODIUM CHLORIDE 0.9% 250 ML IV ONE (14:02)
--- NOTE | 2025-11-12 14:12 | Cardiology Progress Note ---
Date of Service November 12, 2025 Assessment & Plan (1) Acute on chronic diastolic heart failure with preserved ejection fraction: (2) Acute on chronic hypoxic respiratory failure: (3) Anemia: (4) CKD (chronic kidney disease), stage III: Plan Patient is a 70 year old male admitted to [facility], [place] with symptoms of worsening SOB, edema, weight gain consistent with acute on chronic HFpEF and acute on chronic respiratory failure with hypoxia. Long history of underlying COPD/tobacco abuse and HFpEF. He does not take diuretics on a regular basis. Echo last week with preserved LVEF, no significant valvular disease Acute HFpEF -He received several doses of IV lasix since admission with good urine outputs. -Volume status improving -Repeat furosemide 40 mg IV x1 dose today -Monitor I+O's -Daily weight with standing scale -Monitor renal function - creatinine at 2.0 today (increase from 1.8 yesterday). Per review of outpatient labs, creatinine ranges 1.8-2.2 over the last few years. PAF - becoming more persistent -Medtronic pacemaker with recent interrogation showing 75% burden of afib. Rates controlled -Continue carvedilol -No longer on anticoagulation due to presence of watchman device -continue ASA COPD -Likely underlying exacerbation contributing to his dyspnea/hypoxia as well -continue nebs/inhalers 11/09/2025 Complex 70-year-old male admitted with mixed respiratory failure with decompensated congestive heart failure superimposed on chronic obstructive lung disease, anemia, chronic renal insufficiency Minimal response to IV diuretics with worsening creatinine. Recommendations: Reduce amlodipine to 5 mg/day to aid in lower extremity edema Would hold Jardiance given declining renal function Suspect requires higher dosing of diuretic but would request nephrology aid in management Continue oxygen supplementation Treat anemia as initiate 11/10/2025 Mixed respiratory failure with underlying pulmonary disease as well as decompensated congestive heart failure increasing lower extremity edema. Edema has improved with mild diuresis Amlodipine decreased due to edema,. Renal insufficiency has worsened with diuresis Recommendations continue to hold diuretics for time being Assess pulmonary status would not titrate oxygen to 6 L unless hypoxia persistent. Assess for CO2 retention 11/11/2025: -patient is resting comfortably without acute concern. O2 sats stable on 4-5LPM supplemental O2, but do drop quickly when he removes his Oxygen. remains asymptomatic. -Nephrology on consult and have restarted diuretics. Appreciate recommendations. 11/12/2025: -patient resting comfortably in bed without acute concerns. -Currently saturating 96% on 4LPM O2. O2 demand a combination of underlying pulmonary disease and CHF -Continues with BLE. Nephrology managing diuretics. Cr. remains elevated 3.0 Case has been discussed with Dr. Olsen. Further recommendations regarding plan of care as per her assessment. I spent a total of 30 minutes on the date of service in preparation, delivery, documentation of the care provided to the patient excluding any time spent in the performance of separately billed services. RAINER [facility] Cardiology [facility] Admission and Anticipated Discharge Date Admission Date: November 07, 2025 Supervising Physician Co-Signing Physician Notes I have reviewed the advanced practitioner's documentation on the date of service referenced in note, and I agree with, and take responsibility for the plan of care. I spent a total of [15] minutes coordinating, documenting, and providing care for this patient excluding time spent in the performance of separately billed services or time spent by another provider. 70-year-old male with known history of heart failure with preserved ejection fraction, chronic COPD, chronic kidney disease, paroxysmal atrial fibrillation, Medtronic pacemaker presents with decompensated heart failure. Heart failure with preserved ejection fraction with chronic kidney disease diuretics being managed by nephrology. A-fib rates are controlled Cardiology will sign off please call with questions Subjective 11/12/2025: Patient seen and examined in follow up today. Feeling well from a cardiac perspective. He continues with hypervolemia and requiring supplemental O2 via nasal cannula but denies any shortness of breath. Labs, vitals, diagnostics, telemetry and documentation reviewed. Telemetry reviewed showing Paced 60's Review of Systems Review of Systems: All systems reviewed & are unremarkable except as noted in HPI & below Physical Exam Constitutional: well developed and well nourished Neck: normal visual inspection and trachea midline Respiratory: normal respiratory effort, lungs clear to auscultation Auscultation: no crackles, no rales, no rhonchi and no wheezes Cardiovascular: Rate/Rhythm: regular rate and regular rhythm (paced) Heart Sounds: normal S1 and normal S2 Vessels: dorsalis pedis pulses present; no JVD Extremities: + edema (+2 BLE) Skin: no rashes, warm and dry Psychiatric: A+Ox3, euthymic affect Results & Data Vital Signs (Past 12 Hours) Vital Signs Temp Pulse Pulse Resp BP Pulse Ox O2 Del Method 11/12/25 13:54 68 11/12/25 12:30 62 16 96 Nasal Cannula 11/12/25 08:48 60 11/12/25 08:13 36.4 C L 66 17 102/56 L 93 Oxymask 11/12/25 07:36 61 17 99 Oxymask 11/12/25 07:18 100 Oxymask 11/12/25 07:08 Oxymask 11/12/25 03:24 36.5 C 65 20 125/68 92 Oxymask O2 Flow Rate 11/12/25 13:54 11/12/25 12:30 4 11/12/25 08:48 11/12/25 08:13 5 11/12/25 07:36 7 11/12/25 07:18 6 11/12/25 07:08 11/12/25 03:24 12 PG Care Time/CCT Total # of Minutes Spent Total Time Spent with Patient: Total time spent is greater than 50% in coordination of care (as documented) at patient's floor/unit and/or counseling patient: Coding Level of Care Code 72805 SUB INP/OBS CARE 3/50MIN Diagnoses Acute on chronic diastolic heart failure with preserved ejection fraction I50.33 Acute on chronic hypoxic respiratory failure J96.21 Anemia D64.9 Anemia type: unspecified type CKD (chronic kidney disease), stage III N18.30 Time Spent (min) 30 (3) Anemia Anemia type: unspecified type Qualified Code(s): D64.9 - Anemia, unspecified
--- NOTE | 2025-11-12 14:35 | Nephrology Progress Note ---
Date of Service November 12, 2025 Assessment & Plan Admission and Anticipated Discharge Date Admission Date: November 07, 2025 Subjective Assessment & Plan (1) MARIAA (acute kidney injury): Creat has been rising last few days from 1.88 to 2.88 to 3 now. However this is not from lasix--he has had hardly any diuresis--on average about 1000 ml per day of urine is hardly diuresis. even now has clear e/o fluid overload. MARIAA is sec to ATN in the setting of CHF/Hypoxia/resp failure. this is why we are seeing clear pattern of daily rise in creatinine. Creat today same as yesterday--around 3--so likely ATN has peaked with underlying CKD he is prone for that. Not much urine with 40 iv--raise the dose to 80 bid.--much more urine with that K is better now--5.1 Check UA and also urine PCR--1 gm proteinuria and active sediment. making urine and not really acting like Obstruction. Stop jardiance, JETHRO, ARB, NSAID if any. Avoid contrast agents. daily labs. I and O charting.\ (2) CKD (chronic kidney disease), stage III: baseline CKD 3B from multiple issues. Current creat higher than baseline of around 2. (3) Acute on chronic hypoxic respiratory failure: Sig decline since pneumonia adx in . even now needing high 02. Not a lot of Diuresis so far. Consider CT chest also to evaluate for underlying Pulm issues also. but for now will assume mainly related with CHF S--no new issues. still SOB with exertion. Making urine --more with 80 iv ROS--12 Systems reviewed and is otherwise negative. See HPI Physical Exam Physical Exam: Elderly male, some resp distress. Weak. AAox 3 HEENT: Normocephalic, atraumatic, mucous membranes moist. Lung: b/l prolonged exp, wheeze and some rhonchi heard Heart: Regular rate, regular rhythm, no murmurs Abdomen: Soft, NT Extremities: +1 lower ext edema Skin: Warm, no rash, negative turgor. Results & Data Vital Signs (Past 12 Hours) Vital Signs Temp Pulse Pulse Resp BP Pulse Ox O2 Del Method 11/12/25 13:54 68 11/12/25 12:30 62 16 96 Nasal Cannula 11/12/25 08:48 60 11/12/25 08:13 36.4 C L 66 17 102/56 L 93 Oxymask 11/12/25 07:36 61 17 99 Oxymask 11/12/25 07:18 100 Oxymask 11/12/25 07:08 Oxymask 11/12/25 03:24 36.5 C 65 20 125/68 92 Oxymask O2 Flow Rate 11/12/25 13:54 11/12/25 12:30 4 11/12/25 08:48 11/12/25 08:13 5 11/12/25 07:36 7 11/12/25 07:18 6 11/12/25 07:08 11/12/25 03:24 12
[2025-11-13 06:07] LABS: Hematocrit (blood only) 22.7 % (42.0-52.0); Hemoglobin 7.3 g/dL (14.0-18.0); Mean Corpuscular Hemoglobin 31.6 pg (25.0-34.0); Mean Corpuscular Volume 98.3 fL (80.0-100.0); Platelet Count 213 K/uL (130-400); RDW Standard Deviation 54.5 fL (36.4-46.3); Red Blood Count 2.31 M/uL (4.70-6.10); White Blood Count 7.59 K/ul (4.8-10.8)
[2025-11-13 06:29] LABS: Anion Gap 8.0 (3-11); Calcium 8.6 mg/dl (8.6-10.3); Carbon Dioxide 31.0 mmol/L (21-32); Chloride 102.0 mmol/L (98-107); Magnesium 1.8 mg/dl (1.7-2.4); Potassium 4.2 mmol/L (3.5-5.1); Sodium 141.0 mmol/L (136-145)
[2025-11-13 06:35] LABS: Blood Urea Nitrogen 69.0 mg/dl (6-23); Creatinine Clr Calc Pharmacy 25.9 ml/min; Glucose 146.0 mg/dl (70-99(Fasting))
--- NOTE | 2025-11-13 08:32 | Hospitalist Progress Note ---
Date of Service November 13, 2025 Assessment & Plan (1) Acute on chronic diastolic heart failure with preserved ejection fraction: (2) Acute on chronic hypoxic respiratory failure: (3) Anemia: (4) CKD (chronic kidney disease), stage III: Plan This is a 70yo M with PMH of combined systolic and diastolic HF, type 2 diabetes, hypertension, COPD, heart block s/p pacemaker placement, paroxysmal atrial fibrillation, history of CVA, CKD 3, chronic hypoxic respiratory failure on 2L NC and other medical problems listed below who presents from home with increased shortness of breath and lower extremity swelling x 4 weeks. Acute on chronic respiratory failure Acute on chronic HFpEF Discharged from hospitalization at [facility] for COPD exacerbation secondary to PNA in Jul 2025 with new 2L O2 requirement Patient presenting with worsening SOB, edema, increased O2 requirement CXR reviewed - cardiomegaly and cardiac pacemaker with evidence of congestive failure and pulmonary edema TTE on 10/26/25 with EF 50-54%, septal motion is abnormal consistent with right ventricular pacemaker, left atrium is moderately enlarged -> similar compared to prior in Nov 2023 Currently on 3L O2-> try to wean to baseline of 2L as able Initially on IV lasix 40mg daily (prescribed 20mg daily by PCP in Aug for LE edema) but have increased as per nephro to 80mg IV BID due to concurrent CHF and ATN-> decreased to 60mg IV BID today Cardiology decreased amlodipine to 5mg daily Continue daily weights (111kg -> 108), I&Os (-3.8L cumulative), low salt diet COPD Exacerbation possible but presentation likely due to CHF more than COPD Continue home Spiriva inhaler, duonebs q6hr due to decreased air entry Follow up with Pulmonology as scheduled in November Trialed steroids but felt to be more consistent with cardiac etiology, discontinued Paroxysmal A fib History of complete heart block s/p dual chamber pacemaker (2018) Presence of Watchman left atrial appendage closure device Rate controlled No longer on anticoagulation since presence of Watchman left atrial appendage closure device Continue baby aspirin and Coreg Multifactorial anemia Hgb 8-9 since August, was closer to 10 prior to that Started on iron supplementation during hospitalization at [facility], has been taking TID PCP notes possible need for IV iron due to CKD and poor absorption of oral iron, s/p Venofer x 1 on 11/09 B12 and folate WNL Hgb 7.3 today -> continue to monitor MARIAA 2/2 ATN superimposed on CKD [address] Bauman, feels Cr trend is 2/2 ATN in setting of underlying CKD, hypoxia, CHF Creatinine at baseline of ~2.0 During admission, Cr up-trending from 1.88 -> 2.88 -> 3.01-> 3.27 today Lasix increased from 40 to 80mg BID to increase urine output with good response, decrease to 60mg BID, per nephro Jardiance held, not on JETHRO, ARB or nsaids Strict I&Os Hyperkalemia-> resolved K 5.6-> resolved with lokelma Stable at 4.2 today Type 2 diabetes A1c 6.7 Hold home agents , Jardiance placed on hold BSG ACHS and SSI while inpatient Glycemic consult placed due to hypoglycemic episode - appreciate recs for OP regimen DVT Prophylaxis: SCDs Code Status: FULL CODE PCP: Reji Love Disposition: PT/OT recommending rehab at discharge, patient initially hesitant but agreeable now Patient seen in collaboration with Dr. Rojas. Please see addendum. I spent a total of 60 minutes coordinating, documenting and providing care for this patient excluding time spent in the performance of separately billed services or time spent by another provider/QHP. Admission and Anticipated Discharge Date Admission Date: November 07, 2025 Supervising Physician Co-Signing Physician Notes Attending addendum: The patient was seen and examined in telemetry unit He was admitted with increasing shortness of breath and weakness and also leg swelling Noted to have combination of CHF on top of COPD and paroxysmal atrial f ibrillation Has been feeling little better since admission Upon examination Sitting on a recliner without any acute distress Remains hemodynamically stable and requiring 3 L to maintain saturation Chestdecreased breath sounds bilaterally the lower area mainly with crackles at the bases. No wheezing HeartS1-S2 regular Abdomenbenign Extremitiesbilateral swelling of the legs with 1+ edema His admission labs, EKG and imaging studies reviewed Has a acute on chronic hypoxic respiratory failure complicated by acute on chronic diastolic heart failure , atrial fibrillation and also COPD Does not have any COPD exacerbationWill continue with nebulized bronchodilator and he is usual inhalers Has been getting intravenous Lasix for fluid overload/acute on chronic diastolic CHF He usually takes 2 L of oxygen at home and now requiring 3 which is expected to improve Agree with assessment and plan as outlined above by Batsheva SPEAR and take the full responsibility of care in the hospital Total time taken to see the patient, examining him, reviewing medications and labs and planning care was [address] Mary Rojas 11/09/2025 The patient was seen and examined in telemetry unit He was noted to be confused by the nursing staff but during examination he seemed quite oriented in time place and person Has weakness but denies any other significant symptoms His examination was unremarkable and stable hemodynamically He was convinced to take intravenous Venofer for iron deficiency anemia He has had physical therapy and recommended rehab therapy but he has been refusing Will coordinate with binder caser for discharge planning Agree with assessment plan as outlined above by Anabel Nuñez PA-C and take the full responsibility of care in the hospital Total time taken to see the patient, examining him, explaining the results and also plan for care was [address] Mary Rojas 11/10/2025 The patient was seen and examined in telemetry unit He has been more wheezy and requiring more oxygen to maintain saturation Denies any shortness of breath at rest and remains hemodynamically stable Examination of the chest showed minimal wheezing but no crackles Will add Solu-Medrol 40 mg twice daily and continue current management Agree with assessment and plan as outlined above by Willow Nuñez PA-C and take the full responsibility of care in the hospital Total time taken to see the patient, examining him, reviewing the chart and medications and planning of care was [address] Mary Rojas 11/11/2025 The patient was seen and examined in telemetry unit in presence of the family members He has been stable from his shortness of breath following giving Lasix He will be getting more Lasix for the next day or 2 He denies any other significant symptoms Will continue PT and OT and most likely the patient will be going to short-term rehab and he seems to be agreeable This was discussed in detail with the family members the daughter and the [id number] case he qualifies for going home he will have home PT He is examinations remain unremarkable Agree with assessment and plan as outlined above by Teresa Dickerson PA-C and take the full responsible care in the hospital I spent a total of 20 minutes seeing the patient, going over the medications and planning of care and discussion with the family members and specialist DR Mary Rojas 11/12/2025 The patient was seen and examined in telemetry unit He has been feeling much better but has been requiring more oxygen to maintain saturation Urine output remains low with current dose of Lasix Remains otherwise free from any distress at rest Still has minimal edema involving the legs and bibasilar crackles Her labs reviewed, medications reviewed He will be getting increasing dose of Lasix IV 80 mg twice daily for more diuresis Will get a nocturnal pulse oximetry to document the requirement of oxygen at nighttime Continue PT OT and will need placement Agree with assessment and plan as outlined above by Teresa Dickerson PA-C and take the full responsibility of care in the hospital I spent a total of 15 minutes examining the patient, discussion about the findings and also planning for the care and discussion with the specialist Dr Mary Rojas 11/13/2025 Patient was seen and examined in telemetry unit He has been stable but is still requiring 3 L to maintain saturation Blood pressure remains on the lower side at 95/54 but asymptomatic Denies any other significant symptoms His physical examination remains unremarkable Will continue current doses of Lasix for more diuresis as per the head sawyer and the criminal records technician Agree with assessment plan as outlined above by RAINER Rhoades and take the full responsibility of care in the hospital We spent a total of 10 minutes examining the patient, going over the medications and management plan and also discussion with the specialist Dr Mary Rojas Subjective Patient seen resting in bed Reports he is doing well Still having SOB with walking Reports increased urine output Denies dizziness, chest pain, abdominal pain, N/V/D Review of Systems Review of Systems: All systems reviewed & are unremarkable except as noted in HPI & below Physical Exam Physical Exam: General/Psych: obese, sitting up in bed, NAD, conversing easily Head: normocephalic, atraumatic Eyes: normal inspection, PERRL, conjunctivae pink Neck: normal visual inspection, trachea midline Respiratory: normal respiratory effort, lungs with decreased air entry and slight crackles, no wheezing, no accessory muscle use Cardiovascular: regular rate and rhythm, +murmur Extremities: no cyanosis or clubbing, normal peripheral pulses, 2+ BLE edema Abdomen/GI: normal bowel sounds, soft, nontender Neurologic/MSK: A+Ox3, motor strength 5/5, moves all extremities Skin: no rashes, normal color, warm and dry Results & Data Results & Data Vital Signs (Past 12 Hours) Vital Signs Temp Pulse Pulse Pulse Resp BP BP 11/13/25 08:00 62 11/13/25 07:36 62 18 11/13/25 07:31 36.3 C L 62 18 124/65 11/13/25 07:18 11/13/25 03:26 11/13/25 03:21 36.4 C L 60 20 108/62 11/13/25 02:45 11/12/25 22:26 65 11/12/25 22:16 60 11/12/25 22:00 36.5 C 63 18 133/67 Pulse Ox Pulse Ox O2 Del Method O2 Del Method O2 Flow Rate O2 Flow Rate 11/13/25 08:00 11/13/25 07:36 95 Nasal Cannula 4 11/13/25 07:31 95 Nasal Cannula 4 11/13/25 07:18 Nasal Cannula 3 11/13/25 03:26 90 Nasal Cannula 4 11/13/25 03:21 92 Nasal Cannula 4 11/13/25 02:45 96 Oxymask 11/12/25 22:26 90 Nasal Cannula 4 11/12/25 22:16 84 L Room Air 11/12/25 22:00 96 Nasal Cannula 4 Laboratory Results Short CBC 11/13/25 Range/Units 05:47 WBC 7.59 (4.8-10.8) K/ul Hgb 7.3 L (14.0-18.0) g/dL Hct 22.7 L (42.0-52.0) % Plt Count 213 (130-400) K/uL BMP 11/13/25 05:47 Sodium 141 Potassium 4.2 Chloride 102 Carbon Dioxide 31 BUN 69 H Creatinine 3.27 H Glucose 146 H Calcium 8.6 I have independently reviewed and interpreted patient's labs including CBC and BMP Medications Administered Current Inpatient Medications Acetaminophen (Acetaminophen 325 Mg Tab) 650 mg PO Q4H PRN PRN Reason: Pain or Fever Stop: 12/07/25 16:31 Albuterol (Albut/Ipratrop 3mg/0.5mg Neb 3 Ml Vial) 3 ml NEB Q6R [facility]; Protocol Stop: 12/08/25 12:59 Last Admin: 11/13/25 13:09 Dose: 3 ml Amlodipine Besylate (Amlodipine Besylate 5 Mg Tab) 5 mg PO DAILY [facility] Stop: 12/10/25 08:59 Last Admin: 11/13/25 08:44 Dose: 5 mg Ascorbic Acid (Ascorbic Acid 500 Mg Tab) 500 mg PO DAILY [facility] Stop: 12/08/25 08:59 Last Admin: 11/13/25 08:45 Dose: 500 mg Aspirin (Aspirin 81 Mg Chew) 81 mg PO DAILY [facility] Stop: 12/08/25 08:59 Last Admin: 11/13/25 08:48 Dose: 81 mg Atorvastatin Calcium (Atorvastatin 40 Mg Tab) 40 mg PO DAILY [facility] Stop: 12/08/25 08:59 Last Admin: 11/13/25 08:49 Dose: 40 mg Carvedilol (Carvedilol 25 Mg Tab) 25 mg PO BIDM [facility] Stop: 12/07/25 20:59 Last Admin: 11/13/25 08:45 Dose: 25 mg Cetirizine HCl (Cetirizine Hcl 10 Mg Tablet) 10 mg PO DAILY [facility] Stop: 12/08/25 08:59 Last Admin: 11/13/25 08:49 Dose: 10 mg Dextrose (Dextrose 50% 50 Ml Syringe) 25 - 50 ml IV UD PRN; Protocol PRN Reason: Hypoglycemia Protocol Stop: 12/07/25 15:25 Famotidine (Famotidine 20 Mg Tab) 20 mg PO BID [facility] Stop: 12/07/25 20:59 Last Admin: 11/13/25 08:48 Dose: 20 mg Ferrous Sulfate (Ferrous Sulfate 325 Mg Tab) 325 mg PO DAILY [facility] Stop: 12/08/25 08:59 Last Admin: 11/13/25 08:45 Dose: 325 mg Folic Acid (Folic Acid 1 Mg Tab) 1 mg PO DAILY [facility] Stop: 12/08/25 08:59 Last Admin: 11/13/25 08:45 Dose: 1 mg Furosemide (Furosemide 40 Mg/4 Ml Vial) 60 mg IV BID [facility] Stop: 12/13/25 20:59 Glucagon (Glucagon For Inj 1 Mg Vial) 1 mg SQ UD PRN; Protocol PRN Reason: Hypoglycemia Protocol Stop: 12/07/25 15:25 Glucose (Glucose 40% Gel 15 Gm Tube) 15 - 30 gm PO UD PRN; Protocol PRN Reason: Hypoglycemia Protocol Stop: 12/07/25 15:25 Glucose (Glucose 10 Tab/Tube) 4 - 8 tab PO UD PRN; Protocol PRN Reason: Hypoglycemia Protocol Stop: 12/07/25 15:25 Insulin Aspart (Insulin Aspart Per Unit Charge) 0 units SC ACHS [facility] Stop: 12/11/25 20:59 Last Admin: 11/13/25 12:13 Dose: 6 units Insulin Glargine (Lantus Per Unit Charge) 15 units SQ DAILY [facility] Stop: 12/12/25 08:59 Last Admin: 11/13/25 08:44 Dose: 15 units Miscellaneous (Carbohydrates For Hypoglycemia ) 15 - 30 gm PO UD PRN PRN Reason: Hypoglycemia Protocol Stop: 12/07/25 15:25 Last Admin: 11/08/25 02:00 Dose: 30 gm Miscellaneous Information (Pharmacy Glycemic Mgmt Consult) 1 each N/A UD PRN; Protocol PRN Reason: Consult Stop: 12/07/25 16:15 Montelukast Sodium (Montelukast Sodium 10 Mg Tablet) 10 mg PO HS [facility] Stop: 12/07/25 20:59 Last Admin: 11/12/25 20:52 Dose: 10 mg Ondansetron HCl (Ondansetron Inj 2 Mg/Ml 2 Ml Vial) 4 mg IV Q6H PRN PRN Reason: Nausea Stop: 12/07/25 16:31 Pantoprazole Sodium (Pantoprazole 40 Mg Tab) 40 mg PO DAILY [facility] Stop: 12/08/25 08:59 Last Admin: 11/13/25 08:45 Dose: 40 mg Polyethylene Glycol (Polyethylene (Miralax) 17 Gm Pack) 17 gm PO DAILY PRN PRN Reason: Constipation Stop: 12/07/25 16:31 Umeclidinium [place] (Umeclidinium [place] 62.5mcg/Blister 7 Puffs/Inhaler) 1 puffs INH DAILY [facility] Stop: 12/08/25 08:59 Last Admin: 11/13/25 08:44 Dose: 1 puffs (3) Anemia Anemia type: unspecified type Qualified Code(s): D64.9 - Anemia, unspecified
--- NOTE | 2025-11-13 11:32 | Nephrology Progress Note ---
Date of Service November 13, 2025 Assessment & Plan Admission and Anticipated Discharge Date Admission Date: November 07, 2025 Subjective Assessment & Plan (1) MARIAA (acute kidney injury): Creat has been rising last few days from 1.88 to 2.88 to 3 now. However this is not from lasix--he has had hardly any diuresis--on average about 1000 ml per day of urine is hardly diuresis. even now has clear e/o fluid overload. MARIAA is sec to ATN in the setting of CHF/Hypoxia/resp failure. this is why we are seeing clear pattern of daily rise in creatinine. Creat today went up again a bit to 3.27. with underlying CKD he is prone for that. Not much urine with 40 iv--raised the dose to 80 bid.--much more urine with that 2900 ml yesterday. K is normal now. Will lower the lasix dose to 60 iv bid. Check UA and also urine PCR--1 gm proteinuria and active sediment. making urine and not really acting like Obstruction. Stop jardiance, JETHRO, ARB, NSAID if any. Avoid contrast agents. daily labs. I and O charting.\ (2) CKD (chronic kidney disease), stage III: baseline CKD 3B from multiple issues. Current creat higher than baseline of around 2. (3) Acute on chronic hypoxic respiratory failure: Sig decline since pneumonia adx in . even now needing high 02. Not a lot of Diuresis so far. Consider CT chest also to evaluate for underlying Pulm issues also. but for now will assume mainly related with CHF S--no new issues. still SOB with exertion. Making urine --more with 80 iv--2900 ml yesterday ROS--12 Systems reviewed and is otherwise negative. See HPI Physical Exam Physical Exam: Elderly male, some resp distress. Weak. AAox 3 HEENT: Normocephalic, atraumatic, mucous membranes moist. Lung: b/l prolonged exp, wheeze and some rhonchi heard Heart: Regular rate, regular rhythm, no murmurs Abdomen: Soft, NT Extremities: +1 lower ext edema Skin: Warm, no rash, negative turgor. Results & Data Vital Signs (Past 12 Hours) Vital Signs Temp Pulse Pulse Resp BP BP Pulse Ox 11/13/25 08:00 62 11/13/25 07:36 62 18 95 11/13/25 07:31 36.3 C L 62 18 124/65 95 11/13/25 07:18 11/13/25 03:26 11/13/25 03:21 36.4 C L 60 20 108/62 92 11/13/25 02:45 Pulse Ox O2 Del Method O2 Del Method O2 Flow Rate O2 Flow Rate 11/13/25 08:00 11/13/25 07:36 Nasal Cannula 4 11/13/25 07:31 Nasal Cannula 4 11/13/25 07:18 Nasal Cannula 3 11/13/25 03:26 90 Nasal Cannula 4 11/13/25 03:21 Nasal Cannula 4 11/13/25 02:45 96 Oxymask
--- NOTE | 2025-11-13 12:25 | Pharmacy Report ---
Pharmacy Glycemic Short Note 2 - Date of Service November 13, 2025 - Glycemic Short BSG Results (Last 24 hours): 11/12/25 11/12/25 11/13/25 16:58 20:37 05:47 Glucose 146 H POC Glucose 145 H 180 H 11/13/25 11/13/25 08:11 12:06 Glucose POC Glucose 159 H 167 H OUTPATIENT ANTIDIABETIC REGIMEN: * Tresiba 18 units SQ Q AM * Novolog 4 units SQ TID with meals * Jardiance 25mg PO daily * Ozempic 0.5mg SQ weekly HbA1c: 6.7% on 11/08/25 ASSESSMENT: 11/13: * Ole received a total of 31 units of insulin yesterday (15 units were basal and 16 units were bolus). Despite increased doses of insulin, most BSGs were still above goal yesterday. * Fasting BS was 159mg/dL this morning. Lantus dose just increased yesterday and bolus insulin parameters adjust yesterday also so will continue both without change for now. 11/10: * Patient received total of 13 units of insulin yesterday, of which 5 units were basal * Fasting BSG 130 mg/dL - continue same * No change to CF/CR. Will monitor Scr as continuing to trend upward, may need to loosen insulin parameters in future 11/09/25: * Blood sugars elevated yesterday with correction factor only, will add carb ratio today * Fasting blood sugar of 143 mg/dL this morning - will restart low-dose basal insulin today * Worsening MARIAA (SCr 2.54 mg/dL today) - empagliflozin given this AM, but now on hold 11/08/25: * Ole is a 70 year old male who was presented yesterday with increased shortness of breath and lower extremity swelling x 4 weeks. Pharmacy was consulted for glycemic management while he is admitted. * Patient was hypoglycemic on admit (BSG 52 mg/dL) and dropped to 42mg/dL at HS. Unclear what/how much insulin was used prior to arrival. A conservative insulin regimen was started at that time utilizing only the correction factor (no carb coverage). * Fasting BSG was still below goal this morning. Will not start him on basal insulin at this time and will continue bolus insulin regimen without change. PLAN FOR INPATIENT GLYCEMIC CONTROL: * Empagliflozin 25 mg PO daily (on hold currently due to MARIAA) * Basal insulin * Lantus 15 units SC daily * Bolus insulin * NovoLog per scale ACHS or Q6hrs while NPO * Goal Range: Low 120 mg/dL - High 180 mg/dL * Correction Factor: 40 mg/dL/unit * Nutritional / Prandial insulin per carb ratio: 10 g/unit
[2025-11-13] MEDS: FUROSEMIDE 40 MG/4 ML VIAL IV SCH (20:22)
[2025-11-14 06:22] LABS: Hematocrit (blood only) 23.0 % (42.0-52.0); Hemoglobin 7.2 g/dL (14.0-18.0); Mean Corpuscular Hemoglobin 30.6 pg (25.0-34.0); Mean Corpuscular Volume 97.9 fL (80.0-100.0); Platelet Count 209 K/uL (130-400); RDW Standard Deviation 55.5 fL (36.4-46.3); Red Blood Count 2.35 M/uL (4.70-6.10); White Blood Count 7.67 K/ul (4.8-10.8)
[2025-11-14 06:48] LABS: Anion Gap 8.0 (3-11); Blood Urea Nitrogen 71.0 mg/dl (6-23); Calcium 8.1 mg/dl (8.6-10.3); Carbon Dioxide 33.0 mmol/L (21-32); Chloride 101.0 mmol/L (98-107); Creatinine Clr Calc Pharmacy 27.6 ml/min; Glucose 97.0 mg/dl (70-99(Fasting)); Magnesium 1.7 mg/dl (1.7-2.4); Potassium 3.8 mmol/L (3.5-5.1); Sodium 142.0 mmol/L (136-145)
[2025-11-14] MEDS: MAGNESIUM SULFATE / D5W 1 GM/100 ML BAG IV SCH (08:27)
[2025-11-14] MEDS: POTASSIUM CHLORIDE CRTAB 20 MEQ TABCR PO STA (08:27)
[2025-11-14] MEDS: LANTUS PER UNIT CHARGE SQ SCH (08:52)
--- NOTE | 2025-11-14 11:13 | Nephrology Progress Note ---
Date of Service November 14, 2025 Assessment & Plan Admission and Anticipated Discharge Date Admission Date: November 07, 2025 Subjective Assessment & Plan (1) MARIAA (acute kidney injury): Creat was rising from 1.88 to 2.88 to 3 now. However this is not from lasix--he has had hardly any diuresis--on average about 1000 ml per day of urine is hardly diuresis. even now has clear e/o fluid overload. MARIAA is sec to ATN in the setting of CHF/Hypoxia/resp failure. this is why we are seeing clear pattern of daily rise in creatinine. Creat went up again a bit to 3.27 but today is down to 3.07 so overall stable around 3 for many days now with underlying CKD/CHF/COPD he is prone for ATN. K is normal now. Continue lasix dose to 60 iv bid. Can switch to oral torsemide 60 bid from tomorrow Check UA and also urine PCR--1 gm proteinuria and active sediment. making urine and not really acting like Obstruction. Stop jardiance, JETHRO, ARB, NSAID if any. Avoid contrast agents. daily labs. I and O charting. Also anemia quite significant---give another dose of venofer 300 x 1 today. and procrit 25209 units sub q today. he will need anemia clinic mx through nephrology. (2) CKD (chronic kidney disease), stage III: baseline CKD 3B from multiple issues. Current creat higher than baseline of around 2. (3) Acute on chronic hypoxic respiratory failure: Sig decline since pneumonia adx in . even now needing high 02. Not a lot of Diuresis so far. Consider CT chest also to evaluate for underlying Pulm issues also. but for now will assume mainly related with CHF S--no new issues. still SOB with exertion. Making urine. wt down by few kilos ROS--12 Systems reviewed and is otherwise negative. See HPI Physical Exam Physical Exam: Elderly male, some resp distress. Weak. AAox 3 HEENT: Normocephalic, atraumatic, mucous membranes moist. Lung: b/l prolonged exp, wheeze and some rhonchi heard Heart: Regular rate, regular rhythm, no murmurs Abdomen: Soft, NT Extremities: +1 lower ext edema Skin: Warm, no rash, negative turgor. Results & Data Vital Signs (Past 12 Hours) Vital Signs Temp Pulse Pulse Resp BP BP Pulse Ox 11/14/25 10:47 11/14/25 09:08 36.7 C 60 17 106/61 97 11/14/25 07:43 60 11/14/25 07:07 60 18 96 11/14/25 03:09 36.3 C L 60 19 123/68 93 11/14/25 00:08 60 16 96 O2 Del Method O2 Flow Rate 11/14/25 10:47 Nasal Cannula 4 11/14/25 09:08 Nasal Cannula 5 11/14/25 07:43 11/14/25 07:07 Nasal Cannula 4 11/14/25 03:09 Nasal Cannula 4 11/14/25 00:08 Nasal Cannula 6
--- NOTE | 2025-11-14 11:19 | Hospitalist Progress Note ---
Date of Service November 14, 2025 Assessment & Plan (1) Acute on chronic diastolic heart failure with preserved ejection fraction: (2) Acute on chronic hypoxic respiratory failure: (3) Anemia: (4) CKD (chronic kidney disease), stage III: Plan This is a 70yo M with PMH of combined systolic and diastolic HF, type 2 diabetes, hypertension, COPD, heart block s/p pacemaker placement, paroxysmal atrial fibrillation, history of CVA, CKD 3, chronic hypoxic respiratory failure on 2L NC and other medical problems listed below who presents from home with increased shortness of breath and lower extremity swelling x 4 weeks. Acute on chronic respiratory failure Acute on chronic HFpEF Discharged from hospitalization at [facility] for COPD exacerbation secondary to PNA in Jul 2025 with new 2L O2 requirement Patient presenting with worsening SOB, edema, increased O2 requirement CXR reviewed - cardiomegaly and cardiac pacemaker with evidence of congestive failure and pulmonary edema TTE on 10/26/25 with EF 50-54%, septal motion is abnormal consistent with right ventricular pacemaker, left atrium is moderately enlarged -> similar compared to prior in Nov 2023 Currently on increased O2-> try to wean to baseline of 2L as able Cardiology decreased amlodipine to 5mg daily Ongoing diuresis per Nephrology recs-> switch to torsemide 60mg PO tomorrow Continue daily weights (111kg -> 108), I&Os (-5.8L cumulative), low salt diet COPD Exacerbation possible but presentation likely due to CHF more than COPD Continue home Spiriva inhaler, duonebs q6hr due to decreased air entry Follow up with Pulmonology as scheduled in November Trialed steroids but felt to be more consistent with cardiac etiology, discontinued Multifactorial anemia Hgb 8-9 since August, was closer to 10 prior to that Started on iron supplementation during hospitalization at [facility], has been taking TID PCP notes possible need for IV iron due to CKD and poor absorption of oral iron, s/p Venofer x 1 on 11/09 B12 and folate WNL Hgb persisting around 7.0 s/p IV venofer x3 doses and Epoetin Mukesh x1 on 11/[address] Bauman recommends anemia clinic follow up MARIAA 2/2 ATN superimposed on CKD [address] Bauman, feels Cr trend is 2/2 ATN in setting of underlying CKD, hypoxia, CHF Creatinine baseline of ~2.0 During admission, Cr up-trending from 1.88 -> 2.88 -> 3.01-> 3.27-> 3.07 today Jardiance held, not on JETHRO, ARB or nsaids Strict I&Os Paroxysmal A fib History of complete heart block s/p dual chamber pacemaker (2019) Presence of Watchman left atrial appendage closure device Rate controlled No longer on anticoagulation since presence of Watchman left atrial appendage closure device Continue baby aspirin and Coreg Hyperkalemia-> resolved Resolved with lokelma Type 2 diabetes A1c 6.7 Hold home agents, Jardiance placed on hold BSG ACHS and SSI while inpatient Glycemic consult DVT Prophylaxis: SCDs due to anemia Code Status: FULL CODE PCP: Reji Love Disposition: dc to [facility] when bed available Patient seen in collaboration with Dr. Rojas. Please see addendum. I spent a total of 50 minutes coordinating, documenting and providing care for this patient excluding time spent in the performance of separately billed services or time spent by another provider/QHP. Admission and Anticipated Discharge Date Admission Date: November 07, 2025 Supervising Physician Co-Signing Physician Notes Attending addendum: The patient was seen and examined in telemetry unit He was admitted with increasing shortness of breath and weakness and also leg swelling Noted to have combination of CHF on top of COPD and paroxysmal atrial fibrillation Has been feeling little better since admission Upon examination Sitting on a recliner without any acute distress Remains hemodynamically stable and requiring 3 L to maintain saturation Chestdecreased breath sounds bilaterally the lower area mainly with crackles at the bases. No wheezing HeartS1-S2 regular Abdomenbenign Extremitiesbilateral swelling of the legs with 1+ edema His admission labs, EKG and imaging studies reviewed Has a acute on chronic hypoxic respiratory failure complicated by acute on chronic diastolic heart failure , atrial fibrillation and also COPD Does not have any COPD exacerbationWill continue with nebulized bronchodilator and he is usual inhalers Has been getting intravenous Lasix for fluid overload/acute on chronic diastolic CHF He usually takes 2 L of oxygen at home and now requiring 3 which is expected to improve Agree with assessment and plan as outlined above by Batsheva SPEAR and take the full responsibility of care in the hospital Total time taken to see the patient, examining him, reviewing medications and labs and planning care was [address] Mary Rojas 11/09/2025 The patient was seen and examined in telemetry unit He was noted to be confused by the nursing staff but during examination he seemed quite oriented in time place and person Has weakness but denies any other significant symptoms His examination was unremarkable and stable hemodynamically He was convinced to take intravenous Venofer for iron deficiency anemia He has had physical therapy and recommended rehab therapy but he has been refusing Will coordinate with casework specialist for discharge planning Agree with assessment plan as outlined above by Anabel Nuñez PA-C and take the full responsibility of care in the hospital Total time taken to see the patient, examining him, explaining the results and also plan for care was [address] Mary Rojas 11/10/2025 The patient was seen and examined in telemetry unit He has been more wheezy and requiring more oxygen to maintain saturation Denies any shortness of breath at rest and remains hemodynamically stable Examination of the chest showed minimal wheezing but no crackles Will add Solu-Medrol 40 mg twice daily and continue current management Agree with assessment and plan as outlined above by Willow Nuñez PA-C and take the full responsibility of care in the hospital Total time taken to see the patient, examining him, reviewing the chart and medications and planning of care was [address] Mary Rojas 11/11/2025 The patient was seen and examined in telemetry unit in presence of the family members He has been stable from his shortness of breath following giving Lasix He will be getting more Lasix for the next day or 2 He denies any other significant symptoms Will continue PT and OT and most likely the patient will be going to short-term rehab and he seems to be agreeable This was discussed in detail with the family members the daughter and the [id number] case he qualifies for going home he will have home PT He is examinations remain unremarkable Agree with assessment and plan as outlined above by Teresa Dickerson PA-C and take the full responsible care in the hospital I spent a total of 20 minutes seeing the patient, going over the medications and planning of care and discussion with the family members and specialist DR Mary Rojas 11/12/2025 The patient was seen and examined in telemetry unit He has been feeling much better but has been requiring more oxygen to maintain saturation Urine output remains low with current dose of Lasix Remains otherwise free from any distress at rest Still has minimal edema involving the legs and bibasilar crackles Her labs reviewed, medications reviewed He will be getting increasing dose of Lasix IV 80 mg twice daily for more diuresis Will get a nocturnal pulse oximetry to document the requirement of oxygen at nighttime Continue PT OT and will need placement Agree with assessment and plan as outlined above by Teresa Dickerson PA-C and take the full responsibility of care in the hospital I spent a total of 15 minutes examining the patient, discussion about the findings and also planning for the care and discussion with the specialist Dr Mary Rojas 11/13/2025 Patient was seen and examined in telemetry unit He has been stable but is still requiring 3 L to maintain saturation Blood pressure remains on the lower side at 95/54 but asymptomatic Denies any other significant symptoms His physical examination remains unremarkable Will continue current doses of Lasix for more diuresis as per the phosphorus processing supervisor and the warp dresser Agree with assessment plan as outlined above by RAINER Rhoades and take the full responsibility of care in the hospital We spent a total of 10 minutes examining the patient, going over the medications and management plan and also discussion with the specialist Dr Mary Rojas 11/14/2025 The patient was seen and examined in telemetry unit He has been stable and denies any symptoms Lying in bed flat without any apparent shortness of breath Has been on 5 L oxygen saturation more than 97% Denies any significant symptoms Remains hemodynamically stable and examination of the chest showed minimal crackles at the dependent areas He has been waiting to be transferred to [facility] Agree with assessment plan as outlined above by RAINER Rhoades and take the full responsibility of care in the hospital I spent a total of 10 minutes examining the patient, going over the results of tests and medications and planning of care Dr Mary Rojas Subjective Patient seen resting in bed Reports SOB continues to improve Denies dizziness, chest pain, abdominal pain, N/V/D Review of Systems Review of Systems: All systems reviewed & are unremarkable except as noted in HPI & below Physical Exam Physical Exam: General/Psych: obese, sitting up in bed, NAD, conversing easily Head: normocephalic, atraumatic Eyes: normal inspection, PERRL, conjunctivae pink Neck: normal visual inspection, trachea midline Respiratory: normal respiratory effort, lungs with decreased air entry, no wheezing or crackles, no accessory muscle use Cardiovascular: regular rate and rhythm, +murmur Extremities: no cyanosis or clubbing, normal peripheral pulses, 1+ BLE edema Abdomen/GI: normal bowel sounds, soft, nontender Neurologic/MSK: A+Ox3, motor strength 5/5, moves all extremities Skin: no rashes, normal color, warm and dry Results & Data Results & Data Vital Signs (Past 12 Hours) Vital Signs Temp Pulse Pulse Resp BP BP Pulse Ox 11/14/25 10:47 11/14/25 09:08 36.7 C 60 17 106/61 97 11/14/25 07:43 60 11/14/25 07:07 60 18 96 11/14/25 03:09 36.3 C L 60 19 123/68 93 11/14/25 00:08 60 16 96 O2 Del Method O2 Flow Rate 11/14/25 10:47 Nasal Cannula 4 11/14/25 09:08 Nasal Cannula 5 11/14/25 07:43 11/14/25 07:07 Nasal Cannula 4 11/14/25 03:09 Nasal Cannula 4 11/14/25 00:08 Nasal Cannula 6 Laboratory Results Short CBC 11/14/25 Range/Units 05:52 WBC 7.67 (4.8-10.8) K/ul Hgb 7.2 L (14.0-18.0) g/dL Hct 23.0 L (42.0-52.0) % Plt Count 209 (130-400) K/uL BMP 11/14/25 05:52 Sodium 142 Potassium 3.8 Chloride 101 Carbon Dioxide 33 H BUN 71 H Creatinine 3.07 H Glucose 97 Calcium 8.1 L I have independently reviewed and interpreted patient's labs including CBC and BMP Medications Administered Current Inpatient Medications Acetaminophen (Acetaminophen 325 Mg Tab) 650 mg PO Q4H PRN PRN Reason: Pain or Fever Stop: 12/07/25 16:31 Albuterol (Albut/Ipratrop 3mg/0.5mg Neb 3 Ml Vial) 3 ml NEB Q6R [facility]; Protocol Stop: 12/08/25 12:59 Last Admin: 11/14/25 07:07 Dose: 3 ml Amlodipine Besylate (Amlodipine Besylate 5 Mg Tab) 5 mg PO DAILY [facility] Stop: 12/10/25 08:59 Last Admin: 11/14/25 08:29 Dose: 5 mg Ascorbic Acid (Ascorbic Acid 500 Mg Tab) 500 mg PO DAILY [facility] Stop: 12/08/25 08:59 Last Admin: 1223/25 08:29 Dose: 500 mg Aspirin (Aspirin 81 Mg Chew) 81 mg PO DAILY [facility] Stop: 12/08/25 08:59 Last Admin: 11/14/25 08:30 Dose: 81 mg Atorvastatin Calcium (Atorvastatin 40 Mg Tab) 40 mg PO DAILY [facility] Stop: 12/08/25 08:59 Last Admin: 11/14/25 08:31 Dose: 40 mg Carvedilol (Carvedilol 25 Mg Tab) 25 mg PO BIDM [facility] Stop: 12/07/25 20:59 Last Admin: 11/14/25 08:27 Dose: 25 mg Cetirizine HCl (Cetirizine Hcl 10 Mg Tablet) 10 mg PO DAILY [facility] Stop: 12/08/25 08:59 Last Admin: 11/14/25 08:31 Dose: 10 mg Dextrose (Dextrose 50% 50 Ml Syringe) 25 - 50 ml IV UD PRN; Protocol PRN Reason: Hypoglycemia Protocol Stop: 12/07/25 15:25 Epoetin Mukesh (Epoetin Mukesh 10,000 Units/Ml Vial) 10,000 units SQ ONCE ONE Stop: 11/14/25 11:31 Famotidine (Famotidine 20 Mg Tab) 20 mg PO BID [facility] Stop: 12/07/25 20:59 Last Admin: 11/14/25 08:32 Dose: 20 mg Ferrous Sulfate (Ferrous Sulfate 325 Mg Tab) 325 mg PO DAILY [facility] Stop: 12/08/25 08:59 Last Admin: 11/14/25 08:32 Dose: 325 mg Folic Acid (Folic Acid 1 Mg Tab) 1 mg PO DAILY [facility] Stop: 12/08/25 08:59 Last Admin: 11/14/25 08:32 Dose: 1 mg Furosemide (Furosemide 40 Mg/4 Ml Vial) 60 mg IV BID [facility] Stop: 12/13/25 20:59 Last Admin: 11/14/25 08:51 Dose: 60 mg Glucagon (Glucagon For Inj 1 Mg Vial) 1 mg SQ UD PRN; Protocol PRN Reason: Hypoglycemia Protocol Stop: 12/07/25 15:25 Glucose (Glucose 40% Gel 15 Gm Tube) 15 - 30 gm PO UD PRN; Protocol PRN Reason: Hypoglycemia Protocol Stop: 12/07/25 15:25 Glucose (Glucose 10 Tab/Tube) 4 - 8 tab PO UD PRN; Protocol PRN Reason: Hypoglycemia Protocol Stop: 12/07/25 15:25 Magnesium Sulfate/Dextrose (Magnesium Sulfate / D5w) 1 gm in 100 mls @ 50 mls/hr IV Q2H [facility] Stop: 11/14/25 11:29 Last Admin: 11/14/25 10:18 Dose: 50 mls/hr Iron Sucrose 300 mg/ Sodium (Chloride) 265 mls @ 176.667 mls/hr IV ONE ONE Stop: 11/14/25 12:59 Insulin Aspart (Insulin Aspart Per Unit Charge) 0 units SC ACHS [facility] Stop: 12/11/25 20:59 Last Admin: 11/14/25 08:52 Dose: 4 units Insulin Glargine (Lantus Per Unit Charge) 10 units SQ DAILY [facility] Stop: 12/14/25 08:59 Last Admin: 11/14/25 08:52 Dose: 10 units Miscellaneous (Carbohydrates For Hypoglycemia ) 15 - 30 gm PO UD PRN PRN Reason: Hypoglycemia Protocol Stop: 12/07/25 15:25 Last Admin: 11/08/25 02:00 Dose: 30 gm Miscellaneous Information (Pharmacy Glycemic Mgmt Consult) 1 each N/A UD PRN; Protocol PRN Reason: Consult Stop: 12/07/25 16:15 Montelukast Sodium (Montelukast Sodium 10 Mg Tablet) 10 mg PO HS [facility] Stop: 12/07/25 20:59 Last Admin: 11/13/25 20:21 Dose: 10 mg Ondansetron HCl (Ondansetron Inj 2 Mg/Ml 2 Ml Vial) 4 mg IV Q6H PRN PRN Reason: Nausea Stop: 12/07/25 16:31 Pantoprazole Sodium (Pantoprazole 40 Mg Tab) 40 mg PO DAILY [facility] Stop: 12/08/25 08:59 Last Admin: 11/14/25 08:32 Dose: 40 mg Polyethylene Glycol (Polyethylene (Miralax) 17 Gm Pack) 17 gm PO DAILY PRN PRN Reason: Constipation Stop: 12/07/25 16:31 Umeclidinium Vinton (Umeclidinium [place] 62.5mcg/Blister 7 Puffs/Inhaler) 1 puffs INH DAILY [facility] Stop: 12/08/25 08:59 Last Admin: 11/14/25 08:32 Dose: 1 puffs (3) Anemia Anemia type: unspecified type Qualified Code(s): D64.9 - Anemia, unspecified
[2025-11-14] MEDS: EPOETIN ALFA 10,000 UNITS/ML VIAL SQ ONE (12:12)
[2025-11-14] MEDS: IRON SUCROSE 300 MG in SODIUM CHLORIDE 0.9% 250 ML IV ONE (12:39)
--- NOTE | 2025-11-14 12:43 | Pharmacy Report ---
Pharmacy Glycemic Short Note 2 - Date of Service November 14, 2025 - Glycemic Short BSG Results (Last 24 hours): 11/13/25 11/13/25 11/14/25 16:45 20:42 05:52 Glucose 97 POC Glucose 96 111 H 11/14/25 11/14/25 08:12 11:58 Glucose POC Glucose 117 H 140 H OUTPATIENT ANTIDIABETIC REGIMEN: * Tresiba 18 units SQ Q AM * Novolog 4 units SQ TID with meals * Jardiance 25mg PO daily * Ozempic 0.5mg SQ weekly HbA1c: 6.7% on 11/08/25 ASSESSMENT: 11/14: * Ole received a total of 28units of insulin yesterday (15 units were basal and 13 units were bolus). BSGs were 023-254-59-111mg/dL. * Fasting BSG was below goal this morning. Lantus dose was decreased and carb ratio of bolus insulin was loosened. * Continue to hold empagliflozin due to MARIAA 11/13: * Ole received a total of 31 units of insulin yesterday (15 units were basal and 16 units were bolus). Despite increased doses of insulin, most BSGs were still above goal yesterday. * Fasting BS was 159mg/dL this morning. Lantus dose just increased yesterday and bolus insulin parameters adjust yesterday also so will continue both without change for now. 11/10: * Patient received total of 13 units of insulin yesterday, of which 5 units were basal * Fasting BSG 130 mg/dL - continue same * No change to CF/CR. Will monitor Scr as continuing to trend upward, may need to loosen insulin parameters in future 11/09/25: * Blood sugars elevated yesterday with correction factor only, will add carb ratio today * Fasting blood sugar of 143 mg/dL this morning - will restart low-dose basal insulin today * Worsening MARIAA (SCr 2.54 mg/dL today) - empagliflozin given this AM, but now on hold 11/08/25: * Ole is a 70 year old male who was presented yesterday with increased shortness of breath and lower extremity swelling x 4 weeks. Pharmacy was consulted for glycemic management while he is admitted. * Patient was hypoglycemic on admit (BSG 52 mg/dL) and dropped to 42mg/dL at HS. Unclear what/how much insulin was used prior to arrival. A conservative insulin regimen was started at that time utilizing only the correction factor (no carb coverage). * Fasting BSG was still below goal this morning. Will not start him on basal insulin at this time and will continue bolus insulin regimen without change. PLAN FOR INPATIENT GLYCEMIC CONTROL: * Empagliflozin 25 mg PO daily (on hold currently due to MARIAA) * Basal insulin * Lantus 10 units SC daily * Bolus insulin * NovoLog per scale ACHS or Q6hrs while NPO * Goal Range: Low 120 mg/dL - High 160 mg/dL * Correction Factor: 40 mg/dL/unit * Nutritional / Prandial insulin per carb ratio: 12 g/unit
[2025-11-14] MEDS: TORSEMIDE 20 MG TAB PO SCH (20:33)
[2025-11-15 06:05] LABS: Hematocrit (blood only) 23.0 % (42.0-52.0); Hemoglobin 7.5 g/dL (14.0-18.0); Mean Corpuscular Hemoglobin 32.1 pg (25.0-34.0); Mean Corpuscular Volume 98.3 fL (80.0-100.0); Platelet Count 209 K/uL (130-400); RDW Standard Deviation 55.8 fL (36.4-46.3); Red Blood Count 2.34 M/uL (4.70-6.10); White Blood Count 7.07 K/ul (4.8-10.8)
[2025-11-15 06:32] LABS: Anion Gap 8.0 (3-11); Blood Urea Nitrogen 67.0 mg/dl (6-23); Calcium 8.1 mg/dl (8.6-10.3); Carbon Dioxide 34.0 mmol/L (21-32); Chloride 101.0 mmol/L (98-107); Creatinine Clr Calc Pharmacy 30.9 ml/min; Glucose 107.0 mg/dl (70-99(Fasting)); Magnesium 1.9 mg/dl (1.7-2.4); Potassium 3.9 mmol/L (3.5-5.1); Sodium 143.0 mmol/L (136-145)
--- NOTE | 2025-11-15 07:13 | XRay Report ---
EXAM: XR chest 1V portable CLINICAL HISTORY: sob TECHNIQUE: An X-ray image of the chest is obtained in AP projection. COMPARISON: 11/10/2025 CR. FINDINGS: Pulmonary Parenchyma: Technically rotated. Bilateral hilar vascular congestion with upper lobe blood vessel divergent and perihilar haziness demonstrating interval progression. Interval inhomogeneous airspace opacification is suggested in the right upper zone. Haziness noted in bilateral lower lobes and blunting of the bilateral costophrenic angles, likely due to underlying effusion with atelectasis/consolidation. Heart and Mediastinum: Heart size cannot be commented upon due to AP projection. Bony Thorax: Bony thorax appears intact without fractures or deformities. Soft Tissues: The cardiac pacemaker is in place. Soft tissues overlying the chest wall are unremarkable. IMPRESSION: 1. Imaging appearances are suggestive of changes of pulmonary edema, with bilateral pleural effusion with interval progression. 2. Interval inhomogeneous opacification in the right upper zone; the possibility of superimposed pulmonary infection cannot be entirely excluded and needs further clinical correlation and follow-up. Electronically signed by Ever Pat 11-15-2025 07:11 AM
[2025-11-15] MEDS: TORSEMIDE 20 MG TAB PO SCH (08:38)
--- NOTE | 2025-11-15 09:56 | Nephrology Progress Note ---
Date of Service November 15, 2025 Assessment & Plan Admission and Anticipated Discharge Date Admission Date: November 07, 2025 Subjective Assessment & Plan (1) MARIAA (acute kidney injury): Creat was rising from 1.88 to 2.88 to 3 now. However this is not from lasix--he has had hardly any diuresis--on average about 1000 ml per day of urine is hardly diuresis. even now has clear e/o fluid overload. MARIAA is sec to ATN in the setting of CHF/Hypoxia/resp failure. this is why we are seeing clear pattern of daily rise in creatinine. Creat went up again a bit to 3.27 but today is down to 2.74 today so overall stable and now trending down. with underlying CKD/CHF/COPD he is prone for ATN. K is normal now. switch to oral torsemide 60 bid Still needing lot of o2 so dont think its all CHF--Consider CT chest for pulm eval also making urine and not really acting like Obstruction. Stop jardiance, JETHRO, ARB, NSAID for now. Avoid contrast agents. daily labs. I and O charting. Also anemia quite significant---Did give him dose of venofer 300 x 1 and procrit [id number] units sub q he will need anemia clinic mx through nephrology. (2) CKD (chronic kidney disease), stage III: baseline CKD 3B from multiple issues. Current creat higher than baseline of around 2. (3) Acute on chronic hypoxic respiratory failure: Sig decline since pneumonia adx in . even now needing high 02. Not a lot of Diuresis so far. Consider CT chest also to evaluate for underlying Pulm issues also. but for now will assume mainly related with CHF S--no new issues. still SOB with exertion and needing lot of 2. Making urine. ROS--12 Systems reviewed and is otherwise negative. See HPI Physical Exam Physical Exam: Elderly male, some resp distress. Weak. AAox 3 HEENT: Normocephalic, atraumatic, mucous membranes moist. Lung: b/l prolonged exp, wheeze and some rhonchi heard Heart: Regular rate, regular rhythm, no murmurs Abdomen: Soft, NT Extremities: +1 lower ext edema Skin: Warm, no rash, negative turgor. Results & Data Vital Signs (Past 12 Hours) Vital Signs Temp Pulse Pulse Resp BP BP Pulse Ox 11/15/25 09:00 36.7 C 60 24 106/56 L 91 11/15/25 07:21 63 22 97 11/15/25 07:21 63 22 97 11/15/25 05:41 60 24 95 11/15/25 03:03 36.9 C 88 20 124/78 92 11/14/25 23:07 37.0 C 63 18 106/63 90 O2 Del Method O2 Flow Rate FiO2 11/15/25 09:00 Oxymask 10.0 11/15/25 07:21 50 11/15/25 07:21 BiPAP 50 11/15/25 05:41 40 11/15/25 03:03 Nasal Cannula 6 11/14/25 23:07 Nasal Cannula 6
--- NOTE | 2025-11-15 13:07 | Hospitalist Progress Note ---
Date of Service November 15, 2025 Assessment & Plan (1) Acute on chronic diastolic heart failure with preserved ejection fraction: (2) Acute on chronic hypoxic respiratory failure: (3) Anemia: (4) CKD (chronic kidney disease), stage III: Plan This is a 70yo M with PMH of combined systolic and diastolic HF, type 2 diabetes, hypertension, COPD, heart block s/p pacemaker placement, paroxysmal atrial fibrillation, history of CVA, CKD 3, chronic hypoxic respiratory failure on 2L NC and other medical problems listed below who presents from home with increased shortness of breath and lower extremity swelling x 4 weeks. Acute on chronic respiratory failure Acute on chronic HFpEF Discharged from hospitalization at [facility] for COPD exacerbation secondary to PNA in Jul 2025 with new 2L O2 requirement Patient presenting with worsening SOB, edema, increased O2 requirement CXR reviewed - cardiomegaly and cardiac pacemaker with evidence of congestive failure and pulmonary edema TTE on 10/26/25 with EF 50-54%, septal motion is abnormal consistent with right ventricular pacemaker, left atrium is moderately enlarged -> similar compared to prior in Nov 2023 Cardiology decreased amlodipine to 5mg daily Ongoing diuresis per Nephrology recs-> torsemide 60mg PO bid *Of note, patient received 60mg IV lasix and 60mg PO torsemide on 11/14 evening due to incorrect timing of order for PO torsemide that was to begin am of 11/15 - vitals, labs, exam findings all stable despite error* Continue daily weights (111kg -> 108), I&Os (-7.6L cumulative), low salt diet Nocturnal pulse on on 11/13 revealed 9 desat events while on 4L NC Patient continues to have varying levels of oxygen requirements Nursing reports that patient is not compliant and frequently removes oxygen Placed on bipap overnight 11/15 for short period of time and weaned back to NC CXR notes interval progression of bilateral pleural effusion and interval inhomogenous opacification in right upper zone Low suspicion for pneumonia given no leukocytosis, clear lungs, no s/s, procalci tonin pending Monitor off abx COPD Exacerbation possible but presentation likely due to CHF more than COPD Continue home Spiriva inhaler, duonebs q6hr Follow up with Pulmonology as scheduled in November Trialed steroids but felt to be more consistent with cardiac etiology, discontinued Multifactorial anemia Hgb 8-9 since August, was closer to 10 prior to that Started on iron supplementation during hospitalization at [facility], has been taking TID PCP notes possible need for IV iron due to CKD and poor absorption of oral iron, s/p Venofer x 1 on 11/09 B12 and folate WNL Hgb persisting around 7.0 s/p IV venofer x3 doses and Epoetin Mukesh x1 on 11/[address] Bauman recommends anemia clinic follow up MARIAA 2/2 ATN superimposed on CKD [address] Bauman, feels Cr trend is 2/2 ATN in setting of underlying CKD, hypoxia, CHF Creatinine baseline of ~2.0 During admission, Cr up-trending from 1.88 -> 2.88 -> 3.01-> 3.27-> 3.07-> 2.74 today Jardiance held, not on JETHRO, ARB or nsaids Paroxysmal A fib History of complete heart block s/p dual chamber pacemaker (2019) Presence of Watchman left atrial appendage closure device Rate controlled No longer on anticoagulation since presence of Watchman left atrial appendage closure device Continue baby aspirin and Coreg Hyperkalemia-> resolved Resolved with lokelma Type 2 diabetes A1c 6.7 Hold home agents, Jardiance placed on hold BSG ACHS and SSI while inpatient Glycemic consult DVT Prophylaxis: SCDs due to anemia Code Status: FULL CODE PCP: Reji Love Disposition: dc to [facility] when bed available Patient seen in collaboration with Dr. Rojas. Please see addendum. I spent a total of 50 minutes coordinating, documenting and providing care for this patient excluding time spent in the performance of separately billed services or time spent by another provider/QHP. Admission and Anticipated Discharge Date Admission Date: November 07, 2025 Supervising Physician Co-Signing Physician Notes Attending addendum: The patient was seen and examined in telemetry unit He was admitted with increasing shortness of breath and weakness and also leg swelling Noted to have combination of CHF on top of COPD and paroxysmal atrial fibrillation Has been feeling little better since admission Upon examination Sitting on a recliner without any acute distress Remains hemodynamically stable and requiring 3 L to maintain saturation Chestdecreased breath sounds bilaterally the lower area mainly with crackles at the bases. No wheezing HeartS1-S2 regular Abdomenbenign Extremitiesbilateral swelling of the legs with 1+ edema His admission labs, EKG and imaging studies reviewed Has a acute on chronic hypoxic respiratory failure complicated by acute on chronic diastolic heart failure , atrial fibrillation and also COPD Does not have any COPD exacerbationWill continue with nebulized bronchodilator and he is usual inhalers Has been getting intravenous Lasix for fluid overload/acute on chronic diastolic CHF He usually takes 2 L of oxygen at home and now requiring 3 which is expected to improve Agree with assessment and plan as outlined above by Batsheva SPEAR and take the full responsibility of care in the hospital Total time taken to see the patient, examining him, reviewing medications and labs and planning care was [address] Mary Rojas 11/09/2025 The patient was seen and examined in telemetry unit He was noted to be confused by the nursing staff but during examination he seemed quite oriented in time place and person Has weakness but denies any other significant symptoms His examination was unremarkable and stable hemodynamically He was convinced to take intravenous Venofer for iron deficiency anemia He has had physical therapy and recommended rehab therapy but he has been refusing Will coordinate with machine adjuster leader case trim for discharge planning Agree with assessment plan as outlined above by Anabel Nuñez PA-C and take the full responsibility of care in the hospital Total time taken to see the patient, examining him, explaining the results and also plan for care was [address] Mary Rojas 11/10/2025 The patient was seen and examined in telemetry unit He has been more wheezy and requiring more oxygen to maintain saturation Denies any shortness of breath at rest and remains hemodynamically stable Examination of the chest showed minimal wheezing but no crackles Will add Solu-Medrol 40 mg twice daily and continue current management Agree with assessment and plan as outlined above by Willow Nuñez PA-C and take the full responsibility of care in the hospital Total time taken to see the patient, examining him, reviewing the chart and medications and planning of care was [address] Mary Rojas 11/11/2025 The patient was seen and examined in telemetry unit in presence of the family members He has been stable from his shortness of breath following giving Lasix He will be getting more Lasix for the next day or 2 He denies any other significant symptoms Will continue PT and OT and most likely the patient will be going to short-term rehab and he seems to be agreeable This was discussed in detail with the family members the daughter and the [id number] case he qualifies for going home he will have home PT He is examinations remain unremarkable Agree with assessment and plan as outlined above by Teresa Dickerson PA-C and take the full responsible care in the hospital I spent a total of 20 minutes seeing the patient, going over the medications and planning of care and discussion with the family members and specialist DR Mary Rojas 11/12/2025 The patient was seen and examined in telemetry unit He has been feeling much better but has been requiring more oxygen to maintain saturation Urine output remains low with current dose of Lasix Remains otherwise free from any distress at rest Still has minimal edema involving the legs and bibasilar crackles Her labs reviewed, medications reviewed He will be getting increasing dose of Lasix IV 80 mg twice daily for more diuresis Will get a nocturnal pulse oximetry to document the requirement of oxygen at nighttime Continue PT OT and will need placement Agree with assessment and plan as outlined above by Teresa Dickerson PA-C and take the full responsibility of care in the hospital I spent a total of 15 minutes examining the patient, discussion about the findings and also planning for the care and discussion with the specialist Dr Mary Rojas 11/13/2025 Patient was seen and examined in telemetry unit He has been stable but is still requiring 3 L to maintain saturation Blood pressure remains on the lower side at 95/54 but asymptomatic Denies any other significant symptoms His physical examination remains unremarkable Will continue current doses of Lasix for more diuresis as per the manager nursing home and the interactive project manager Agree with assessment plan as outlined above by RAINER Rhoades and take the full responsibility of care in the hospital We spent a total of 10 minutes examining the patient, going over the medications and management plan and also discussion with the specialist Dr Mary Rojas 11/14/2025 The patient was seen and examined in telemetry unit He has been stable and denies any symptoms Lying in bed flat without any apparent shortness of breath Has been on 5 L oxygen saturation more than 97% Denies any significant symptoms Remains hemodynamically stable and examination of the chest showed minimal crackles at the dependent areas He has been waiting to be transferred to [facility] Agree with assessment plan as outlined above by RAINER Rhoades and take the full responsibility of care in the hospital I spent a total of 10 minutes examining the patient, going over the results of tests and medications and planning of care Dr Mary Rojas 11/15/2025 The patient was seen and examined in telemetry unit He has been not keeping his oxygen at nighttime and his saturation drops drastically as low as 60s Has been feeling much better since morning and using nasal cannula/mask when asked for He denies any other significant symptoms He was strongly advised to use mask at nighttime so that he does not come out from the nose as having his nasal cannula Seems to be noncompliant with the management plan not being improving the way he is supposed to be Has been diuresing enough with a cumulative fluid balance of -7320 mL He has been waiting for placement Agree with assessment plan as outlined above by RAINER Rhoades and take the full responsibility of care in the hospital I spent a total of 15 minutes examining the patient, reviewing the chart and going over the test results with the patient and planning the care Dr Mary Rojas Subjective Patient seen resting in bed Reports he feels fine Denies dizziness, chest pain, SOB, abdominal pain, N/V Had diarrhea once Review of Systems Review of Systems: All systems reviewed & are unremarkable except as noted in HPI & below Physical Exam Physical Exam: General/Psych: obese, sitting up in bed, NAD, conversing easily Head: normocephalic, atraumatic Eyes: normal inspection, PERRL, conjunctivae pink Neck: normal visual inspection, trachea midline Respiratory: normal respiratory effort, lungs with decreased air entry, no wheezing or crackles, no accessory muscle use Cardiovascular: regular rate and rhythm, +murmur Extremities: no cyanosis or clubbing, normal peripheral pulses, trace BLE edema Abdomen/GI: normal bowel sounds, soft, nontender Neurologic/MSK: A+Ox3, motor strength 5/5, moves all extremities Skin: no rashes, normal color, warm and dry Results & Data Results & Data Vital Signs (Past 12 Hours) Vital Signs Temp Pulse Pulse Resp BP BP Pulse Ox 11/15/25 12:14 36.7 C 56 L 20 122/64 91 11/15/25 12:06 61 18 91 11/15/25 09:00 36.7 C 60 24 106/56 L 91 11/15/25 07:21 63 22 97 11/15/25 07:21 63 22 97 11/15/25 05:41 60 24 95 11/15/25 03:03 36.9 C 88 20 124/78 92 O2 Del Method O2 Flow Rate FiO2 11/15/25 12:14 Nasal Cannula 11/15/25 12:06 Oxymask 6 11/15/25 09:00 Oxymask 10.0 11/15/25 07:21 50 11/15/25 07:21 BiPAP 50 11/15/25 05:41 40 11/15/25 03:03 Nasal Cannula 6 Laboratory Results Short CBC 11/15/25 Range/Units 05:46 WBC 7.07 (4.8-10.8) K/ul Hgb 7.5 L (14.0-18.0) g/dL Hct 23.0 L (42.0-52.0) % Plt Count 209 (130-400) K/uL BMP 11/15/25 05:46 Sodium 143 Potassium 3.9 Chloride 101 Carbon Dioxide 34 H BUN 67 H Creatinine 2.74 H D Glucose 107 H Calcium 8.1 L I have independently reviewed and interpreted patient's labs including CBC and BMP Medications Administered Current Inpatient Medications Acetaminophen (Acetaminophen 325 Mg Tab) 650 mg PO Q4H PRN PRN Reason: Pain or Fever Stop: 12/07/25 16:31 Albuterol (Albut/Ipratrop 3mg/0.5mg Neb 3 Ml Vial) 3 ml NEB Q6R [facility]; Protocol Stop: 12/08/25 12:59 Last Admin: 11/15/25 12:06 Dose: 3 ml Amlodipine Besylate (Amlodipine Besylate 5 Mg Tab) 5 mg PO DAILY [facility] Stop: 12/10/25 08:59 Last Admin: 11/15/25 08:39 Dose: 5 mg Ascorbic Acid (Ascorbic Acid 500 Mg Tab) 500 mg PO DAILY [facility] Stop: 12/08/25 08:59 Last Admin: 11/15/25 08:38 Dose: 500 mg Aspirin (Aspirin 81 Mg Chew) 81 mg PO DAILY [facility] Stop: 12/08/25 08:59 Last Admin: 11/15/25 08:38 Dose: 81 mg Atorvastatin Calcium (Atorvastatin 40 Mg Tab) 40 mg PO DAILY [facility] Stop: 12/08/25 08:59 Last Admin: 11/15/25 08:38 Dose: 40 mg Carvedilol (Carvedilol 25 Mg Tab) 25 mg PO BIDM [facility] Stop: 12/07/25 20:59 Last Admin: 11/15/25 08:39 Dose: 25 mg Cetirizine HCl (Cetirizine Hcl 10 Mg Tablet) 10 mg PO DAILY [facility] Stop: 12/08/25 08:59 Last Admin: 11/15/25 08:38 Dose: 10 mg Dextrose (Dextrose 50% 50 Ml Syringe) 25 - 50 ml IV UD PRN; Protocol PRN Reason: Hypoglycemia Protocol Stop: 12/07/25 15:25 Famotidine (Famotidine 20 Mg Tab) 20 mg PO BID [facility] Stop: 12/07/25 20:59 Last Admin: 11/15/25 08:38 Dose: 20 mg Ferrous Sulfate (Ferrous Sulfate 325 Mg Tab) 325 mg PO DAILY [facility] Stop: 12/08/25 08:59 Last Admin: 11/15/25 08:39 Dose: 325 mg Folic Acid (Folic Acid 1 Mg Tab) 1 mg PO DAILY [facility] Stop: 12/08/25 08:59 Last Admin: 11/15/25 08:39 Dose: 1 mg Glucagon (Glucagon For Inj 1 Mg Vial) 1 mg SQ UD PRN; Protocol PRN Reason: Hypoglycemia Protocol Stop: 12/07/25 15:25 Glucose (Glucose 40% Gel 15 Gm Tube) 15 - 30 gm PO UD PRN; Protocol PRN Reason: Hypoglycemia Protocol Stop: 12/07/25 15:25 Glucose (Glucose 10 Tab/Tube) 4 - 8 tab PO UD PRN; Protocol PRN Reason: Hypoglycemia Protocol Stop: 12/07/25 15:25 Insulin Aspart (Insulin Aspart Per Unit Charge) 0 units SC ACHS [facility] Stop: 12/11/25 20:59 Last Admin: 11/15/25 12:59 Dose: 2 units Insulin Glargine (Lantus Per Unit Charge) 10 units SQ DAILY [facility] Stop: 12/14/25 08:59 Last Admin: 11/15/25 08:37 Dose: 10 units Miscellaneous (Carbohydrates For Hypoglycemia ) 15 - 30 gm PO UD PRN PRN Reason: Hypoglycemia Protocol Stop: 12/07/25 15:25 Last Admin: 11/08/25 02:00 Dose: 30 gm Miscellaneous Information (Pharmacy Glycemic Mgmt Consult) 1 each N/A UD PRN; Protocol PRN Reason: Consult Stop: 12/07/25 16:15 Montelukast Sodium (Montelukast Sodium 10 Mg Tablet) 10 mg PO HS [facility] Stop: 12/07/25 20:59 Last Admin: 11/14/25 20:33 Dose: 10 mg Ondansetron HCl (Ondansetron Inj 2 Mg/Ml 2 Ml Vial) 4 mg IV Q6H PRN PRN Reason: Nausea Stop: 12/07/25 16:31 Pantoprazole Sodium (Pantoprazole 40 Mg Tab) 40 mg PO DAILY [facility] Stop: 12/08/25 08:59 Last Admin: 11/15/25 08:39 Dose: 40 mg Polyethylene Glycol (Polyethylene (Miralax) 17 Gm Pack) 17 gm PO DAILY PRN PRN Reason: Constipation Stop: 12/07/25 16:31 Torsemide (Torsemide 20 Mg Tab) 60 mg PO BID [facility] Stop: 12/15/25 08:59 Last Admin: 11/15/25 08:38 Dose: 60 mg Umeclidinium [place] (Umeclidinium [place] 62.5mcg/Blister 7 Puffs/Inhaler) 1 puffs INH DAILY [facility] Stop: 12/08/25 08:59 Last Admin: 11/15/25 12:16 Dose: 1 puffs (3) Anemia Anemia type: unspecified type Qualified Code(s): D64.9 - Anemia, unspecified
[2025-11-16 04:31] VITALS: TEMP 97.9
[2025-11-16 06:29] LABS: Hematocrit (blood only) 26.2 % (42.0-52.0); Hemoglobin 8.4 g/dL (14.0-18.0); Mean Corpuscular Hemoglobin 31.8 pg (25.0-34.0); Mean Corpuscular Volume 99.2 fL (80.0-100.0); Platelet Count 233 K/uL (130-400); RDW Standard Deviation 56.9 fL (36.4-46.3); Red Blood Count 2.64 M/uL (4.70-6.10); White Blood Count 8.37 K/ul (4.8-10.8)
[2025-11-16 07:05] LABS: Anion Gap 11.0 (3-11); Blood Urea Nitrogen 67.0 mg/dl (6-23); Calcium 8.5 mg/dl (8.6-10.3); Carbon Dioxide 34.0 mmol/L (21-32); Chloride 99.0 mmol/L (98-107); Creatinine Clr Calc Pharmacy 31.1 ml/min; Glucose 148.0 mg/dl (70-99(Fasting)); Magnesium 1.9 mg/dl (1.7-2.4); Potassium 3.8 mmol/L (3.5-5.1); Sodium 144.0 mmol/L (136-145)
--- NOTE | 2025-11-16 10:08 | Hospitalist Progress Note ---
Date of Service November 16, 2025 Assessment & Plan (1) Acute on chronic diastolic heart failure with preserved ejection fraction: (2) Acute on chronic hypoxic respiratory failure: (3) Anemia: (4) CKD (chronic kidney disease), stage III: Plan This is a 70yo M with PMH of combined systolic and diastolic HF, type 2 diabetes, hypertension, COPD, heart block s/p pacemaker placement, paroxysmal atrial fibrillation, history of CVA, CKD 3, chronic hypoxic respiratory failure on 2L NC and other medical problems listed below who presents from home with increased shortness of breath and lower extremity swelling x 4 weeks. Acute on chronic respiratory failure Acute on chronic HFpEF Discharged from hospitalization at [facility] for COPD exacerbation secondary to PNA in Jul 2025 with new 2L O2 requirement Patient presenting with worsening SOB, edema, increased O2 requirement CXR reviewed - cardiomegaly and cardiac pacemaker with evidence of congestive failure and pulmonary edema TTE on 10/26/25 with EF 50-54%, septal motion is abnormal consistent with right ventricular pacemaker, left atrium is moderately enlarged -> similar compared to prior in Nov 2023 Cardiology decreased amlodipine to 5mg daily Ongoing diuresis per Nephrology recs-> torsemide 60mg PO bid *Of note, patient received 60mg IV lasix and 60mg PO torsemide on 11/14 evening due to incorrect timing of order for PO torsemide that was to begin am of 11/15 - vitals, labs, exam findings all stable despite error* He remains stable and has been requiring up to 6 L to maintain saturation His cumulative fluid balance is -8420 mL and he has been getting oral diuretics Likely to be discharged to [facility] this afternoon Nocturnal pulse on on 11/13 revealed 9 desat events while on 4L NC Patient continues to have varying levels of oxygen requirements Nursing reports that patient is not compliant and frequently removes oxygen Placed on bipap overnight 11/15 for short period of time and weaned back to NC CXR notes interval progression of bilateral pleural effusion and interval inhomogenous opacification in right upper zone Low suspicion for pneumonia given no leukocytosis, clear lungs, no s/s, procalcitonin pending Monitor off abx COPD Exacerbation possible but presentation likely due to CHF more than COPD Continue home Spiriva inhaler, duonebs q6hr Follow up with Pulmonology as scheduled in November Trialed steroids but felt to be more consistent with cardiac etiology, discontinued Does not have any COPD exacerbation but has been requiring more oxygen to maintain saturation Multifactorial anemia Hgb 8-9 since August, was closer to 10 prior to that Started on iron supplementation during hospitalization at [facility] [place], has been taking TID PCP notes possible need for IV iron due to CKD and poor absorption of oral iron, s/p Venofer x 1 on 11/09 B12 and folate WNL Hgb persisting around 7.0 s/p IV venofer x3 doses and Epoetin Mukesh x1 on 11/[address] Bauman recommends anemia clinic follow up Received intravenous Venofer x 3 and also appropriate x 1 Hemoglobin remains stable at 8.4 MARIAA 2/2 ATN superimposed on CKD [address] Bauman, feels Cr trend is 2/2 ATN in setting of underlying CKD, hypoxia, CHF Creatinine baseline of ~2.0 During admission, Cr up-trending from 1.88 -> 2.88 -> 3.01-> 3.27-> 3.07-> 2.74 today Jardiance held, not on JETHRO, ARB or nsaids Paroxysmal A fib History of complete heart block s/p dual chamber pacemaker (2019) Presence of Watchman left atrial appendage closure device Rate controlled No longer on anticoagulation since presence of Watchman left atrial appendage closure device Continue baby aspirin and Coreg Rate is controlled, appreciate cardiology input and recommendation and will continue current medications Hyperkalemia-> resolved Resolved with lokelma Type 2 diabetes A1c 6.7 Hold home agents, Jardiance placed on hold BSG ACHS and SSI while inpatient Glycemic consult DVT Prophylaxis: SCDs due to anemia Code Status: FULL CODE PCP: Reji Love Disposition: dc to [facility] when bed available I spent a total of 37 minutes coordinating, documenting and providing care for this patient excluding time spent in the performance of separately billed services or time spent by another provider/QHP. Admission and Anticipated Discharge Date Admission Date: November 07, 2025 Subjective 11/16/2025 The patient was seen and examined in telemetry unit He seems to be much better today and standing at the side of the bed without any symptoms Denies any chest pain, palpitation or shortness of breath. And does not have any dizziness He has been requiring up to 6 L of oxygen to maintain saturation Review of Systems Review of Systems: All systems reviewed and are unremarkable except as noted below Physical Exam Physical Exam: Sitting at the edge of the bed without any acute distress Constitutional: well developed, well nourished, + ill appearing and + obese Eyes: PERRL, conjunctivae normal, anicteric sclerae ENMT: external ear and nose normal, oropharynx normal Neck: trachea midline, no thyromegaly Respiratory: + respiratory distress (Mild respiratory distress) Auscultation: + diminished lung sounds and + crackles (Minimal crackles at the bases) Cardiovascular: Rate/Rhythm: regular rate and regular rhythm; not tachycardic Heart Sounds: normal S1 and normal S2; no murmur Extremities: + edema (Trace edema bilaterally) Gastrointestinal (Abdomen): Inspection/Auscultation: normal bowel sounds; abdomen not distended Percussion/Palpation: abdomen soft; abdomen nontender Musculoskeletal: No acute arthritis involving any of the joint Neurologic: normal touch/pain/proprioception and moves all extremities; no focal motor deficits Lymphatic: no cervical or axillary lymphadenopathy Results & Data Results & Data Vital Signs (Past 12 Hours) Vital Signs Temp Pulse Resp BP BP Pulse Ox O2 Del Method 11/16/25 08:40 85 18 120/68 99 Nasal Cannula 11/16/25 07:34 68 16 95 Nasal Cannula 11/16/25 02:37 36.6 C 61 20 114/61 96 High Flow Nasal Cannula 11/16/25 02:25 79 18 96 Nasal Cannula 11/15/25 23:10 37.0 C 66 18 110/50 L 100 High Flow Nasal Cannula O2 Flow Rate 11/16/25 08:40 6 11/16/25 07:34 6 11/16/25 02:37 6.0 11/16/25 02:25 6 11/15/25 23:10 8.0 Laboratory Results Short CBC 11/16/25 Range/Units 05:59 WBC 8.37 (4.8-10.8) K/ul Hgb 8.4 L (14.0-18.0) g/dL Hct 26.2 L (42.0-52.0) % Plt Count 233 (130-400) K/uL BMP 11/16/25 05:59 Sodium 144 Potassium 3.8 Chloride 99 Carbon Dioxide 34 H BUN 67 H Creatinine 2.73 H Glucose 148 H Calcium 8.5 L Medications Administered Current Inpatient Medications Acetaminophen (Acetaminophen 325 Mg Tab) 650 mg PO Q4H PRN PRN Reason: Pain or Fever Stop: 12/07/25 16:31 Albuterol (Albut/Ipratrop 3mg/0.5mg Neb 3 Ml Vial) 3 ml NEB Q6R [facility]; Protocol Stop: 12/08/25 12:59 Last Admin: 11/16/25 07:34 Dose: 3 ml Amlodipine Besylate (Amlodipine Besylate 5 Mg Tab) 5 mg PO DAILY [facility] Stop: 12/10/25 08:59 Last Admin: 11/16/25 09:13 Dose: 5 mg Ascorbic Acid (Ascorbic Acid 500 Mg Tab) 500 mg PO DAILY [facility] Stop: 12/08/25 08:59 Last Admin: 11/16/25 09:12 Dose: 500 mg Aspirin (Aspirin 81 Mg Chew) 81 mg PO DAILY [facility] Stop: 12/08/25 08:59 Last Admin: 11/16/25 09:14 Dose: 81 mg Atorvastatin Calcium (Atorvastatin 40 Mg Tab) 40 mg PO DAILY [facility] Stop: 12/08/25 08:59 Last Admin: 11/16/25 09:13 Dose: 40 mg Carvedilol (Carvedilol 25 Mg Tab) 25 mg PO BIDM [facility] Stop: 12/07/25 20:59 Last Admin: 11/16/25 09:12 Dose: 25 mg Cetirizine HCl (Cetirizine Hcl 10 Mg Tablet) 10 mg PO DAILY [facility] Stop: 12/08/25 08:59 Last Admin: 11/16/25 09:13 Dose: 10 mg Dextrose (Dextrose 50% 50 Ml Syringe) 25 - 50 ml IV UD PRN; Protocol PRN Reason: Hypoglycemia Protocol Stop: 12/07/25 15:25 Famotidine (Famotidine 20 Mg Tab) 20 mg PO BID [facility] Stop: 12/07/25 20:59 Last Admin: 11/15/25 21:08 Dose: 20 mg Ferrous Sulfate (Ferrous Sulfate 325 Mg Tab) 325 mg PO DAILY [facility] Stop: 12/08/25 08:59 Last Admin: 11/16/25 09:13 Dose: 325 mg Folic Acid (Folic Acid 1 Mg Tab) 1 mg PO DAILY [facility] Stop: 12/08/25 08:59 Last Admin: 11/16/25 09:13 Dose: 1 mg Glucagon (Glucagon For Inj 1 Mg Vial) 1 mg SQ UD PRN; Protocol PRN Reason: Hypoglycemia Protocol Stop: 12/07/25 15:25 Glucose (Glucose 40% Gel 15 Gm Tube) 15 - 30 gm PO UD PRN; Protocol PRN Reason: Hypoglycemia Protocol Stop: 12/07/25 15:25 Glucose (Glucose 10 Tab/Tube) 4 - 8 tab PO UD PRN; Protocol PRN Reason: Hypoglycemia Protocol Stop: 12/07/25 15:25 Insulin Aspart (Insulin Aspart Per Unit Charge) 0 units SC ACHS [facility] Stop: 12/11/25 20:59 Last Admin: 11/16/25 09:10 Dose: 4 units Insulin Glargine (Lantus Per Unit Charge) 10 units SQ DAILY [facility] Stop: 12/14/25 08:59 Last Admin: 11/16/25 09:11 Dose: 10 units Miscellaneous (Carbohydrates For Hypoglycemia ) 15 - 30 gm PO UD PRN PRN Reason: Hypoglycemia Protocol Stop: 12/07/25 15:25 Last Admin: 11/08/25 02:00 Dose: 30 gm Miscellaneous Information (Pharmacy Glycemic Mgmt Consult) 1 each N/A UD PRN; Protocol PRN Reason: Consult Stop: 12/07/25 16:15 Montelukast Sodium (Montelukast Sodium 10 Mg Tablet) 10 mg PO HS [facility] Stop: 12/07/25 20:59 Last Admin: 11/15/25 21:08 Dose: 10 mg Ondansetron HCl (Ondansetron Inj 2 Mg/Ml 2 Ml Vial) 4 mg IV Q6H PRN PRN Reason: Nausea Stop: 12/07/25 16:31 Pantoprazole Sodium (Pantoprazole 40 Mg Tab) 40 mg PO DAILY [facility] Stop: 12/08/25 08:59 Last Admin: 11/16/25 09:13 Dose: 40 mg Polyethylene Glycol (Polyethylene (Miralax) 17 Gm Pack) 17 gm PO DAILY PRN PRN Reason: Constipation Stop: 12/07/25 16:31 Torsemide (Torsemide 20 Mg Tab) 60 mg PO BID [facility] Stop: 12/15/25 08:59 Last Admin: 11/16/25 09:12 Dose: 60 mg Umeclidinium Dowell (Umeclidinium Dowell 62.5mcg/Blister 7 Puffs/Inhaler) 1 puffs INH DAILY [facility] Stop: 12/08/25 08:59 Last Admin: 11/16/25 09:10 Dose: 1 puffs (3) Anemia Anemia type: unspecified type Qualified Code(s): D64.9 - Anemia, unspecified
--- NOTE | 2025-11-16 10:11 | Nephrology Progress Note ---
Date of Service November 16, 2025 Assessment & Plan (1) MARIAA (acute kidney injury): Plan: NEPH d/c RECS: DX: -stage 1 nonoliguric MARIAA from ATN -CKD 3B multifactorial, baseline creatinine 2 -[id number] syndrome -acute on chronic HFpEF -acute on chronic hypoxic respiratory failure -chronic multifactorial anemia, including of CKD and w/ iron deficiency RX: -torsemide 60 mg bid17 -amlodipine 5 mg daily -carvedilol 25 mg bidM >>HOLD jardiance at d/c OTHER CARE: -FR 1.8L >>pls educate pt on this -<2 gm daily Na diet -daily STANDING weight and bring log to f/u appts w/ PCP, nephro, cardiology -bring home bp cuff to nephro appt if he has one -BMP, hgb, ferritin, t sat, ACR, UACM to be drawn 11/20 or 11/21 and bmp, hgb to be drawn 11/27 or 11/28 >> orders to be placed by neph nurse -update address >> pt states he's currently living in [place]; but address listed as [place] in [facility] and [facility] records F/U APPT: -hospital d/c visit w/ Dr Bauman in [facility] in 2-3 wks -w/ nephro anemia/MTM clinic (recommend transfer care to them under nephro direction for GDMT for CKM and anemia from DM MTM under PCP direction) Care coordinated repeatedly w/ Dr Rojas via [employer]Text re d/c dispo, f/u appts, current 02 needs, d/c meds and planned OP MTM change; we are in agreement. a/w creat 1.9 (also kyleigh value), peak value 3.3 on 11/13; today at 2.7, about same as yesterday. 1 gm proteinuria on admission with nephritic/inflamed sediment. MARIAA is most likely ATN in the setting of CHF/Hypoxia/resp failure. this is why we are seeing clear pattern of daily rise in creatinine. with underlying CKD he is prone for that. Stop jardiance, JETHRO, ARB, NSAID if any. Avoid contrast agents. will continue with lasix 40 iv bid---got one dose just now. daily labs. I and O charting. (2) CKD (chronic kidney disease), stage III: Plan: baseline CKD 3B from mmultiple issues. Current creat higher than baseline of around 2. (3) Acute on chronic hypoxic respiratory failure: Plan: Sig decline since pneumonia adx in 08/2025. even now needing high 02. Not a lot of Diuresis so far. Consider CT chest as OP if not already done also to evaluate for underlying Pulm issues also. but for now will assume mainly related with CHF Admission and Anticipated Discharge Date Admission Date: November 07, 2025 Subjective feels improved; hoping for d/c today Physical Exam 2 Constitutional: well developed and well nourished Eyes: EOM intact bilaterally ENMT: Mouth: + dry oral mucous membranes Neck: no nuchal rigidity Respiratory: + labored breathing (slightly increased WOB lying flat on 6LNC), able to speak in complete sentences and + tachypneic; no cough and expiratory phase not prolonged Auscultation: + diminished lung sounds and + crackles (fine crackles L field; R base fine); no wheezes Cardiovascular: Rate/Rhythm: regular rate and regular rhythm Extremities: + edema (trace pretibial BL) Gastrointestinal (Abdomen): Inspection/Auscultation: normal bowel sounds P ercussion/Palpation: abdomen soft; abdomen nontender Musculoskeletal: Extremities: strength 5/5 throughout Skin: no rashes, warm and dry Neurologic: hernandez, fluent speech, no tremor Psychiatric: Orientation: alert, oriented to person, oriented to place and cooperative Results & Data Vital Signs (Past 12 Hours) Vital Signs Temp Pulse Pulse Resp BP BP Pulse Ox 11/16/25 08:40 85 18 120/68 99 11/16/25 08:00 62 11/16/25 08:00 11/16/25 07:34 68 16 95 11/16/25 02:37 36.6 C 61 20 114/61 96 11/16/25 02:25 79 18 96 11/15/25 23:10 37.0 C 66 18 110/50 L 100 O2 Del Method O2 Flow Rate 11/16/25 08:40 Nasal Cannula 6 11/16/25 08:00 11/16/25 08:00 Nasal Cannula, High Flow Nasal Cannula 11/16/25 07:34 Nasal Cannula 6 11/16/25 02:37 High Flow Nasal Cannula 6.0 11/16/25 02:25 Nasal Cannula 6 11/15/25 23:10 High Flow Nasal Cannula 8.0 Laboratory Results 11/16/25 05:59 11/16/25 05:59
[2025-11-16 13:31] VITALS: RESP 16; O2SAT 94
[2025-11-16 14:12] VITALS: BP 120/68; PULSE 60
--- NOTE | 2025-11-16 17:01 | Discharge Summary ---
Date of Service November 16, 2025 Admission HPI Per Admitting Provider This is a 70yo M with PMH of combined systolic and diastolic HF, type 2 diabetes, hypertension, COPD, heart block s/p pacemaker placement, paroxysmal atrial fibrillation, history of CVA, CKD 3, chronic hypoxic respiratory failure on 2L NC and other medical problems listed below who presents from home with increased shortness of breath and lower extremity swelling x 4 weeks. Ever since patient was admitted to [facility] in August for pneumonia, has felt more short of breath. Was discharged from that admission on 2 L nasal cannula O2, which she has remained on at home. Patient continues to feel short of breath, which is exacerbated by movement and feels generally weak and fatigued compared to the past. Had a Watchman device implanted by Dr. Meeks in February of this year and was instructed via [employer] messaging to discontinue Plavix last month. Patient is unsure if he is still taking this or not. He manages his own medications. He was started by his physician aide on Lasix 20 mg twice daily, per chart review. However, patient states he has been taking 20 mg daily at home, last dose this morning. Denies any fever, chills, nasal congestion, sore throat or wheezing. No headache, chest pain pain or palpitations. No nausea, vomiting, abdominal pain, dysuria, diarrhea or constipation. Ambulates with a walker at home but admittedly does not use it. Last echo performed 10/26/25 and was stable as compared to previous echo from Nov 2023. EF remains 50-54%, with septal motion is abnormal consistent with right ventricular pacemaker. The left atrium is moderately enlarged. Admission Exam Per Admitting Provider Physical Exam: General Appearance: WD/WN, vitals as above, NAD, sitting up in bed, pleasant, conversational dyspnea Head: normocephalic, atraumatic Eyes: normal inspection, PERRL, conjunctivae normal, anicteric sclerae ENT: external ear and nose normal Neck: normal visual inspection Respiratory: increased respiratory effort, bibasilar rales, no wheeze or, rhonchi Cardiovascular: RRR, 1+ BLE edema Chest: normal inspection of chest Abdomen/GI: normal bowel sounds, soft, nontender, no hepatosplenomegaly Extremities/Musculoskeletal: no cyanosis or clubbing, extremities motor strength 5/5 Neurologic: PERRL, EOMI, accommodation nl, no face palsy, no dysarthria, CN's II-XI intact bilaterally and moves all extremities Psychiatric: A+Ox3, poor insight Skin: normal color, warm/dry Principal Diagnosis Acute on chronic HFpEF, acute on chronic hypoxic respiratory failure, CKD, COPD, paroxysmal atrial fibrillation Discharge Exam Sitting at the edge of the bed without any acute distress Constitutional well developed, well nourished, + ill appearing and + obese Eyes PERRL, conjunctivae normal, anicteric sclerae ENMT external ear and nose normal, oropharynx normal Neck trachea midline, no thyromegaly Respiratory + respiratory distress (Mild respiratory distress) Auscultation: + diminished lung sounds and + crackles (Minimal crackles at the bases) Cardiovascular Rate/Rhythm: regular rate and regular rhythm; not tachycardic Heart Sounds: normal S1 and normal S2; no murmur Extremities: + edema (Trace edema bilaterally) Gastrointestinal (Abdomen) Inspection/Auscultation: normal bowel sounds; abdomen not distended Percussion/Palpation: abdomen soft; abdomen nontender Neurologic normal touch/pain/proprioception and moves all extremities; no focal motor deficits Lymphatic no cervical or axillary lymphadenopathy Discharge Data Allergies Allergy/AdvReac Type Severity Reaction Status Date / Time Penicillins Allergy Unknown UNKNOWN Verified 07/02/15 00:43 Consultations 11/07/25 14:10 ED Decision to Admit Stat 11/07/25 15:13 Consult Cardiology Routine 11/09/25 12:49 Consult Nephrology Routine Hospital Course (1) Acute on chronic diastolic heart failure with preserved ejection fraction: (2) Acute on chronic hypoxic respiratory failure: (3) Anemia: (4) CKD (chronic kidney disease), stage III: Plan This is a 70yo M with PMH of combined systolic and diastolic HF, type 2 diabetes, hypertension, COPD, heart block s/p pacemaker placement, paroxysmal atrial fibrillation, history of CVA, CKD 3, chronic hypoxic respiratory failure on 2L NC and other medical problems listed below who presents from home with increased shortness of breath and lower extremity swelling x 4 weeks. Acute on chronic respiratory failure Acute on chronic HFpEF Discharged from hospitalization at [place] for COPD exacerbation secondary to PNA in Jul 2025 with new 2L O2 requirement Patient presenting with worsening SOB, edema, increased O2 requirement CXR reviewed - cardiomegaly and cardiac pacemaker with evidence of congestive failure and pulmonary edema TTE on 10/26/25 with EF 50-54%, septal motion is abnormal consistent with right ventricular pacemaker, left atrium is moderately enlarged -> similar compared to prior in Nov 2023 Cardiology decreased amlodipine to 5mg daily Ongoing diuresis per Nephrology recs-> torsemide 60mg PO bid *Of note, patient received 60mg IV lasix and 60mg PO torsemide on 11/14 evening due to incorrect timing of order for PO torsemide that was to begin am of 11/15 - vitals, labs, exam findings all stable despite error* He remains stable and has been requiring up to 6 L to maintain saturation His cumulative fluid balance is -8420 mL and he has been getting oral diuretics Likely to be discharged to [facility] this afternoon Nocturnal pulse on on 11/13 revealed 9 desat events while on 4L NC Patient continues to have varying levels of oxygen requirements Nursing reports that patient is not compliant and frequently removes oxygen Placed on bipap overnight 11/15 for short period of time and weaned back to [place] CXR notes interval progression of bilateral pleural effusion and interval inhomogenous opacification in right upper zone Low suspicion for pneumonia given no leukocytosis, clear lungs, no s/s, procalcitonin pending Monitor off abx COPD Exacerbation possible but presentation likely due to CHF more than COPD Continue home Spiriva inhaler, duonebs q6hr Follow up with Pulmonology as scheduled in November Trialed steroids but felt to be more consistent with cardiac etiology, discontinued Does not have any COPD exacerbation but has been requiring more oxygen to maintain saturation Multifactorial anemia Hgb 8-9 since August, was closer to 10 prior to that Started on iron supplementation during hospitalization at [facility], has been taking TID PCP notes possible need for IV iron due to CKD and poor absorption of oral iron, s/p Venofer x 1 on 11/09 B12 and folate WNL Hgb persisting around 7.0 s/p IV venofer x3 doses and Epoetin Mukesh x1 on 11/[address] Bauman recommends anemia clinic follow up Received intravenous Venofer x 3 and also appropriate x 1 Hemoglobin remains stable at 8.4 MARIAA 2/2 ATN superimposed on CKD [address] Bauman, feels Cr trend is 2/2 ATN in setting of underlying CKD, hypoxia, CHF Creatinine baseline of ~2.0 During admission, Cr up-trending from 1.88 -> 2.88 -> 3.01-> 3.27-> 3.07-> 2.74 today Jardiance held, not on JETHRO, ARB or nsaids Paroxysmal A fib History of complete heart block s/p dual chamber pacemaker (2019) Presence of Watchman left atrial appendage closure device Rate controlled No longer on anticoagulation since presence of Watchman left atrial appendage closure device Continue baby aspirin and Coreg Rate is controlled, appreciate cardiology input and recommendation and will continue current medications Hyperkalemia-> resolved Resolved with lokelma Type 2 diabetes A1c 6.7 Hold home agents, Jardiance placed on hold BSG ACHS and SSI while inpatient Glycemic consult DVT Prophylaxis: SCDs due to anemia Code Status: FULL CODE PCP: Reji Love Disposition: dc to [facility] when bed available I spent a total of 37 minutes coordinating, documenting and providing care for this patient excluding time spent in the performance of separately billed services or time spent by another provider/QHP. Total Time Total Time Spent Total Time Spent (In Minutes): 45 Minutes Discharge Plan Discharge Items Patient Disposition: Transfer Inpatient Rehab Fac Reason For Visit: HYPOXIA, DECOMP CHF Discharge Diagnosis: Acute on chronic HFpEF, acute on chronic hypoxic respiratory failure, CKD, COPD, paroxysmal atrial fibrillation Condition on Discharge: Fair Activity: Resume your previous activity Activity Comment: continue PT and OT Non-emergency contact: Primary Care Provider Call non-emergency contact if: you have any medication questions and your symptoms worsen Follow-up/Referrals: Reji Love MD [Primary Care Provider] - ( please make an appointment with your PCP within 7 days following discharge from the facility) Diet: Carb Consistent or DM2, Heart Healthy and Low Sodium (2gm) Fluids: 1800ml (7 cups) Addtl Attending Provider Instructions: Please take precautions to avoid falls Take your medications as advised Restrict your fluid intake to 1800 mL a day Please keep appointments with your healthcare provider Your Jardiance has been discontinued Amlodipine has been decreased to 5 mg daily Furosemide has been discontinued and replaced by torsemide 60 mg twice daily Your Plavix has been discontinued as per recommendation from commission clerk You are advised to keep taking your oxygen at nighttime BMP, hgb, ferritin, t sat, ACR, UACM to be drawn 11/20 or 11/21 and bmp, hgb to be drawn 11/27 or 11/28 >> orders to be placed by neph nurse Pending Studies at Discharge: No Stand-Alone Forms: My [facility] Skilled Items Patient informed of condition?: Yes DNR: No Discharge Level of Care: Acute rehab Communicable Disease: No Discharge Prognosis: Stable Lines: None Urinary Catheter: No Medications and DC Order Prescriptions: New torsemide 20 mg Tablet 60 mg PO BID Qty: 60 0RF Continued atorvastatin 40 mg tablet 40 mg PO DAILY carvedilol 25 mg tablet 25 mg PO BID cetirizine 10 mg tablet 10 mg PO DAILY famotidine 20 mg tablet 20 mg PO BID ferrous sulfate 325 mg (65 mg iron) tablet 325 mg PO TID ascorbic acid (vitamin C) [Vitamin C] 500 mg Tablet,Chewable 500 mg PO DAILY omeprazole 20 mg capsule,delayed release(DR/EC) 20 mg PO DAILY aspirin 81 mg tablet,chewable 81 mg PO DAILY folic acid 1 mg Tablet 1 mg PO DAILY montelukast 10 mg tablet 10 mg PO HS Spiriva Respimat 2.5 mcg/actuation mist 2 inh INHALATION DAILY insulin degludec [Tresiba FlexTouch U-100] 100 unit/mL (3 mL) insulin pen 18 unit SUBCUT DAILY Ozempic 0.25 mg or 0.5 mg (2 mg/3 mL) pen injector 0.5 mg SUBCUT WK Changed amlodipine 10 mg tablet 5 mg PO DAILY Qty: 0 0RF Discontinued clopidogrel 75 mg tablet 75 mg PO DAILY furosemide 20 mg tablet 20 mg PO DAILY Jardiance 25 mg tablet 25 mg PO DAILY Discharge Orders: Discharge Order (Routine); Ordered 11/16/25 Ordered By: Judy Ivan/Other Patient Handouts: Managing Type 2 Diabetes Admission Data Admit Date/Time: 11/07/25 14:17 Attending Provider: Judy Rojas Admit Provider: Frankie Chen Primary Care Provider: Reji Love Other Providers: Frankie Chen; Senthil Bauman; [facility] Other Interventions: Discharge Summary Assessment (RN) Last Done: 11/16/25 14:11
== END 2025-11-16 16:47 | DRG 291 ==
LOC: ED 12:31 → 4W 14:17 → SUATTDRO 14:17 → 4W 16:10
DX: Z95.0 Presence of cardiac pacemaker; Z95.828 Presence of other vascular implants and grafts; E11.22 Type 2 diabetes mellitus with diabetic chronic kidney disease; I50.33 Acute on chronic diastolic (congestive) heart failure; Z88.0 Allergy status to penicillin; N18.30 Chronic kidney disease, stage 3 unspecified; D53.9 Nutritional anemia, unspecified; J96.21 Acute and chronic respiratory failure with hypoxia; I13.0 Hypertensive heart and chronic kidney disease with heart failure and stage 1 through stage 4 chronic kidney disease, or unspecified chronic kidney disease; Z79.4 Long term (current) use of insulin; Z79.82 Long term (current) use of aspirin; J44.9 Chronic obstructive pulmonary disease, unspecified; I44.2 Atrioventricular block, complete; I48.0 Paroxysmal atrial fibrillation; Z86.73 Personal history of transient ischemic attack (TIA), and cerebral infarction without residual deficits; N17.0 Acute kidney failure with tubular necrosis; E87.5 Hyperkalemia; I48.19 Other persistent atrial fibrillation; Z79.85 Long-term (current) use of injectable non-insulin antidiabetic drugs